=== PATIENT | male | born 1940 | race Caucasian/White ===

== ENCOUNTER 2017-10-18 14:47 | Emergency (ER) | payer OTHER ==
[2017-10-18] MEDS: KETOROLAC 30 MG INJ IM (16:40)
[2017-10-18] MEDS: morphine 4 MG/ML VIAL IM (16:40)
== END 2017-10-18 17:47 | disposition home or self-care (01) ==
LOC: FTE 14:47
DX: M54.30 Sciatica, unspecified side (principal); I10 Essential (primary) hypertension; Z79.82 Long term (current) use of aspirin
CPT/HCPCS: 72131; 96372; 99285-25

== ENCOUNTER 2018-02-08 12:28 | Inpatient (IN) | payer OTHER ==
[2018-02-08] MEDS: KETOROLAC 30 MG INJ IM (13:15)
[2018-02-08] MEDS ORDERED: ONDANSETRON 4 MG INJ IV (14:30)
[2018-02-08] MEDS ORDERED: NACL 0.9% 3 ML SYG IV (14:30)
[2018-02-08] MEDS ORDERED: VANCOMYCIN IV PER PHARMACY XX (14:30)
[2018-02-08] MEDS ORDERED: DOCUSATE SODIUM 100 MG CAP PO (14:30)
[2018-02-08] MEDS: NIFEdipine (XL) 30 MG TAB PO (14:30)
[2018-02-08 14:35] LABS: ADD MAN DIFF? NO
[2018-02-08 14:39] LABS: BASOPHIL # 0.1 10^3/ul (0.0-0.1); BASOPHILS % 0.8 % (0.0-2.0); EOSINOPHILS # 0.5 10^3/ul (0.0-0.5); EOSINOPHILS % 7.2 % (0.0-7.0); HEMATOCRIT 34.8 % (42.0-52.0); HEMOGLOBIN 11.2 g/dl (14.0-18.0); LYMPHOCYTES # 1.3 10^3/ul (0.8-2.9); LYMPHOCYTES % 19.4 % (15.0-51.0); MEAN CORPUSCULAR HEMOGLOBIN 30.6 pg (29.0-33.0); MEAN CORPUSCULAR HGB CONC 32.2 g/dl (32.0-37.0); MEAN CORPUSCULAR VOLUME 95.1 fl (82.0-101.0); MEAN PLATELET VOLUME 10.8 fl (7.4-10.4); MONOCYTE # 0.7 10^3/ul (0.3-0.9); MONOCYTES % 10.2 % (0.0-11.0); NEUTROPHIL # 4.1 10^3/ul (1.6-7.5); NEUTROPHILS % 62.1 % (39.0-77.0); PLATELET COUNT 210 10^3/UL (140-415); RED BLOOD COUNT 3.66 10^6/ul (4.70-6.10); RED CELL DISTRIBUTION WIDTH 15.3 % (11.5-14.5)
[2018-02-08 14:39] LABS: WHITE BLOOD COUNT 6.6 10^3/ul (4.8-10.8)
[2018-02-08] MEDS: PIPER-TAZO 3.375 GM IV (PMX) 100 ML IVPB (14:47)
[2018-02-08 14:58] LABS: ANION GAP 15 (8-16); BLOOD UREA NITROGEN 81 mg/dl (7-20); CARBON DIOXIDE 17 mmol/L (21-31); CHLORIDE 113 mmol/L (97-110); CREATININE 5.74 mg/dl (0.61-1.24); GLUCOSE 113 mg/dl (70-220); INR 1.73; PROTIME 20.6 Sec (11.9-14.9); PT RATIO 1.6; SODIUM 139 mmol/L (135-144)
[2018-02-08] MEDS: HYDROCODONE/APAP (5/325) TAB PO (14:58)
[2018-02-08 14:59] LABS: PARTIAL THROMBOPLASTIN TIME 40.3 Sec (25.0-35.0)
[2018-02-08 15:12] LABS: POTASSIUM 6.2 mmol/L (3.5-5.1)
[2018-02-08] MEDS: DEXTROSE 50% 50 ML SYRINGE IV (15:32)
[2018-02-08] MEDS: SOD CHLORIDE 0.9% 1,000 ML IV (15:34)
[2018-02-08] MEDS: NA BICARBONATE 8.4% 50 ML SYG IV (15:35)
[2018-02-08] MEDS: INSULIN REGULAR, HUMAN 100 UNIT/1 ML 3ML VIAL IVP (15:37)
[2018-02-08] MEDS: VANCOMYCIN 1.5 GM in SOD CHLORIDE 0.9% 250 ML IVPB (15:44)
[2018-02-08] MEDS: LOSARTAN 50 MG TAB PO (15:51)
[2018-02-08] MEDS: NA POLYST SULFON 15 GM/60 ML BTL PO (15:53)
[2018-02-08 17:53] LABS: ADD UMIC YES; UR ASCORBIC ACID NEGATIVE (NEGATIVE); UR BILIRUBIN (Dip) NEGATIVE (NEGATIVE); UR BLOOD (Dip) 2+ mg/dL (NEGATIVE); UR CLARITY CLEAR (CLEAR); UR COLOR STRAW (YELLOW); UR GLUCOSE (Dip) 1+ mg/dL (NEGATIVE); UR KETONES (Dip) NEGATIVE (NEGATIVE); UR LEUKOCYTE ESTERASE (Dip) NEGATIVE Leu/ul (NEGATIVE); UR MUCUS FEW /HPF (NONE SEEN); UR NITRITE (Dip) NEGATIVE (NEGATIVE); UR RBC 27 /HPF (0-5); UR SPECIFIC GRAVITY (Dip) 1.013 (1.003-1.030); UR TOTAL PROTEIN (Dip) 1+ mg/dl (NEGATIVE); UR UROBILINOGEN (Dip) NEGATIVE (NEGATIVE); UR WBC 1 /HPF (0-5)
[2018-02-08 18:04] LABS: CREATININE,URINE RANDOM 76.79 mg/dl (20-370); POTASSIUM,URINE RANDOM 26.8 mmol/L (25-125)
[2018-02-08 18:04] LABS: SODIUM,URINE RANDOM 80 mmol/L (30-90)
[2018-02-08 19:35] LABS: ANION GAP 14 (8-16); BLOOD UREA NITROGEN 79 mg/dl (7-20); CALCIUM 8.4 mg/dl (8.4-10.2); CARBON DIOXIDE 18 mmol/L (21-31); CHLORIDE 114 mmol/L (97-110); CREATININE 5.63 mg/dl (0.61-1.24); GLUCOSE 84 mg/dl (70-220); POTASSIUM 5.1 mmol/L (3.5-5.1); SODIUM 141 mmol/L (135-144)
[2018-02-08 19:36] LABS: CREATININE,URINE RANDOM 75.25 mg/dl (20-370); PROTEIN/CREAT RATIO 0.94 RATIO
[2018-02-08] MEDS: NIFEdipine (XL) 60 MG TAB PO (21:24)
[2018-02-08] MEDS: CITRIC ACID/SODIUM CITRATE 15 ML CUP PO (21:24)
[2018-02-08] MEDS: APIXABAN 5 MG TABLET PO (21:25)
[2018-02-08] MEDS: PIPER-TAZO 2.25 GM (PMX) 50 ML IVPB (21:27)
[2018-02-08] MEDS: morphine 2 MG INJ IV (21:28)
[2018-02-08] MEDS ORDERED: PIPER-TAZO 3.375 GM IV (PMX) 100 ML IVPB (22:00)
[2018-02-09] MEDS: hydrALAzine 20 MG INJ IV ×2 (04:24→09:34)
[2018-02-09] MEDS: PANTOPRAZOLE (EC) 40 MG TAB PO (05:22)
[2018-02-09] MEDS: HYDROCODONE/APAP (5/325) TAB PO ×2 (05:22→22:24)
[2018-02-09] MEDS: PIPER-TAZO 2.25 GM (PMX) 50 ML IVPB ×3 (05:26→21:15)
[2018-02-09] MEDS: CITRIC ACID/SODIUM CITRATE 15 ML CUP PO ×3 (07:45→20:29)
[2018-02-09] MEDS: APIXABAN 5 MG TABLET PO ×2 (07:45→20:30)
[2018-02-09] MEDS: NIFEdipine (XL) 60 MG TAB PO ×2 (07:47→20:30)
[2018-02-09] MEDS: ASPIRIN 81 MG TAB PO (08:44)
[2018-02-09] MEDS: NITROGLYCERIN 0.2 MG/HR PATCH TRANSDERM (09:34)
[2018-02-09 09:35] LABS: ADD MAN DIFF? NO
[2018-02-09 09:37] LABS: BASOPHIL # 0.1 10^3/ul (0.0-0.1); BASOPHILS % 0.7 % (0.0-2.0); EOSINOPHILS # 0.5 10^3/ul (0.0-0.5); EOSINOPHILS % 6.3 % (0.0-7.0); HEMATOCRIT 32.4 % (42.0-52.0); HEMOGLOBIN 10.5 g/dl (14.0-18.0); LYMPHOCYTES % 13.6 % (15.0-51.0); MEAN CORPUSCULAR HEMOGLOBIN 30.9 pg (29.0-33.0); MEAN CORPUSCULAR HGB CONC 32.4 g/dl (32.0-37.0); MEAN CORPUSCULAR VOLUME 95.3 fl (82.0-101.0); MEAN PLATELET VOLUME 11.5 fl (7.4-10.4); MONOCYTE # 0.5 10^3/ul (0.3-0.9); MONOCYTES % 7.2 % (0.0-11.0); NEUTROPHIL # 5.4 10^3/ul (1.6-7.5); NEUTROPHILS % 71.8 % (39.0-77.0); PLATELET COUNT 203 10^3/UL (140-415); RED CELL DISTRIBUTION WIDTH 15.9 % (11.5-14.5)
[2018-02-09 09:37] LABS: WHITE BLOOD COUNT 7.5 10^3/ul (4.8-10.8)
[2018-02-09 10:03] LABS: ALANINE AMINOTRANSFERASE 18 IU/L (13-69); ALBUMIN 2.9 g/dl (3.3-4.9); ALBUMIN/GLOBULIN RATIO 1.11; ALKALINE PHOSPHATASE 56 IU/L (42-121); ANION GAP 17 (8-16); ASPARTATE AMINO TRANSFERASE 11 IU/L (15-46); BILIRUBIN,INDIRECT 0.7 mg/dl (0-1.1); BILIRUBIN,TOTAL 0.7 mg/dl (0.2-1.3); BLOOD UREA NITROGEN 78 mg/dl (7-20); CALCIUM 8.6 mg/dl (8.4-10.2); CARBON DIOXIDE 17 mmol/L (21-31); CHLORIDE 114 mmol/L (97-110); CREATININE 5.56 mg/dl (0.61-1.24); GLUCOSE 145 mg/dl (70-220); POTASSIUM 4.6 mmol/L (3.5-5.1); SODIUM 143 mmol/L (135-144); TOTAL PROTEIN 5.5 g/dl (6.1-8.1)
[2018-02-09 10:05] LABS: ALBUMIN 3.1 g/dl (3.3-4.9); ANION GAP 15 (8-16); BLOOD UREA NITROGEN 78 mg/dl (7-20); CALCIUM 8.5 mg/dl (8.4-10.2); CARBON DIOXIDE 18 mmol/L (21-31); CHLORIDE 114 mmol/L (97-110); CREATINE KINASE 70 IU/L (23-200); CREATININE 5.68 mg/dl (0.61-1.24); GLUCOSE 146 mg/dl (70-220); MAGNESIUM 2.1 mg/dl (1.7-2.5); PHOSPHORUS 4.7 mg/dl (2.5-4.9); POTASSIUM 4.5 mmol/L (3.5-5.1); SODIUM 142 mmol/L (135-144); URIC ACID 8.1 mg/dl (3.1-7.9)
[2018-02-09] MEDS: SODIUM BICARBONATE (IV ADD) 100 MEQ in DEXTROSE 5% 1,000 ML IV (12:25)
[2018-02-09] MEDS: CLOPIDOGREL 75 MG TAB PO (17:18)
[2018-02-10] MEDS: morphine LIQ (10 MG/5 ML) CUP PO (00:26)
[2018-02-10] MEDS: SODIUM BICARBONATE (IV ADD) 100 MEQ in DEXTROSE 5% 1,000 ML IV ×2 (01:20→06:17)
[2018-02-10] MEDS: PIPER-TAZO 2.25 GM (PMX) 50 ML IVPB ×3 (05:34→21:39)
[2018-02-10] MEDS: PANTOPRAZOLE (EC) 40 MG TAB PO (05:38)
[2018-02-10 06:10] LABS: ADD MAN DIFF? NO
[2018-02-10 06:20] LABS: BASOPHIL # 0.1 10^3/ul (0.0-0.1); BASOPHILS % 0.5 % (0.0-2.0); EOSINOPHILS # 0.4 10^3/ul (0.0-0.5); HEMATOCRIT 30.9 % (42.0-52.0); HEMOGLOBIN 10.3 g/dl (14.0-18.0); LYMPHOCYTES # 1.3 10^3/ul (0.8-2.9); LYMPHOCYTES % 12.5 % (15.0-51.0); MEAN CORPUSCULAR HEMOGLOBIN 30.6 pg (29.0-33.0); MEAN CORPUSCULAR HGB CONC 33.3 g/dl (32.0-37.0); MEAN CORPUSCULAR VOLUME 91.7 fl (82.0-101.0); MONOCYTE # 0.9 10^3/ul (0.3-0.9); MONOCYTES % 9.3 % (0.0-11.0); NEUTROPHIL # 7.3 10^3/ul (1.6-7.5); NEUTROPHILS % 73.4 % (39.0-77.0); PLATELET COUNT 217 10^3/UL (140-415); RED BLOOD COUNT 3.37 10^6/ul (4.70-6.10); RED CELL DISTRIBUTION WIDTH 15.6 % (11.5-14.5)
[2018-02-10 07:00] LABS: ALBUMIN 3.1 g/dl (3.3-4.9); ANION GAP 16 (8-16); BLOOD UREA NITROGEN 76 mg/dl (7-20); CALCIUM 8.8 mg/dl (8.4-10.2); CARBON DIOXIDE 21 mmol/L (21-31); CHLORIDE 103 mmol/L (97-110); CREATININE 6.34 mg/dl (0.61-1.24); GLUCOSE 143 mg/dl (70-220); PHOSPHORUS 5.7 mg/dl (2.5-4.9); POTASSIUM 3.8 mmol/L (3.5-5.1); SODIUM 136 mmol/L (135-144)
[2018-02-10 07:12] LABS: VANCOMYCIN,RANDOM 14.1 ug/ml
[2018-02-10] MEDS: CITRIC ACID/SODIUM CITRATE 15 ML CUP PO ×3 (08:28→20:13)
[2018-02-10] MEDS: APIXABAN 5 MG TABLET PO ×2 (08:29→20:13)
[2018-02-10] MEDS: NIFEdipine (XL) 60 MG TAB PO ×2 (08:29→20:14)
[2018-02-10] MEDS: CLOPIDOGREL 75 MG TAB PO (08:29)
[2018-02-10] MEDS: NITROGLYCERIN 0.2 MG/HR PATCH TRANSDERM (08:29)
[2018-02-10] MEDS: VANCOMYCIN 1 GM 250 ML IVPB (15:39)
[2018-02-11] MEDS: BENZONATATE 100 MG CAP PO (05:48)
[2018-02-11] MEDS: PIPER-TAZO 2.25 GM (PMX) 50 ML IVPB ×3 (05:48→22:34)
[2018-02-11] MEDS: PANTOPRAZOLE (EC) 40 MG TAB PO (05:48)
[2018-02-11 06:14] LABS: ADD MAN DIFF? NO
[2018-02-11 06:19] LABS: WHITE BLOOD COUNT 8.3 10^3/ul (4.8-10.8)
[2018-02-11 06:19] LABS: BASOPHILS % 0.5 % (0.0-2.0); EOSINOPHILS # 0.2 10^3/ul (0.0-0.5); EOSINOPHILS % 2.9 % (0.0-7.0); HEMATOCRIT 28.6 % (42.0-52.0); HEMOGLOBIN 9.7 g/dl (14.0-18.0); LYMPHOCYTES # 1.2 10^3/ul (0.8-2.9); LYMPHOCYTES % 13.9 % (15.0-51.0); MEAN CORPUSCULAR HEMOGLOBIN 31.1 pg (29.0-33.0); MEAN CORPUSCULAR HGB CONC 33.9 g/dl (32.0-37.0); MEAN CORPUSCULAR VOLUME 91.7 fl (82.0-101.0); MEAN PLATELET VOLUME 11.6 fl (7.4-10.4); MONOCYTE # 0.7 10^3/ul (0.3-0.9); MONOCYTES % 8.4 % (0.0-11.0); NEUTROPHIL # 6.1 10^3/ul (1.6-7.5); NEUTROPHILS % 73.8 % (39.0-77.0); PLATELET COUNT 199 10^3/UL (140-415); RED BLOOD COUNT 3.12 10^6/ul (4.70-6.10); RED CELL DISTRIBUTION WIDTH 15.5 % (11.5-14.5)
[2018-02-11 06:43] LABS: ANION GAP 19 (8-16); BLOOD UREA NITROGEN 77 mg/dl (7-20); CALCIUM 8.4 mg/dl (8.4-10.2); CARBON DIOXIDE 24 mmol/L (21-31); CHLORIDE 91 mmol/L (97-110); CREATININE 7.04 mg/dl (0.61-1.24); GLUCOSE 100 mg/dl (70-220); MAGNESIUM 1.9 mg/dl (1.7-2.5); PHOSPHORUS 6.6 mg/dl (2.5-4.9); POTASSIUM 4.1 mmol/L (3.5-5.1); SODIUM 130 mmol/L (135-144)
[2018-02-11] MEDS: HYDROCODONE/APAP (5/325) TAB PO (06:46)
[2018-02-11] MEDS: CITRIC ACID/SODIUM CITRATE 15 ML CUP PO ×3 (08:10→22:35)
[2018-02-11] MEDS: NITROGLYCERIN 0.2 MG/HR PATCH TRANSDERM (08:12)
[2018-02-11] MEDS: CLOPIDOGREL 75 MG TAB PO (08:12)
[2018-02-11] MEDS: APIXABAN 5 MG TABLET PO ×2 (08:12→22:34)
[2018-02-11] MEDS: NIFEdipine (XL) 60 MG TAB PO (08:13)
[2018-02-11] MEDS: ALLOPURINOL 100 MG TAB PO (11:19)
[2018-02-11] MEDS: NIFEdipine (XL) 30 MG TAB PO (22:34)
[2018-02-12 05:31] LABS: ADD MAN DIFF? NO
[2018-02-12 05:36] LABS: WHITE BLOOD COUNT 8.9 10^3/ul (4.8-10.8)
[2018-02-12 05:36] LABS: BASOPHILS % 0.3 % (0.0-2.0); EOSINOPHILS # 0.1 10^3/ul (0.0-0.5); EOSINOPHILS % 1.2 % (0.0-7.0); HEMATOCRIT 26.8 % (42.0-52.0); LYMPHOCYTES # 1.2 10^3/ul (0.8-2.9); MEAN CORPUSCULAR HEMOGLOBIN 30.3 pg (29.0-33.0); MEAN CORPUSCULAR HGB CONC 33.6 g/dl (32.0-37.0); MEAN CORPUSCULAR VOLUME 90.2 fl (82.0-101.0); MEAN PLATELET VOLUME 11.7 fl (7.4-10.4); MONOCYTE # 0.9 10^3/ul (0.3-0.9); MONOCYTES % 9.9 % (0.0-11.0); NEUTROPHIL # 6.7 10^3/ul (1.6-7.5); NEUTROPHILS % 75.3 % (39.0-77.0); PLATELET COUNT 194 10^3/UL (140-415); RED BLOOD COUNT 2.97 10^6/ul (4.70-6.10)
[2018-02-12] MEDS: PIPER-TAZO 2.25 GM (PMX) 50 ML IVPB ×3 (05:51→23:03)
[2018-02-12] MEDS: PANTOPRAZOLE (EC) 40 MG TAB PO (05:51)
[2018-02-12 06:02] LABS: ALBUMIN 3.3 g/dl (3.3-4.9); ANION GAP 22 (8-16); BLOOD UREA NITROGEN 82 mg/dl (7-20); CALCIUM 8.3 mg/dl (8.4-10.2); CARBON DIOXIDE 24 mmol/L (21-31); CHLORIDE 88 mmol/L (97-110); CREATININE 8.08 mg/dl (0.61-1.24); GLUCOSE 118 mg/dl (70-220); PHOSPHORUS 8.1 mg/dl (2.5-4.9); POTASSIUM 3.8 mmol/L (3.5-5.1); SODIUM 130 mmol/L (135-144)
[2018-02-12] MEDS ORDERED: VITAMIN A & D 5 GM OINT PACKET TOP (08:12)
[2018-02-12] MEDS: APIXABAN 5 MG TABLET PO ×2 (08:59→21:03)
[2018-02-12] MEDS: NITROGLYCERIN 0.2 MG/HR PATCH TRANSDERM (08:59)
[2018-02-12] MEDS: CITRIC ACID/SODIUM CITRATE 15 ML CUP PO ×2 (08:59→15:01)
[2018-02-12] MEDS: ALLOPURINOL 100 MG TAB PO (08:59)
[2018-02-12] MEDS: CLOPIDOGREL 75 MG TAB PO (08:59)
[2018-02-12] MEDS: NIFEdipine (XL) 30 MG TAB PO ×2 (09:00→21:02)
[2018-02-12] MEDS ORDERED: ALBUMIN HUMAN 25% 100 ML IV (11:30)
[2018-02-12] MEDS ORDERED: SODIUM CHLORIDE 0.9% 1L BAG IV (11:30)
[2018-02-12 11:49] LABS: HAAIG REFLEX REFLEX FILED
[2018-02-12] MEDS: ALBUTEROL 0.083% (NEB) 2.5 MG/3 ML AMP HHN ×2 (13:51→17:01)
[2018-02-12 14:34] LABS: HEPATITIS B SURFACE ANTIGEN NEGATIVE (NEGATIVE)
[2018-02-12 14:51] LABS: HEPATITIS B CORE ANTIBODY NEGATIVE (NEGATIVE); HEPATITIS C VIRAL ANTIBODY NEGATIVE (NEGATIVE); HIV 1&2 ANTIBODY NEGATIVE (NEGATIVE)
[2018-02-12] MEDS: SOD CHLORIDE 0.45% 1,000 ML IV (15:01)
[2018-02-12] MEDS: FUROSEMIDE 40 MG INJ IV (17:47)
[2018-02-13] MEDS: CITRIC ACID/SODIUM CITRATE 15 ML CUP PO ×3 (00:01→13:15)
[2018-02-13] MEDS: ALBUTEROL 0.083% (NEB) 2.5 MG/3 ML AMP HHN ×2 (00:07→05:05)
[2018-02-13] MEDS ORDERED: FUROSEMIDE 40 MG INJ IM (01:00)
[2018-02-13] MEDS: FUROSEMIDE 40 MG INJ IV (02:07)
[2018-02-13] MEDS: ACETAMINOPHEN 325 MG TAB PO (02:37)
[2018-02-13 05:48] LABS: ADD MAN DIFF? NO
[2018-02-13 05:50] LABS: WHITE BLOOD COUNT 9.7 10^3/ul (4.8-10.8)
[2018-02-13 05:50] LABS: BASOPHILS % 0.2 % (0.0-2.0); EOSINOPHILS # 0.1 10^3/ul (0.0-0.5); EOSINOPHILS % 0.5 % (0.0-7.0); HEMATOCRIT 25.6 % (42.0-52.0); HEMOGLOBIN 8.6 g/dl (14.0-18.0); LYMPHOCYTES % 10.5 % (15.0-51.0); MEAN CORPUSCULAR HEMOGLOBIN 29.7 pg (29.0-33.0); MEAN CORPUSCULAR HGB CONC 33.6 g/dl (32.0-37.0); MEAN CORPUSCULAR VOLUME 88.3 fl (82.0-101.0); MEAN PLATELET VOLUME 11.7 fl (7.4-10.4); MONOCYTE # 0.9 10^3/ul (0.3-0.9); MONOCYTES % 8.7 % (0.0-11.0); NEUTROPHIL # 7.7 10^3/ul (1.6-7.5); NEUTROPHILS % 79.6 % (39.0-77.0); PLATELET COUNT 206 10^3/UL (140-415)
[2018-02-13] MEDS: PANTOPRAZOLE (EC) 40 MG TAB PO (06:00)
[2018-02-13 06:19] LABS: ALBUMIN 3.4 g/dl (3.3-4.9); ANION GAP 24 (8-16); BLOOD UREA NITROGEN 88 mg/dl (7-20); CALCIUM 8.4 mg/dl (8.4-10.2); CARBON DIOXIDE 23 mmol/L (21-31); CHLORIDE 85 mmol/L (97-110); CREATININE 9.22 mg/dl (0.61-1.24); GLUCOSE 116 mg/dl (70-220); MAGNESIUM 2.1 mg/dl (1.7-2.5); PHOSPHORUS 9.4 mg/dl (2.5-4.9); POTASSIUM 3.6 mmol/L (3.5-5.1); SODIUM 128 mmol/L (135-144)
[2018-02-13 06:29] LABS: VANCOMYCIN,RANDOM 18.8 ug/ml
[2018-02-13] MEDS: PIPER-TAZO 2.25 GM (PMX) 50 ML IVPB ×3 (06:32→21:45)
[2018-02-13] MEDS ORDERED: LIDOCAINE 1% (MPF) 30 ML INJ (07:02)
[2018-02-13] MEDS ORDERED: HEPARIN 1000 UNITS/ML 10 ML INJ (07:02)
[2018-02-13] MEDS: LIDOCAINE 1% (MPF) 30 ML INJ INJ (07:59)
[2018-02-13] MEDS: HEPARIN 1000 UNITS/ML 10 ML INJ IRR (08:00)
[2018-02-13] MEDS ORDERED: hydrALAzine 20 MG INJ IV (08:30)
[2018-02-13] MEDS ORDERED: FENTAnyl 50 MCG/ML VIAL IV (08:30)
[2018-02-13] MEDS ORDERED: HYDROmorphONE 1 MG/5 ML IV SYRINGE IV ×2 (08:30)
[2018-02-13] MEDS ORDERED: MEPERIDINE 25 MG INJ IV (08:30)
[2018-02-13] MEDS ORDERED: PROCHLORPERAZINE 10 MG INJ IV (08:30)
[2018-02-13] MEDS ORDERED: DIPHENHYDRAMINE 50 MG INJ IV (08:30)
[2018-02-13] MEDS ORDERED: LABETALOL HCL 20MG INJ IV (08:30)
[2018-02-13] MEDS ORDERED: ONDANSETRON 4 MG INJ IV (08:30)
[2018-02-13] MEDS ORDERED: FENTAnyl 50 MCG/ML VIAL (08:31)
[2018-02-13] MEDS ORDERED: LABETALOL HCL 20MG INJ (09:02)
[2018-02-13] MEDS ORDERED: CEFAZOLIN 1 GM INJ (09:05)
[2018-02-13] MEDS: CLOPIDOGREL 75 MG TAB PO (10:48)
[2018-02-13] MEDS: NITROGLYCERIN 0.2 MG/HR PATCH TRANSDERM (10:48)
[2018-02-13] MEDS: ALLOPURINOL 100 MG TAB PO (10:48)
[2018-02-13] MEDS: NIFEdipine (XL) 30 MG TAB PO ×2 (10:49→21:45)
[2018-02-13] MEDS: HYDROCODONE/APAP (5/325) TAB PO ×2 (10:49→19:47)
[2018-02-13] MEDS: MANNITOL 25% 50 ML INJ IV* (18:15)
[2018-02-13] MEDS: HEPARIN 1000 UNITS/ML 10 ML INJ CATHETER (18:16)
[2018-02-13] MEDS: VANCOMYCIN 750 MG in SOD CHLORIDE 0.9% 150 ML IVPB (21:44)
[2018-02-13] MEDS: APIXABAN 5 MG TABLET PO (21:46)
[2018-02-14] MEDS: morphine LIQ (10 MG/5 ML) CUP PO (01:42)
[2018-02-14] MEDS: MAGNESIUM HYDROXIDE 30ML CUP PO (01:44)
[2018-02-14 05:41] LABS: ADD MAN DIFF? NO
[2018-02-14 05:50] LABS: BASOPHILS % 0.4 % (0.0-2.0); EOSINOPHILS # 0.1 10^3/ul (0.0-0.5); EOSINOPHILS % 1.2 % (0.0-7.0); HEMATOCRIT 23.1 % (42.0-52.0); HEMOGLOBIN 7.9 g/dl (14.0-18.0); LYMPHOCYTES # 0.8 10^3/ul (0.8-2.9); LYMPHOCYTES % 9.7 % (15.0-51.0); MEAN CORPUSCULAR HEMOGLOBIN 30.5 pg (29.0-33.0); MEAN CORPUSCULAR HGB CONC 34.2 g/dl (32.0-37.0); MEAN CORPUSCULAR VOLUME 89.2 fl (82.0-101.0); MEAN PLATELET VOLUME 11.5 fl (7.4-10.4); MONOCYTE # 0.8 10^3/ul (0.3-0.9); MONOCYTES % 9.5 % (0.0-11.0); NEUTROPHIL # 6.5 10^3/ul (1.6-7.5); NEUTROPHILS % 78.8 % (39.0-77.0); PLATELET COUNT 205 10^3/UL (140-415); RED BLOOD COUNT 2.59 10^6/ul (4.70-6.10); RED CELL DISTRIBUTION WIDTH 15.3 % (11.5-14.5)
[2018-02-14 05:50] LABS: WHITE BLOOD COUNT 8.2 10^3/ul (4.8-10.8)
[2018-02-14] MEDS: PANTOPRAZOLE (EC) 40 MG TAB PO (06:14)
[2018-02-14] MEDS: PIPER-TAZO 2.25 GM (PMX) 50 ML IVPB (06:14)
[2018-02-14 06:18] LABS: ALBUMIN 3.2 g/dl (3.3-4.9); ANION GAP 19 (8-16); BLOOD UREA NITROGEN 66 mg/dl (7-20); CALCIUM 8.4 mg/dl (8.4-10.2); CARBON DIOXIDE 25 mmol/L (21-31); CHLORIDE 93 mmol/L (97-110); CREATININE 6.91 mg/dl (0.61-1.24); GLUCOSE 110 mg/dl (70-220); MAGNESIUM 2.1 mg/dl (1.7-2.5); PHOSPHORUS 7.6 mg/dl (2.5-4.9); POTASSIUM 3.5 mmol/L (3.5-5.1); SODIUM 133 mmol/L (135-144)
[2018-02-14] MEDS: ALLOPURINOL 100 MG TAB PO (08:16)
[2018-02-14] MEDS: NITROGLYCERIN 0.2 MG/HR PATCH TRANSDERM (08:20)
[2018-02-14] MEDS: NIFEdipine (XL) 30 MG TAB PO ×3 (08:20→20:56)
[2018-02-14] MEDS: APIXABAN 5 MG TABLET PO (08:51)
[2018-02-14] MEDS: CLOPIDOGREL 75 MG TAB PO (08:51)
[2018-02-14] MEDS: HEPARIN 1000 UNITS/ML 10 ML INJ CATHETER (15:03)
[2018-02-14 17:49] LABS: HEMATOCRIT 23.6 % (42.0-52.0)
[2018-02-14 23:18] LABS: IMMEDIATE SPIN CROSSMATCH 1 1
[2018-02-14] MEDS: hydrALAzine 20 MG INJ IV (23:23)
[2018-02-14] MEDS: SOD CHLORIDE 0.9% 250 ML IV* (23:34)
[2018-02-15] MEDS: PANTOPRAZOLE (EC) 40 MG TAB PO (05:33)
[2018-02-15 05:54] LABS: ADD MAN DIFF? NO
[2018-02-15 06:02] LABS: WHITE BLOOD COUNT 8.3 10^3/ul (4.8-10.8)
[2018-02-15 06:02] LABS: BASOPHIL # 0.1 10^3/ul (0.0-0.1); BASOPHILS % 0.7 % (0.0-2.0); EOSINOPHILS # 0.2 10^3/ul (0.0-0.5); EOSINOPHILS % 2.9 % (0.0-7.0); HEMATOCRIT 26.1 % (42.0-52.0); HEMOGLOBIN 8.7 g/dl (14.0-18.0); LYMPHOCYTES # 0.9 10^3/ul (0.8-2.9); LYMPHOCYTES % 10.8 % (15.0-51.0); MEAN CORPUSCULAR HGB CONC 33.3 g/dl (32.0-37.0); MEAN PLATELET VOLUME 11.5 fl (7.4-10.4); NEUTROPHILS % 72.8 % (39.0-77.0); NUCLEATED RED BLOOD CELLS% 0.2 /100WBC (0.0-0.0); PLATELET COUNT 218 10^3/UL (140-415); RED CELL DISTRIBUTION WIDTH 16.5 % (11.5-14.5)
[2018-02-15 06:28] LABS: ALBUMIN 2.8 g/dl (3.3-4.9); ANION GAP 14 (8-16); BLOOD UREA NITROGEN 38 mg/dl (7-20); CALCIUM 8.4 mg/dl (8.4-10.2); CARBON DIOXIDE 27 mmol/L (21-31); CHLORIDE 99 mmol/L (97-110); CREATININE 4.06 mg/dl (0.61-1.24); GLUCOSE 111 mg/dl (70-220); MAGNESIUM 2.1 mg/dl (1.7-2.5); PHOSPHORUS 4.4 mg/dl (2.5-4.9); POTASSIUM 3.6 mmol/L (3.5-5.1); SODIUM 136 mmol/L (135-144)
[2018-02-15] MEDS: CLOPIDOGREL 75 MG TAB PO (08:25)
[2018-02-15] MEDS: NIFEdipine (XL) 30 MG TAB PO ×2 (08:26→21:00)
[2018-02-15] MEDS: ALLOPURINOL 100 MG TAB PO (08:26)
[2018-02-15] MEDS: NITROGLYCERIN 0.2 MG/HR PATCH TRANSDERM (08:29)
[2018-02-16] MEDS: HEPARIN 1000 UNITS/ML 10 ML INJ CATHETER (01:56)
[2018-02-16] MEDS: hydrALAzine 20 MG INJ IV (05:03)
[2018-02-16] MEDS: PANTOPRAZOLE (EC) 40 MG TAB PO (05:06)
[2018-02-16 05:40] LABS: ADD MAN DIFF? NO
[2018-02-16 06:00] LABS: WHITE BLOOD COUNT 7.7 10^3/ul (4.8-10.8)
[2018-02-16 06:00] LABS: BASOPHILS % 0.4 % (0.0-2.0); EOSINOPHILS # 0.3 10^3/ul (0.0-0.5); EOSINOPHILS % 3.9 % (0.0-7.0); HEMATOCRIT 25.5 % (42.0-52.0); HEMOGLOBIN 8.4 g/dl (14.0-18.0); LYMPHOCYTES # 1.2 10^3/ul (0.8-2.9); LYMPHOCYTES % 14.9 % (15.0-51.0); MEAN CORPUSCULAR HEMOGLOBIN 30.1 pg (29.0-33.0); MEAN CORPUSCULAR HGB CONC 32.9 g/dl (32.0-37.0); MEAN CORPUSCULAR VOLUME 91.4 fl (82.0-101.0); MEAN PLATELET VOLUME 10.9 fl (7.4-10.4); MONOCYTE # 0.9 10^3/ul (0.3-0.9); MONOCYTES % 11.5 % (0.0-11.0); NEUTROPHIL # 5.3 10^3/ul (1.6-7.5); NEUTROPHILS % 68.8 % (39.0-77.0); PLATELET COUNT 239 10^3/UL (140-415); RED BLOOD COUNT 2.79 10^6/ul (4.70-6.10); RED CELL DISTRIBUTION WIDTH 16.8 % (11.5-14.5)
[2018-02-16 06:28] LABS: ANION GAP 14 (8-16); BLOOD UREA NITROGEN 19 mg/dl (7-20); CALCIUM 8.7 mg/dl (8.4-10.2); CARBON DIOXIDE 28 mmol/L (21-31); CHLORIDE 99 mmol/L (97-110); CREATININE 2.54 mg/dl (0.61-1.24); GLUCOSE 101 mg/dl (70-220); PHOSPHORUS 2.8 mg/dl (2.5-4.9); POTASSIUM 3.3 mmol/L (3.5-5.1); SODIUM 138 mmol/L (135-144)
[2018-02-16] MEDS: CLOPIDOGREL 75 MG TAB PO (09:21)
[2018-02-16] MEDS: NIFEdipine (XL) 30 MG TAB PO ×2 (09:21→20:20)
[2018-02-16] MEDS: ALLOPURINOL 100 MG TAB PO (09:22)
[2018-02-16] MEDS: POTASSIUM CHLORIDE (SR) 20 MEQ TAB PO (09:22)
[2018-02-16] MEDS: NITROGLYCERIN 0.2 MG/HR PATCH TRANSDERM (09:23)
[2018-02-16] MEDS ORDERED: AMLODIPINE 10 MG TAB PO (10:30)
[2018-02-16] MEDS: HYDROCODONE/APAP (5/325) TAB PO (14:19)
[2018-02-16] MEDS: ACETAMINOPHEN 325 MG TAB PO (20:27)
[2018-02-17] MEDS: HYDROCODONE/APAP (5/325) TAB PO ×2 (00:08→18:42)
[2018-02-17] MEDS: PANTOPRAZOLE (EC) 40 MG TAB PO (05:21)
[2018-02-17 06:05] LABS: ADD MAN DIFF? NO
[2018-02-17 06:11] LABS: BASOPHIL # 0.1 10^3/ul (0.0-0.1); BASOPHILS % 0.7 % (0.0-2.0); EOSINOPHILS # 0.4 10^3/ul (0.0-0.5); EOSINOPHILS % 5.3 % (0.0-7.0); HEMATOCRIT 22.8 % (42.0-52.0); HEMOGLOBIN 7.6 g/dl (14.0-18.0); LYMPHOCYTES # 1.1 10^3/ul (0.8-2.9); MEAN CORPUSCULAR HEMOGLOBIN 30.6 pg (29.0-33.0); MEAN CORPUSCULAR HGB CONC 33.3 g/dl (32.0-37.0); MEAN CORPUSCULAR VOLUME 91.9 fl (82.0-101.0); MEAN PLATELET VOLUME 10.8 fl (7.4-10.4); MONOCYTE # 0.8 10^3/ul (0.3-0.9); MONOCYTES % 11.9 % (0.0-11.0); NEUTROPHIL # 4.7 10^3/ul (1.6-7.5); NEUTROPHILS % 66.5 % (39.0-77.0); PLATELET COUNT 214 10^3/UL (140-415); RED BLOOD COUNT 2.48 10^6/ul (4.70-6.10); RED CELL DISTRIBUTION WIDTH 16.5 % (11.5-14.5)
[2018-02-17 06:44] LABS: ANION GAP 12 (8-16); BLOOD UREA NITROGEN 33 mg/dl (7-20); CALCIUM 8.7 mg/dl (8.4-10.2); CARBON DIOXIDE 27 mmol/L (21-31); CHLORIDE 99 mmol/L (97-110); CREATININE 3.51 mg/dl (0.61-1.24); GLUCOSE 111 mg/dl (70-220); PHOSPHORUS 3.6 mg/dl (2.5-4.9); POTASSIUM 3.8 mmol/L (3.5-5.1); SODIUM 134 mmol/L (135-144)
[2018-02-17 06:59] LABS: MAGNESIUM 2.2 mg/dl (1.7-2.5)
[2018-02-17] MEDS: HEPARIN 1000 UNITS/ML 10 ML INJ CATHETER (13:21)
[2018-02-17] MEDS: ALLOPURINOL 100 MG TAB PO (14:24)
[2018-02-17] MEDS: NIFEdipine (XL) 30 MG TAB PO ×2 (14:25→20:24)
[2018-02-17] MEDS: CLOPIDOGREL 75 MG TAB PO (14:25)
[2018-02-17] MEDS: NITROGLYCERIN 0.2 MG/HR PATCH TRANSDERM (14:26)
[2018-02-18] MEDS: PANTOPRAZOLE (EC) 40 MG TAB PO (06:02)
[2018-02-18 06:11] LABS: ADD MAN DIFF? NO
[2018-02-18 06:17] LABS: BASOPHILS % 0.6 % (0.0-2.0); EOSINOPHILS # 0.4 10^3/ul (0.0-0.5); EOSINOPHILS % 6.2 % (0.0-7.0); HEMATOCRIT 22.2 % (42.0-52.0); HEMOGLOBIN 7.2 g/dl (14.0-18.0); LYMPHOCYTES # 1.1 10^3/ul (0.8-2.9); LYMPHOCYTES % 15.3 % (15.0-51.0); MEAN CORPUSCULAR HEMOGLOBIN 29.9 pg (29.0-33.0); MEAN CORPUSCULAR HGB CONC 32.4 g/dl (32.0-37.0); MEAN CORPUSCULAR VOLUME 92.1 fl (82.0-101.0); MEAN PLATELET VOLUME 10.8 fl (7.4-10.4); MONOCYTE # 0.9 10^3/ul (0.3-0.9); MONOCYTES % 12.2 % (0.0-11.0); NEUTROPHIL # 4.6 10^3/ul (1.6-7.5); NEUTROPHILS % 65.3 % (39.0-77.0); PLATELET COUNT 223 10^3/UL (140-415); RED BLOOD COUNT 2.41 10^6/ul (4.70-6.10); RED CELL DISTRIBUTION WIDTH 16.2 % (11.5-14.5)
[2018-02-18 08:35] LABS: ANION GAP 14 (8-16); BLOOD UREA NITROGEN 24 mg/dl (7-20); CALCIUM 8.7 mg/dl (8.4-10.2); CARBON DIOXIDE 27 mmol/L (21-31); CHLORIDE 99 mmol/L (97-110); CREATININE 3.02 mg/dl (0.61-1.24); GLUCOSE 140 mg/dl (70-220); MAGNESIUM 2.1 mg/dl (1.7-2.5); POTASSIUM 3.8 mmol/L (3.5-5.1); SODIUM 136 mmol/L (135-144)
[2018-02-18] MEDS: CLOPIDOGREL 75 MG TAB PO (08:37)
[2018-02-18] MEDS: ALLOPURINOL 100 MG TAB PO (08:37)
[2018-02-18] MEDS: NITROGLYCERIN 0.2 MG/HR PATCH TRANSDERM (08:38)
[2018-02-18] MEDS: NIFEdipine (XL) 30 MG TAB PO ×2 (08:38→20:34)
[2018-02-18] MEDS: SOD CHLORIDE 0.9% 250 ML IV* (10:48)
[2018-02-18 13:46] LABS: IMMEDIATE SPIN CROSSMATCH 1 1
[2018-02-18] MEDS: ALBUTEROL/IPRATROPIUM (NEB) 3 ML AMP HHN ×2 (14:40→20:41)
[2018-02-18] MEDS: ALBUTEROL 0.083% (NEB) 2.5 MG/3 ML AMP HHN (23:46)
[2018-02-19 06:03] LABS: ADD MAN DIFF? NO
[2018-02-19] MEDS: PANTOPRAZOLE (EC) 40 MG TAB PO (06:12)
[2018-02-19 06:15] LABS: BASOPHILS % 0.4 % (0.0-2.0); EOSINOPHILS # 0.4 10^3/ul (0.0-0.5); EOSINOPHILS % 5.4 % (0.0-7.0); HEMOGLOBIN 8.3 g/dl (14.0-18.0); LYMPHOCYTES # 1.1 10^3/ul (0.8-2.9); LYMPHOCYTES % 13.8 % (15.0-51.0); MEAN CORPUSCULAR HEMOGLOBIN 30.2 pg (29.0-33.0); MEAN CORPUSCULAR HGB CONC 33.2 g/dl (32.0-37.0); MEAN CORPUSCULAR VOLUME 90.9 fl (82.0-101.0); MEAN PLATELET VOLUME 10.8 fl (7.4-10.4); MONOCYTE # 0.8 10^3/ul (0.3-0.9); MONOCYTES % 10.5 % (0.0-11.0); NEUTROPHIL # 5.6 10^3/ul (1.6-7.5); NEUTROPHILS % 69.3 % (39.0-77.0); NUCLEATED RED BLOOD CELLS% 0.2 /100WBC (0.0-0.0); PLATELET COUNT 239 10^3/UL (140-415); RED BLOOD COUNT 2.75 10^6/ul (4.70-6.10); RED CELL DISTRIBUTION WIDTH 15.9 % (11.5-14.5)
[2018-02-19 06:48] LABS: ANION GAP 13 (8-16); BLOOD UREA NITROGEN 34 mg/dl (7-20); CALCIUM 8.6 mg/dl (8.4-10.2); CARBON DIOXIDE 28 mmol/L (21-31); CHLORIDE 96 mmol/L (97-110); CREATININE 3.94 mg/dl (0.61-1.24); GLUCOSE 106 mg/dl (70-220); MAGNESIUM 2.1 mg/dl (1.7-2.5); PHOSPHORUS 3.6 mg/dl (2.5-4.9); SODIUM 133 mmol/L (135-144)
[2018-02-19] MEDS: ALBUTEROL/IPRATROPIUM (NEB) 3 ML AMP HHN ×3 (07:32→19:27)
[2018-02-19] MEDS: NIFEdipine (XL) 30 MG TAB PO ×2 (08:39→20:51)
[2018-02-19] MEDS: ALLOPURINOL 100 MG TAB PO (08:39)
[2018-02-19] MEDS: NITROGLYCERIN 0.2 MG/HR PATCH TRANSDERM (08:40)
[2018-02-19] MEDS: BUDESONIDE (NEB) 0.5MG/2ML AMP HHN ×2 (09:30→19:42)
[2018-02-19] MEDS: LEVOFLOXACIN 500MG/D5W (PMX) 100 ML IVPB (09:50)
[2018-02-19] MEDS: BENZONATATE 100 MG CAP PO (09:50)
[2018-02-19] MEDS: HEPARIN 1000 UNITS/ML 10 ML INJ CATHETER (17:15)
[2018-02-19] MEDS: ALBUTEROL 0.083% (NEB) 2.5 MG/3 ML AMP HHN (19:28)
[2018-02-20 05:42] LABS: ADD MAN DIFF? NO
[2018-02-20 05:47] LABS: WHITE BLOOD COUNT 7.3 10^3/ul (4.8-10.8)
[2018-02-20 05:47] LABS: BASOPHILS % 0.3 % (0.0-2.0); EOSINOPHILS # 0.3 10^3/ul (0.0-0.5); EOSINOPHILS % 4.1 % (0.0-7.0); HEMATOCRIT 25.1 % (42.0-52.0); HEMOGLOBIN 8.1 g/dl (14.0-18.0); LYMPHOCYTES % 14.3 % (15.0-51.0); MEAN CORPUSCULAR HEMOGLOBIN 29.8 pg (29.0-33.0); MEAN CORPUSCULAR HGB CONC 32.3 g/dl (32.0-37.0); MEAN CORPUSCULAR VOLUME 92.3 fl (82.0-101.0); MEAN PLATELET VOLUME 10.7 fl (7.4-10.4); MONOCYTE # 0.9 10^3/ul (0.3-0.9); MONOCYTES % 12.3 % (0.0-11.0); NEUTROPHILS % 68.4 % (39.0-77.0); PLATELET COUNT 246 10^3/UL (140-415); RED BLOOD COUNT 2.72 10^6/ul (4.70-6.10); RED CELL DISTRIBUTION WIDTH 15.9 % (11.5-14.5)
[2018-02-20] MEDS: PANTOPRAZOLE (EC) 40 MG TAB PO (06:05)
[2018-02-20 06:15] LABS: ANION GAP 12 (8-16); BLOOD UREA NITROGEN 27 mg/dl (7-20); CALCIUM 8.3 mg/dl (8.4-10.2); CARBON DIOXIDE 29 mmol/L (21-31); CHLORIDE 97 mmol/L (97-110); CREATININE 3.07 mg/dl (0.61-1.24); GLUCOSE 95 mg/dl (70-220); MAGNESIUM 2.1 mg/dl (1.7-2.5); PHOSPHORUS 3.6 mg/dl (2.5-4.9); POTASSIUM 4.1 mmol/L (3.5-5.1); SODIUM 134 mmol/L (135-144)
[2018-02-20] MEDS ORDERED: HEPARIN 1000 UNITS/NS (A-LINE) 1,000 ML (07:22)
[2018-02-20] MEDS ORDERED: LIDOCAINE 1% (MDV) 20 ML INJ (07:22)
[2018-02-20] MEDS ORDERED: IODIXANOL LOCM 100 ML BTL (07:22)
[2018-02-20] MEDS: NITROGLYCERIN 0.2 MG/HR PATCH TRANSDERM (08:19)
[2018-02-20] MEDS: ALLOPURINOL 100 MG TAB PO ×2 (08:19→09:00)
[2018-02-20] MEDS: NIFEdipine (XL) 30 MG TAB PO ×4 (08:19→11:57)
[2018-02-20] MEDS: BUDESONIDE (NEB) 0.5MG/2ML AMP HHN ×2 (08:29→20:00)
[2018-02-20] MEDS: ALBUTEROL/IPRATROPIUM (NEB) 3 ML AMP HHN ×3 (08:29→20:34)
[2018-02-20 17:48] LABS: TROPONIN-I < 0.012 ng/ml (0.000-0.120)
[2018-02-20] MEDS: ALBUTEROL 0.083% (NEB) 2.5 MG/3 ML AMP HHN (20:00)
[2018-02-21] MEDS: ALBUTEROL 0.083% (NEB) 2.5 MG/3 ML AMP HHN (01:09)
[2018-02-21 05:46] LABS: ADD MAN DIFF? NO
[2018-02-21 05:50] LABS: WHITE BLOOD COUNT 8.4 10^3/ul (4.8-10.8)
[2018-02-21 05:50] LABS: BASOPHILS % 0.5 % (0.0-2.0); EOSINOPHILS # 0.3 10^3/ul (0.0-0.5); EOSINOPHILS % 3.7 % (0.0-7.0); HEMATOCRIT 24.6 % (42.0-52.0); HEMOGLOBIN 8.1 g/dl (14.0-18.0); LYMPHOCYTES # 0.9 10^3/ul (0.8-2.9); LYMPHOCYTES % 10.2 % (15.0-51.0); MEAN CORPUSCULAR HEMOGLOBIN 30.1 pg (29.0-33.0); MEAN CORPUSCULAR HGB CONC 32.9 g/dl (32.0-37.0); MEAN CORPUSCULAR VOLUME 91.4 fl (82.0-101.0); MEAN PLATELET VOLUME 10.7 fl (7.4-10.4); MONOCYTES % 11.3 % (0.0-11.0); NEUTROPHIL # 6.2 10^3/ul (1.6-7.5); NEUTROPHILS % 73.8 % (39.0-77.0); PLATELET COUNT 262 10^3/UL (140-415); RED BLOOD COUNT 2.69 10^6/ul (4.70-6.10); RED CELL DISTRIBUTION WIDTH 15.6 % (11.5-14.5)
[2018-02-21] MEDS: PANTOPRAZOLE (EC) 40 MG TAB PO (06:10)
[2018-02-21 06:14] LABS: ALANINE AMINOTRANSFERASE 35 IU/L (13-69); ALBUMIN 3.1 g/dl (3.3-4.9); ALKALINE PHOSPHATASE 108 IU/L (42-121); ANION GAP 15 (8-16); ASPARTATE AMINO TRANSFERASE 37 IU/L (15-46); BILIRUBIN,INDIRECT 0.7 mg/dl (0-1.1); BILIRUBIN,TOTAL 0.7 mg/dl (0.2-1.3); BLOOD UREA NITROGEN 42 mg/dl (7-20); CALCIUM 8.8 mg/dl (8.4-10.2); CARBON DIOXIDE 28 mmol/L (21-31); CHLORIDE 96 mmol/L (97-110); CREATININE 4.26 mg/dl (0.61-1.24); GLUCOSE 91 mg/dl (70-220); INR 1.17; MAGNESIUM 2.4 mg/dl (1.7-2.5); PHOSPHORUS 5.2 mg/dl (2.5-4.9); POTASSIUM 3.9 mmol/L (3.5-5.1); PROTIME 15.1 Sec (11.9-14.9); PT RATIO 1.2; SODIUM 135 mmol/L (135-144); TOTAL PROTEIN 6.2 g/dl (6.1-8.1)
[2018-02-21] MEDS: ALBUTEROL/IPRATROPIUM (NEB) 3 ML AMP HHN ×3 (07:56→20:38)
[2018-02-21] MEDS: BUDESONIDE (NEB) 0.5MG/2ML AMP HHN ×2 (08:05→20:38)
[2018-02-21] MEDS: NITROGLYCERIN 0.2 MG/HR PATCH TRANSDERM (08:22)
[2018-02-21] MEDS: DOCUSATE SODIUM 100 MG CAP PO (08:23)
[2018-02-21] MEDS: ALLOPURINOL 100 MG TAB PO ×2 (08:25→09:09)
[2018-02-21] MEDS: LEVOFLOXACIN 500MG/D5W (PMX) 100 ML IVPB (09:30)
[2018-02-21] MEDS: CLOPIDOGREL 75 MG TAB PO (14:03)
[2018-02-21] MEDS: HEPARIN 1000 UNITS/ML 10 ML INJ CATHETER (15:23)
[2018-02-21] MEDS: hydrALAzine 20 MG INJ IV (16:07)
[2018-02-21] MEDS: NIFEdipine (XL) 30 MG TAB PO (22:35)
[2018-02-22 05:40] LABS: ADD MAN DIFF? NO; BASOPHILS % 0.3 % (0.0-2.0); EOSINOPHILS # 0.2 10^3/ul (0.0-0.5); EOSINOPHILS % 2.7 % (0.0-7.0); HEMATOCRIT 26.5 % (42.0-52.0); HEMOGLOBIN 8.6 g/dl (14.0-18.0); LYMPHOCYTES # 0.6 10^3/ul (0.8-2.9); LYMPHOCYTES % 9.1 % (15.0-51.0); MEAN CORPUSCULAR HEMOGLOBIN 30.4 pg (29.0-33.0); MEAN CORPUSCULAR HGB CONC 32.5 g/dl (32.0-37.0); MEAN CORPUSCULAR VOLUME 93.6 fl (82.0-101.0); MEAN PLATELET VOLUME 10.2 fl (7.4-10.4); MONOCYTE # 0.7 10^3/ul (0.3-0.9); MONOCYTES % 11.2 % (0.0-11.0); NEUTROPHILS % 76.1 % (39.0-77.0); PLATELET COUNT 271 10^3/UL (140-415); RED BLOOD COUNT 2.83 10^6/ul (4.70-6.10); RED CELL DISTRIBUTION WIDTH 16.1 % (11.5-14.5)
[2018-02-22 05:40] LABS: WHITE BLOOD COUNT 6.6 10^3/ul (4.8-10.8)
[2018-02-22 06:09] LABS: INR 1.07; PT RATIO 1.1
[2018-02-22 06:16] LABS: ANION GAP 12 (8-16); BLOOD UREA NITROGEN 30 mg/dl (7-20); CALCIUM 8.5 mg/dl (8.4-10.2); CARBON DIOXIDE 30 mmol/L (21-31); CHLORIDE 99 mmol/L (97-110); CREATININE 3.23 mg/dl (0.61-1.24); GLUCOSE 175 mg/dl (70-220); MAGNESIUM 2.1 mg/dl (1.7-2.5); POTASSIUM 3.8 mmol/L (3.5-5.1); SODIUM 137 mmol/L (135-144)
[2018-02-22] MEDS: PANTOPRAZOLE (EC) 40 MG TAB PO (06:43)
[2018-02-22] MEDS: CLOPIDOGREL 75 MG TAB PO (09:09)
[2018-02-22] MEDS: ALLOPURINOL 100 MG TAB PO (09:10)
[2018-02-22] MEDS: DOCUSATE SODIUM 100 MG CAP PO (09:10)
[2018-02-22] MEDS: NIFEdipine (XL) 30 MG TAB PO ×2 (09:10→21:54)
[2018-02-22] MEDS: NITROGLYCERIN 0.2 MG/HR PATCH TRANSDERM (09:11)
[2018-02-22] MEDS: ALBUTEROL/IPRATROPIUM (NEB) 3 ML AMP HHN ×3 (09:20→19:43)
[2018-02-22] MEDS: BUDESONIDE (NEB) 0.5MG/2ML AMP HHN ×2 (09:30→19:43)
[2018-02-22] MEDS: HEPARIN 1000 UNITS/ML 10 ML INJ CATHETER (18:58)
[2018-02-23] MEDS: PANTOPRAZOLE (EC) 40 MG TAB PO (05:18)
[2018-02-23 05:43] LABS: ADD MAN DIFF? NO
[2018-02-23 05:50] LABS: BASOPHILS % 0.3 % (0.0-2.0); EOSINOPHILS # 0.3 10^3/ul (0.0-0.5); EOSINOPHILS % 4.1 % (0.0-7.0); HEMATOCRIT 26.6 % (42.0-52.0); HEMOGLOBIN 8.5 g/dl (14.0-18.0); LYMPHOCYTES # 0.8 10^3/ul (0.8-2.9); LYMPHOCYTES % 12.4 % (15.0-51.0); MEAN CORPUSCULAR HEMOGLOBIN 29.5 pg (29.0-33.0); MEAN CORPUSCULAR VOLUME 92.4 fl (82.0-101.0); MEAN PLATELET VOLUME 10.7 fl (7.4-10.4); MONOCYTE # 0.8 10^3/ul (0.3-0.9); MONOCYTES % 12.4 % (0.0-11.0); NEUTROPHIL # 4.5 10^3/ul (1.6-7.5); NEUTROPHILS % 70.3 % (39.0-77.0); PLATELET COUNT 266 10^3/UL (140-415); RED BLOOD COUNT 2.88 10^6/ul (4.70-6.10); RED CELL DISTRIBUTION WIDTH 15.7 % (11.5-14.5)
[2018-02-23 05:50] LABS: WHITE BLOOD COUNT 6.4 10^3/ul (4.8-10.8)
[2018-02-23 06:15] LABS: ANION GAP 11 (8-16); BLOOD UREA NITROGEN 27 mg/dl (7-20); CALCIUM 8.4 mg/dl (8.4-10.2); CARBON DIOXIDE 30 mmol/L (21-31); CHLORIDE 100 mmol/L (97-110); CREATININE 2.66 mg/dl (0.61-1.24); GLUCOSE 99 mg/dl (70-220); POTASSIUM 3.9 mmol/L (3.5-5.1); SODIUM 137 mmol/L (135-144)
[2018-02-23] MEDS: ALLOPURINOL 100 MG TAB PO (08:14)
[2018-02-23] MEDS: CLOPIDOGREL 75 MG TAB PO (08:14)
[2018-02-23] MEDS: NITROGLYCERIN 0.2 MG/HR PATCH TRANSDERM (08:15)
[2018-02-23] MEDS: DOCUSATE SODIUM 100 MG CAP PO (08:15)
[2018-02-23] MEDS: NIFEdipine (XL) 30 MG TAB PO ×2 (08:15→21:00)
[2018-02-23] MEDS: LEVOFLOXACIN 500 MG TAB PO (08:15)
[2018-02-23] MEDS: BUDESONIDE (NEB) 0.5MG/2ML AMP HHN ×2 (09:22→19:37)
[2018-02-23] MEDS: ALBUTEROL/IPRATROPIUM (NEB) 3 ML AMP HHN ×3 (09:22→19:37)
[2018-02-23] MEDS: hydrALAzine 20 MG INJ IV (18:33)
[2018-02-23] MEDS: APIXABAN 5 MG TABLET PO (21:37)
[2018-02-24] MEDS: HEPARIN 1000 UNITS/ML 10 ML INJ CATHETER (00:53)
[2018-02-24] MEDS: HYDROCODONE/APAP (5/325) TAB PO ×2 (01:13→12:03)
[2018-02-24] MEDS: PANTOPRAZOLE (EC) 40 MG TAB PO (06:00)
[2018-02-24 06:15] LABS: ADD MAN DIFF? NO
[2018-02-24 06:17] LABS: WHITE BLOOD COUNT 5.1 10^3/ul (4.8-10.8)
[2018-02-24 06:17] LABS: BASOPHILS % 0.6 % (0.0-2.0); EOSINOPHILS # 0.2 10^3/ul (0.0-0.5); EOSINOPHILS % 4.7 % (0.0-7.0); HEMATOCRIT 27.9 % (42.0-52.0); HEMOGLOBIN 8.8 g/dl (14.0-18.0); LYMPHOCYTES # 0.9 10^3/ul (0.8-2.9); LYMPHOCYTES % 18.1 % (15.0-51.0); MEAN CORPUSCULAR HEMOGLOBIN 28.9 pg (29.0-33.0); MEAN CORPUSCULAR HGB CONC 31.5 g/dl (32.0-37.0); MEAN CORPUSCULAR VOLUME 91.8 fl (82.0-101.0); MEAN PLATELET VOLUME 10.6 fl (7.4-10.4); MONOCYTE # 0.7 10^3/ul (0.3-0.9); NEUTROPHIL # 3.2 10^3/ul (1.6-7.5); NEUTROPHILS % 63.2 % (39.0-77.0); PLATELET COUNT 276 10^3/UL (140-415); RED BLOOD COUNT 3.04 10^6/ul (4.70-6.10); RED CELL DISTRIBUTION WIDTH 15.7 % (11.5-14.5)
[2018-02-24 06:39] LABS: ANION GAP 10 (8-16); BLOOD UREA NITROGEN 18 mg/dl (7-20); CALCIUM 8.2 mg/dl (8.4-10.2); CARBON DIOXIDE 31 mmol/L (21-31); CHLORIDE 99 mmol/L (97-110); CREATININE 2.35 mg/dl (0.61-1.24); GLUCOSE 87 mg/dl (70-220); POTASSIUM 3.9 mmol/L (3.5-5.1); SODIUM 136 mmol/L (135-144)
[2018-02-24] MEDS: BUDESONIDE (NEB) 0.5MG/2ML AMP HHN ×2 (08:15→19:32)
[2018-02-24] MEDS: ALBUTEROL/IPRATROPIUM (NEB) 3 ML AMP HHN ×5 (08:15→23:51)
[2018-02-24] MEDS: DOCUSATE SODIUM 100 MG CAP PO (08:27)
[2018-02-24] MEDS: ALLOPURINOL 100 MG TAB PO (08:27)
[2018-02-24] MEDS: CLOPIDOGREL 75 MG TAB PO ×2 (08:27→14:28)
[2018-02-24] MEDS: NIFEdipine (XL) 30 MG TAB PO ×2 (09:16→20:49)
[2018-02-24] MEDS: NITROGLYCERIN 0.2 MG/HR PATCH TRANSDERM (09:17)
[2018-02-24] MEDS ORDERED: LIDOCAINE 1% (MDV) 20 ML INJ (09:59)
[2018-02-24] MEDS ORDERED: IODIXANOL LOCM 100 ML BTL (09:59)
[2018-02-24] MEDS ORDERED: HEPARIN 1000 UNITS/NS (A-LINE) 1,000 ML (09:59)
[2018-02-24] MEDS: LACTOBACILLUS RHAMNOSUS CAP PO (20:48)
[2018-02-25] MEDS: HYDROCODONE/APAP (5/325) TAB PO ×2 (06:04→21:35)
[2018-02-25] MEDS: BUDESONIDE (NEB) 0.5MG/2ML AMP HHN ×2 (08:18→23:15)
[2018-02-25] MEDS: ALBUTEROL/IPRATROPIUM (NEB) 3 ML AMP HHN ×3 (08:18→23:15)
[2018-02-25] MEDS: CLOPIDOGREL 75 MG TAB PO (08:30)
[2018-02-25] MEDS: FAMOTIDINE 20 MG TAB PO (08:30)
[2018-02-25] MEDS: ALLOPURINOL 100 MG TAB PO (08:30)
[2018-02-25] MEDS: MAGNESIUM HYDROXIDE 30ML CUP PO (08:30)
[2018-02-25] MEDS: LACTOBACILLUS RHAMNOSUS CAP PO ×2 (08:30→21:28)
[2018-02-25] MEDS: DOCUSATE SODIUM 100 MG CAP PO (08:30)
[2018-02-25] MEDS: NIFEdipine (XL) 30 MG TAB PO ×2 (08:36→22:53)
[2018-02-25] MEDS: NITROGLYCERIN 0.2 MG/HR PATCH TRANSDERM (08:38)
[2018-02-26 02:17] LABS: COLLECTION PERIOD 24 hrs
[2018-02-26 02:42] LABS: COLLECTION PERIOD 24 hrs; CREATININE CLEARANCE 9.1 mls/min (84.0-162.0); CREATININE,URINE RANDOM 103.04 mg/dl (20-370); SCRET 2.35 mg/dl (0.61-1.24); VOLUME 300 ml/24hrs
[2018-02-26 03:04] LABS: VOLUME 300 mls
[2018-02-26] MEDS: ALBUTEROL/IPRATROPIUM (NEB) 3 ML AMP HHN ×2 (08:11→15:25)
[2018-02-26] MEDS: BUDESONIDE (NEB) 0.5MG/2ML AMP HHN ×2 (08:15→19:46)
[2018-02-26] MEDS: DOCUSATE SODIUM 100 MG CAP PO (08:57)
[2018-02-26] MEDS: CLOPIDOGREL 75 MG TAB PO (08:57)
[2018-02-26] MEDS: FAMOTIDINE 20 MG TAB PO (08:57)
[2018-02-26] MEDS: HYDROCODONE/APAP (5/325) TAB PO ×2 (08:58→20:43)
[2018-02-26] MEDS: MAGNESIUM HYDROXIDE 30ML CUP PO (09:04)
[2018-02-26] MEDS: ALLOPURINOL 100 MG TAB PO (09:05)
[2018-02-26] MEDS: LACTOBACILLUS RHAMNOSUS CAP PO ×2 (09:05→20:43)
[2018-02-26] MEDS: NIFEdipine (XL) 30 MG TAB PO ×2 (09:07→20:43)
[2018-02-26] MEDS: NITROGLYCERIN 0.2 MG/HR PATCH TRANSDERM (09:09)
[2018-02-26] MEDS ORDERED: TAMSULOSIN (SR) 0.4 MG CAP PO (21:00)
[2018-02-27] MEDS: ALBUTEROL/IPRATROPIUM (NEB) 3 ML AMP HHN ×3 (00:15→16:12)
[2018-02-27] MEDS: HYDROCODONE/APAP (5/325) TAB PO ×2 (05:36→20:16)
[2018-02-27 07:07] LABS: ADD MAN DIFF? NO
[2018-02-27 07:12] LABS: WHITE BLOOD COUNT 5.6 10^3/ul (4.8-10.8)
[2018-02-27 07:12] LABS: BASOPHIL # 0.1 10^3/ul (0.0-0.1); BASOPHILS % 0.9 % (0.0-2.0); EOSINOPHILS # 0.3 10^3/ul (0.0-0.5); EOSINOPHILS % 4.4 % (0.0-7.0); HEMATOCRIT 28.5 % (42.0-52.0); LYMPHOCYTES # 0.8 10^3/ul (0.8-2.9); LYMPHOCYTES % 14.9 % (15.0-51.0); MEAN CORPUSCULAR HEMOGLOBIN 28.9 pg (29.0-33.0); MEAN CORPUSCULAR HGB CONC 31.6 g/dl (32.0-37.0); MEAN CORPUSCULAR VOLUME 91.6 fl (82.0-101.0); MEAN PLATELET VOLUME 11.1 fl (7.4-10.4); MONOCYTE # 0.6 10^3/ul (0.3-0.9); MONOCYTES % 11.2 % (0.0-11.0); NEUTROPHIL # 3.8 10^3/ul (1.6-7.5); NEUTROPHILS % 68.1 % (39.0-77.0); PLATELET COUNT 263 10^3/UL (140-415); RED BLOOD COUNT 3.11 10^6/ul (4.70-6.10)
[2018-02-27] MEDS: BUDESONIDE (NEB) 0.5MG/2ML AMP HHN ×2 (07:13→19:32)
[2018-02-27 07:51] LABS: ALANINE AMINOTRANSFERASE 46 IU/L (13-69); ALBUMIN 2.8 g/dl (3.3-4.9); ALKALINE PHOSPHATASE 141 IU/L (42-121); ANION GAP 13 (8-16); ASPARTATE AMINO TRANSFERASE 42 IU/L (15-46); BILIRUBIN,INDIRECT 0.4 mg/dl (0-1.1); BILIRUBIN,TOTAL 0.4 mg/dl (0.2-1.3); BLOOD UREA NITROGEN 38 mg/dl (7-20); CALCIUM 8.7 mg/dl (8.4-10.2); CARBON DIOXIDE 31 mmol/L (21-31); CHLORIDE 94 mmol/L (97-110); CREATININE 4.98 mg/dl (0.61-1.24); GLUCOSE 100 mg/dl (70-220); POTASSIUM 4.5 mmol/L (3.5-5.1); SODIUM 133 mmol/L (135-144); TOTAL PROTEIN 5.9 g/dl (6.1-8.1)
[2018-02-27] MEDS: FAMOTIDINE 20 MG TAB PO (08:15)
[2018-02-27] MEDS: ASPIRIN 81 MG TAB PO (08:15)
[2018-02-27] MEDS: DOCUSATE SODIUM 100 MG CAP PO (08:17)
[2018-02-27] MEDS: CLOPIDOGREL 75 MG TAB PO (08:17)
[2018-02-27] MEDS: ALLOPURINOL 100 MG TAB PO (08:17)
[2018-02-27] MEDS: LACTOBACILLUS RHAMNOSUS CAP PO ×2 (08:17→20:14)
[2018-02-27] MEDS: NITROGLYCERIN 0.2 MG/HR PATCH TRANSDERM (08:18)
[2018-02-27] MEDS: NIFEdipine (XL) 30 MG TAB PO ×2 (08:19→20:15)
[2018-02-27] MEDS: HEPARIN 1000 UNITS/ML 10 ML INJ CATHETER (14:49)
[2018-02-27] MEDS: ATORVASTATIN 20 MG TAB PO (20:14)
[2018-02-27] MEDS: APIXABAN 5 MG TABLET PO (20:15)
[2018-02-27] MEDS: ALPRAZOLAM 0.25 MG TAB PO (20:16)
[2018-02-27] MEDS: morphine LIQ (10 MG/5 ML) CUP PO (21:34)
[2018-02-28] MEDS: ALBUTEROL/IPRATROPIUM (NEB) 3 ML AMP HHN ×3 (00:25→16:25)
[2018-02-28 05:58] LABS: ADD MAN DIFF? NO
[2018-02-28 06:08] LABS: BASOPHILS % 0.8 % (0.0-2.0); EOSINOPHILS # 0.3 10^3/ul (0.0-0.5); EOSINOPHILS % 5.2 % (0.0-7.0); HEMATOCRIT 29.4 % (42.0-52.0); HEMOGLOBIN 9.2 g/dl (14.0-18.0); LYMPHOCYTES # 1.1 10^3/ul (0.8-2.9); LYMPHOCYTES % 21.5 % (15.0-51.0); MEAN CORPUSCULAR HGB CONC 31.3 g/dl (32.0-37.0); MEAN CORPUSCULAR VOLUME 92.7 fl (82.0-101.0); MEAN PLATELET VOLUME 10.9 fl (7.4-10.4); MONOCYTE # 0.7 10^3/ul (0.3-0.9); MONOCYTES % 12.7 % (0.0-11.0); NEUTROPHIL # 3.1 10^3/ul (1.6-7.5); NEUTROPHILS % 59.4 % (39.0-77.0); PLATELET COUNT 269 10^3/UL (140-415); RED BLOOD COUNT 3.17 10^6/ul (4.70-6.10); RED CELL DISTRIBUTION WIDTH 15.2 % (11.5-14.5)
[2018-02-28 06:08] LABS: WHITE BLOOD COUNT 5.2 10^3/ul (4.8-10.8)
[2018-02-28 07:18] LABS: ANION GAP 12 (8-16); BLOOD UREA NITROGEN 19 mg/dl (7-20); CALCIUM 8.6 mg/dl (8.4-10.2); CARBON DIOXIDE 30 mmol/L (21-31); CHLORIDE 100 mmol/L (97-110); GLUCOSE 89 mg/dl (70-220); MAGNESIUM 2.5 mg/dl (1.7-2.5); PHOSPHORUS 3.3 mg/dl (2.5-4.9); SODIUM 138 mmol/L (135-144)
[2018-02-28] MEDS: BUDESONIDE (NEB) 0.5MG/2ML AMP HHN ×2 (07:52→19:33)
[2018-02-28] MEDS: CLOPIDOGREL 75 MG TAB PO (08:30)
[2018-02-28] MEDS: NITROGLYCERIN 0.2 MG/HR PATCH TRANSDERM (08:30)
[2018-02-28] MEDS: APIXABAN 5 MG TABLET PO ×2 (08:31→20:39)
[2018-02-28] MEDS: LACTOBACILLUS RHAMNOSUS CAP PO ×3 (08:31→20:38)
[2018-02-28] MEDS: NIFEdipine (XL) 30 MG TAB PO ×2 (08:31→20:40)
[2018-02-28] MEDS: FAMOTIDINE 20 MG TAB PO (08:32)
[2018-02-28] MEDS: DOCUSATE SODIUM 100 MG CAP PO (08:32)
[2018-02-28] MEDS: ALLOPURINOL 100 MG TAB PO (08:32)
[2018-02-28] MEDS: HYDROCODONE/APAP (5/325) TAB PO (16:28)
[2018-02-28] MEDS: MAGNESIUM HYDROXIDE 30ML CUP PO (16:28)
[2018-02-28] MEDS: ATORVASTATIN 20 MG TAB PO (20:39)
[2018-03-01] MEDS: ALBUTEROL/IPRATROPIUM (NEB) 3 ML AMP HHN ×4 (00:24→23:27)
[2018-03-01] MEDS: LACTOBACILLUS RHAMNOSUS CAP PO ×2 (08:36→20:40)
[2018-03-01] MEDS: FAMOTIDINE 20 MG TAB PO (08:37)
[2018-03-01] MEDS: CLOPIDOGREL 75 MG TAB PO (08:37)
[2018-03-01] MEDS: APIXABAN 5 MG TABLET PO ×2 (08:37→20:41)
[2018-03-01] MEDS: DOCUSATE SODIUM 100 MG CAP PO (08:37)
[2018-03-01] MEDS: ALLOPURINOL 100 MG TAB PO (08:37)
[2018-03-01] MEDS: NIFEdipine (XL) 30 MG TAB PO ×2 (08:38→20:41)
[2018-03-01] MEDS: BUDESONIDE (NEB) 0.5MG/2ML AMP HHN ×2 (08:39→19:57)
[2018-03-01] MEDS: NITROGLYCERIN 0.2 MG/HR PATCH TRANSDERM (08:50)
[2018-03-01] MEDS: HEPARIN 1000 UNITS/ML 10 ML INJ CATHETER (10:07)
[2018-03-01] MEDS: HYDROCODONE/APAP (5/325) TAB PO (18:24)
[2018-03-01] MEDS: ATORVASTATIN 20 MG TAB PO (20:40)
[2018-03-01] MEDS: morphine LIQ (10 MG/5 ML) CUP PO (22:23)
[2018-03-02 07:14] LABS: ADD MAN DIFF? NO
[2018-03-02 07:18] LABS: BASOPHIL # 0.1 10^3/ul (0.0-0.1); BASOPHILS % 1.1 % (0.0-2.0); EOSINOPHILS # 0.3 10^3/ul (0.0-0.5); EOSINOPHILS % 5.5 % (0.0-7.0); HEMATOCRIT 34.9 % (42.0-52.0); LYMPHOCYTES # 1.4 10^3/ul (0.8-2.9); LYMPHOCYTES % 24.6 % (15.0-51.0); MEAN CORPUSCULAR HEMOGLOBIN 28.9 pg (29.0-33.0); MEAN CORPUSCULAR HGB CONC 31.5 g/dl (32.0-37.0); MEAN CORPUSCULAR VOLUME 91.6 fl (82.0-101.0); MEAN PLATELET VOLUME 10.3 fl (7.4-10.4); MONOCYTE # 0.6 10^3/ul (0.3-0.9); MONOCYTES % 11.2 % (0.0-11.0); NEUTROPHIL # 3.2 10^3/ul (1.6-7.5); NEUTROPHILS % 57.2 % (39.0-77.0); PLATELET COUNT 311 10^3/UL (140-415); RED BLOOD COUNT 3.81 10^6/ul (4.70-6.10); RED CELL DISTRIBUTION WIDTH 14.7 % (11.5-14.5)
[2018-03-02 07:18] LABS: WHITE BLOOD COUNT 5.6 10^3/ul (4.8-10.8)
[2018-03-02] MEDS: ALBUTEROL/IPRATROPIUM (NEB) 3 ML AMP HHN ×2 (07:24→16:08)
[2018-03-02] MEDS: BUDESONIDE (NEB) 0.5MG/2ML AMP HHN (07:24)
[2018-03-02 07:40] LABS: ANION GAP 13 (8-16); BLOOD UREA NITROGEN 21 mg/dl (7-20); CARBON DIOXIDE 30 mmol/L (21-31); CHLORIDE 98 mmol/L (97-110); CREATININE 3.85 mg/dl (0.61-1.24); GLUCOSE 98 mg/dl (70-220); MAGNESIUM 2.5 mg/dl (1.7-2.5); PHOSPHORUS 4.3 mg/dl (2.5-4.9); POTASSIUM 4.5 mmol/L (3.5-5.1); SODIUM 136 mmol/L (135-144)
[2018-03-02] MEDS: NIFEdipine (XL) 30 MG TAB PO (08:35)
[2018-03-02] MEDS: LACTOBACILLUS RHAMNOSUS CAP PO (08:35)
[2018-03-02] MEDS: ALLOPURINOL 100 MG TAB PO (08:35)
[2018-03-02] MEDS: DOCUSATE SODIUM 100 MG CAP PO (08:35)
[2018-03-02] MEDS: APIXABAN 5 MG TABLET PO (08:35)
[2018-03-02] MEDS: CLOPIDOGREL 75 MG TAB PO (08:35)
[2018-03-02] MEDS: NITROGLYCERIN 0.2 MG/HR PATCH TRANSDERM ×3 (08:35→13:38)
[2018-03-02] MEDS: FAMOTIDINE 20 MG TAB PO (08:35)
== END 2018-03-02 17:00 | DRG 299 ==
LOC: 2NE 02-25 17:20 → E/R 12:28 → 6WM 02-10 19:58 → E/R 19:38 → 6WM 13:52
PROC: 02H633Z Insertion of Infusion Device into Right Atrium, Percutaneous Approach (ICD-10-PCS; 2018-02-13 08:00)
PROC: B543ZZA Ultrasonography of Right Jugular Veins, Guidance (ICD-10-PCS; 2018-02-13 08:00)
PROC: B410YZZ Fluoroscopy of Abdominal Aorta using Other Contrast (ICD-10-PCS; principal; 2018-02-13 08:25)
PROC: B41FYZZ Fluoroscopy of Right Lower Extremity Arteries using Other Contrast (ICD-10-PCS; 2018-02-13 08:25)
PROC: 5A1D70Z Performance of Urinary Filtration, Intermittent, Less than 6 Hours Per Day (ICD-10-PCS; 2018-02-13 08:25)
PROC: 30243N1 Transfusion of Nonautologous Red Blood Cells into Central Vein, Percutaneous Approach (ICD-10-PCS; 2018-02-13 08:25)
DX: E11.52 Type 2 diabetes mellitus with diabetic peripheral angiopathy with gangrene (principal); N17.0 Acute kidney failure with tubular necrosis; N18.6 End stage renal disease; J96.01 Acute respiratory failure with hypoxia; G93.40 Encephalopathy, unspecified; I96 Gangrene, not elsewhere classified; I16.1 Hypertensive emergency; N28.0 Ischemia and infarction of kidney; E87.2 Acidosis; I12.0 Hypertensive chronic kidney disease with stage 5 chronic kidney disease or end stage renal disease; E11.22 Type 2 diabetes mellitus with diabetic chronic kidney disease; I25.10 Atherosclerotic heart disease of native coronary artery without angina pectoris; I71.4 Abdominal aortic aneurysm, without rupture; I16.0 Hypertensive urgency; I70.221 Atherosclerosis of native arteries of extremities with rest pain, right leg; D63.1 Anemia in chronic kidney disease; I25.2 Old myocardial infarction; R33.9 Retention of urine, unspecified; R62.7 Adult failure to thrive; E78.00 Pure hypercholesterolemia, unspecified; R31.0 Gross hematuria; Z95.5 Presence of coronary angioplasty implant and graft; Z79.82 Long term (current) use of aspirin; Z79.01 Long term (current) use of anticoagulants; Z86.718 Personal history of other venous thrombosis and embolism; W19.XXXA Unspecified fall, initial encounter; Z86.73 Personal history of transient ischemic attack (TIA), and cerebral infarction without residual deficits; Y92.239 Unspecified place in hospital as the place of occurrence of the external cause
CPT/HCPCS: 36246; 36415; 36430; 70450; 71045; 73562; 73630; 75630; 75710; 76770; 76775; 80048; 80053; 80069; 80202; 81001; 81003; 82550; 82570; 82575; 82962; 83735; 84100; 84133; 84155; 84156; 84300; 84443; 84484; 84560; 85014; 85018; 85025; 85610; 85730; 86644; 86703; 86704; 86709; 86803; 86850; 86900; 86901; 86920; 87081; 87340; 89190; 90935; 93005; 93306; 93922; 93970; 94640; 94664; 96372; 97110; 97116; 97161; 97166; 97530; 97535; 99285-25

== ENCOUNTER 2018-03-31 05:48 | Inpatient (IN) | payer OTHER ==
[~2018-03-31 05:48] MED LIST: CEFAZOLIN 2 GM/50 ML (PMX) 50 ML IVPB
[2018-03-31 06:33] LABS: ADD MAN DIFF? NO
[2018-03-31 06:38] LABS: BASOPHILS % 0.6 % (0.0-2.0); EOSINOPHILS # 0.3 10^3/ul (0.0-0.5); EOSINOPHILS % 4.5 % (0.0-7.0); HEMATOCRIT 36.4 % (42.0-52.0); HEMOGLOBIN 11.5 g/dl (14.0-18.0); LYMPHOCYTES # 1.6 10^3/ul (0.8-2.9); LYMPHOCYTES % 25.6 % (15.0-51.0); MEAN CORPUSCULAR HEMOGLOBIN 29.4 pg (29.0-33.0); MEAN CORPUSCULAR HGB CONC 31.6 g/dl (32.0-37.0); MEAN CORPUSCULAR VOLUME 93.1 fl (82.0-101.0); MEAN PLATELET VOLUME 10.2 fl (7.4-10.4); MONOCYTE # 0.7 10^3/ul (0.3-0.9); MONOCYTES % 11.6 % (0.0-11.0); NEUTROPHIL # 3.7 10^3/ul (1.6-7.5); NEUTROPHILS % 57.2 % (39.0-77.0); PLATELET COUNT 237 10^3/UL (140-415); RED BLOOD COUNT 3.91 10^6/ul (4.70-6.10); RED CELL DISTRIBUTION WIDTH 17.4 % (11.5-14.5)
[2018-03-31 06:38] LABS: WHITE BLOOD COUNT 6.4 10^3/ul (4.8-10.8)
[2018-03-31 06:56] LABS: INR 1.05; PROTIME 13.8 Sec (11.9-14.9); PT RATIO 1.1
[2018-03-31 06:57] LABS: PARTIAL THROMBOPLASTIN TIME 34.8 Sec (23.0-35.0)
[2018-03-31] MEDS: CEFAZOLIN 2 GM/50 ML (PMX) 50 ML IVPB (07:00)
[2018-03-31 07:12] LABS: ANION GAP 8 (5-13); BLOOD UREA NITROGEN 18 mg/dl (7-20); CALCIUM 8.8 mg/dl (8.4-10.2); CARBON DIOXIDE 30 mmol/L (21-31); CHLORIDE 101 mmol/L (97-110); CREATININE 3.15 mg/dl (0.61-1.24); GLUCOSE 86 mg/dl (70-220); POTASSIUM 4.3 mmol/L (3.5-5.1); SODIUM 139 mmol/L (135-144)
[2018-03-31] MEDS ORDERED: SODIUM CL BACTERIOSTATIC 30 ML INJ (07:39)
[2018-03-31] MEDS ORDERED: PAPAVERINE 60 MG INJ (07:40)
[2018-03-31] MEDS ORDERED: ROCURONIUM 50 MG INJ ×2 (07:53→10:10)
[2018-03-31] MEDS ORDERED: SUCCINYLCHOLINE CHLORIDE 100 MG/5 ML SYG IV ×2 (07:53→10:10)
[2018-03-31] MEDS ORDERED: PROPOFOL 20 ML ×2 (07:53→10:10)
[2018-03-31] MEDS ORDERED: LIDOCAINE 2% (SDV) 5 ML INJ (07:53)
[2018-03-31] MEDS ORDERED: GLYCOPYRROLATE 0.4 MG INJ ×2 (07:53→10:29)
[2018-03-31] MEDS ORDERED: NEOSTIGMINE 3 MG/3 ML SYRINGE (07:53)
[2018-03-31] MEDS: HEPARIN 1000 UNITS/ML 10 ML INJ (08:56)
[2018-03-31] MEDS: POLYMYXIN/BACITRACIN 1L IRRIG (08:57)
[2018-03-31] MEDS: GELATIN SIZE 100 SPONGE (09:03)
[2018-03-31] MEDS: THROMBIN 5000 UNIT VIAL (09:03)
[2018-03-31] MEDS ORDERED: HEPARIN 1000 UNITS/ML 10 ML INJ (09:29)
[2018-03-31] MEDS ORDERED: FENTAnyl 50 MCG/ML VIAL ×2 (09:52→10:43)
[2018-03-31] MEDS ORDERED: CEFAZOLIN 1 GM INJ (10:10)
[2018-03-31] MEDS ORDERED: LIDOCAINE 100 MG SYRINGE (10:10)
[2018-03-31] MEDS ORDERED: SUGAMMADEX SODIUM 200 MG/2 ML VIAL IV (10:10)
[2018-03-31] MEDS ORDERED: OXYCODONE/ACETAMINOPHEN (5/325) TAB PO (10:30)
[2018-03-31] MEDS ORDERED: MEPERIDINE 25 MG INJ IV (10:30)
[2018-03-31] MEDS ORDERED: FENTAnyl 50 MCG/ML VIAL IV ×2 (10:30)
[2018-03-31] MEDS ORDERED: ONDANSETRON 4 MG INJ (10:30)
[2018-03-31] MEDS ORDERED: EPHEDrine SULFATE 50 MG/5 ML SYG IV (10:30)
[2018-03-31] MEDS ORDERED: HYDROmorphONE 1 MG/5 ML IV SYRINGE IV ×3 (10:30)
[2018-03-31] MEDS ORDERED: DIPHENHYDRAMINE 50 MG INJ IV (10:30)
[2018-03-31] MEDS ORDERED: METOCLOPRAMIDE 10 MG INJ IV (10:30)
[2018-03-31] MEDS ORDERED: LABETALOL HCL 20MG INJ IV (10:30)
[2018-03-31] MEDS ORDERED: ONDANSETRON 4 MG INJ IV (10:30)
[2018-03-31] MEDS ORDERED: MIDAZOLAM 1 MG/ML 2 ML INJ IV (10:30)
[2018-03-31] MEDS: FENTAnyl 50 MCG/ML VIAL IV (11:24)
[2018-03-31] MEDS: hydrALAzine 20 MG INJ IV (11:29)
[2018-03-31] MEDS: ASPIRIN 81 MG TAB PO (11:38)
[2018-03-31] MEDS ORDERED: morphine SULFATE/PF (10 MG/10 ML) INJ (14:40)
[2018-03-31] MEDS: OXYCODONE/ACETAMINOPHEN (5/325) TAB PO (15:07)
[2018-03-31] MEDS ORDERED: SODIUM CHLORIDE 0.9% 1L BAG IV (19:00)
[2018-03-31] MEDS ORDERED: HYDROCODONE/APAP (10/325) TAB PO (20:00)
[2018-03-31] MEDS: ACETAMINOPHEN 500 MG TAB PO (20:17)
[2018-03-31] MEDS: ATORVASTATIN 20 MG TAB PO (20:31)
[2018-03-31 23:07] LABS: HEPATITIS B SURFACE ANTIGEN NEGATIVE (NEGATIVE)
[2018-03-31 23:25] LABS: HEPATITIS B SURFACE ANTIBODY NEGATIVE (NEGATIVE)
[2018-04-01] MEDS: ASPIRIN 81 MG TAB PO (08:04)
[2018-04-01] MEDS: ALLOPURINOL 100 MG TAB PO (08:05)
[2018-04-01] MEDS: CLOPIDOGREL 75 MG TAB PO (08:05)
[2018-04-01 08:34] LABS: ADD MAN DIFF? NO
[2018-04-01 08:36] LABS: WHITE BLOOD COUNT 7.6 10^3/ul (4.8-10.8)
[2018-04-01 08:36] LABS: BASOPHILS % 0.4 % (0.0-2.0); EOSINOPHILS # 0.2 10^3/ul (0.0-0.5); HEMATOCRIT 30.3 % (42.0-52.0); HEMOGLOBIN 9.5 g/dl (14.0-18.0); LYMPHOCYTES # 1.1 10^3/ul (0.8-2.9); LYMPHOCYTES % 14.7 % (15.0-51.0); MEAN CORPUSCULAR HEMOGLOBIN 29.2 pg (29.0-33.0); MEAN CORPUSCULAR HGB CONC 31.4 g/dl (32.0-37.0); MEAN CORPUSCULAR VOLUME 93.2 fl (82.0-101.0); MEAN PLATELET VOLUME 9.9 fl (7.4-10.4); MONOCYTE # 0.9 10^3/ul (0.3-0.9); MONOCYTES % 11.3 % (0.0-11.0); NEUTROPHIL # 5.4 10^3/ul (1.6-7.5); NEUTROPHILS % 71.2 % (39.0-77.0); PLATELET COUNT 226 10^3/UL (140-415); RED BLOOD COUNT 3.25 10^6/ul (4.70-6.10); RED CELL DISTRIBUTION WIDTH 17.5 % (11.5-14.5)
[2018-04-01 09:01] LABS: ANION GAP 11 (5-13); BLOOD UREA NITROGEN 32 mg/dl (7-20); CARBON DIOXIDE 27 mmol/L (21-31); CHLORIDE 97 mmol/L (97-110); CREATININE 4.15 mg/dl (0.61-1.24); GLUCOSE 127 mg/dl (70-220); POTASSIUM 5.1 mmol/L (3.5-5.1); SODIUM 135 mmol/L (135-144)
[2018-04-01] MEDS: hydrALAzine 20 MG INJ IV ×2 (09:55→18:38)
[2018-04-01] MEDS ORDERED: OXYCODONE/ACETAMINOPHEN (5/325) TAB PO ×2 (11:30)
[2018-04-01] MEDS ORDERED: ONDANSETRON 4 MG INJ IV (11:30)
[2018-04-01] MEDS: HEPARIN 1000 UNITS/ML 10 ML INJ CATHETER (18:14)
[2018-04-01] MEDS: ATORVASTATIN 20 MG TAB PO (20:39)
[2018-04-01] MEDS: NIFEdipine (XL) 30 MG TAB PO (20:40)
[2018-04-01] MEDS: HYDROCODONE/APAP (10/325) TAB PO (20:40)
[2018-04-01] MEDS ORDERED: NON-FORMULARY/PATIENT OWN MED (Carvedilol* 25 MG) PO (21:00)
[2018-04-01] MEDS ORDERED: ATORVASTATIN CALCIUM 20 MG PO (21:00)
[2018-04-01] MEDS ORDERED: NIFEDIPINE 30 MG PO (21:00)
[2018-04-02] MEDS: HYDROCODONE/APAP (10/325) TAB PO (05:51)
[2018-04-02 06:28] LABS: ADD MAN DIFF? NO
[2018-04-02 06:32] LABS: WHITE BLOOD COUNT 9.2 10^3/ul (4.8-10.8)
[2018-04-02 06:32] LABS: BASOPHILS % 0.3 % (0.0-2.0); EOSINOPHILS # 0.2 10^3/ul (0.0-0.5); EOSINOPHILS % 1.7 % (0.0-7.0); HEMATOCRIT 29.2 % (42.0-52.0); HEMOGLOBIN 9.4 g/dl (14.0-18.0); LYMPHOCYTES # 1.6 10^3/ul (0.8-2.9); LYMPHOCYTES % 17.9 % (15.0-51.0); MEAN CORPUSCULAR HEMOGLOBIN 29.5 pg (29.0-33.0); MEAN CORPUSCULAR HGB CONC 32.2 g/dl (32.0-37.0); MEAN CORPUSCULAR VOLUME 91.5 fl (82.0-101.0); MEAN PLATELET VOLUME 10.9 fl (7.4-10.4); MONOCYTE # 1.3 10^3/ul (0.3-0.9); MONOCYTES % 14.4 % (0.0-11.0); NEUTROPHILS % 65.4 % (39.0-77.0); PLATELET COUNT 237 10^3/UL (140-415); RED BLOOD COUNT 3.19 10^6/ul (4.70-6.10); RED CELL DISTRIBUTION WIDTH 17.1 % (11.5-14.5)
[2018-04-02 07:00] LABS: ANION GAP 11 (5-13); BLOOD UREA NITROGEN 27 mg/dl (7-20); CALCIUM 9.2 mg/dl (8.4-10.2); CARBON DIOXIDE 28 mmol/L (21-31); CHLORIDE 96 mmol/L (97-110); CREATININE 3.96 mg/dl (0.61-1.24); GLUCOSE 99 mg/dl (70-220); MAGNESIUM 1.9 mg/dl (1.7-2.5); PHOSPHORUS 5.1 mg/dl (2.5-4.9); POTASSIUM 4.3 mmol/L (3.5-5.1); SODIUM 135 mmol/L (135-144)
[2018-04-02] MEDS: NIFEdipine (XL) 30 MG TAB PO ×2 (08:27→20:50)
[2018-04-02] MEDS: ASPIRIN 81 MG TAB PO (08:27)
[2018-04-02] MEDS: CLOPIDOGREL 75 MG TAB PO (08:28)
[2018-04-02] MEDS: ALLOPURINOL 100 MG TAB PO (08:28)
[2018-04-02] MEDS ORDERED: ALLOPURINOL 100 MG TAB PO (09:00)
[2018-04-02] MEDS ORDERED: NON-FORMULARY/PATIENT OWN MED (Clopidogrel Bisulfate (Clopidogrel) 75 MG) PO (09:00)
[2018-04-02 11:04] LABS: ADD MAN DIFF? NO
[2018-04-02 11:05] LABS: BASOPHILS % 0.5 % (0.0-2.0); EOSINOPHILS # 0.2 10^3/ul (0.0-0.5); EOSINOPHILS % 2.3 % (0.0-7.0); HEMATOCRIT 28.1 % (42.0-52.0); LYMPHOCYTES # 1.3 10^3/ul (0.8-2.9); LYMPHOCYTES % 16.4 % (15.0-51.0); MEAN CORPUSCULAR HEMOGLOBIN 29.4 pg (29.0-33.0); MEAN CORPUSCULAR VOLUME 91.8 fl (82.0-101.0); MONOCYTE # 1.1 10^3/ul (0.3-0.9); MONOCYTES % 13.8 % (0.0-11.0); NEUTROPHIL # 5.5 10^3/ul (1.6-7.5); NEUTROPHILS % 66.6 % (39.0-77.0); PLATELET COUNT 228 10^3/UL (140-415); RED BLOOD COUNT 3.06 10^6/ul (4.70-6.10); RED CELL DISTRIBUTION WIDTH 16.9 % (11.5-14.5)
[2018-04-02 11:05] LABS: WHITE BLOOD COUNT 8.2 10^3/ul (4.8-10.8)
[2018-04-02] MEDS: ATORVASTATIN 20 MG TAB PO (20:50)
[2018-04-03 05:45] LABS: ADD MAN DIFF? NO
[2018-04-03 05:58] LABS: BASOPHILS % 0.5 % (0.0-2.0); EOSINOPHILS # 0.3 10^3/ul (0.0-0.5); HEMATOCRIT 27.3 % (42.0-52.0); HEMOGLOBIN 8.9 g/dl (14.0-18.0); LYMPHOCYTES # 1.3 10^3/ul (0.8-2.9); LYMPHOCYTES % 17.6 % (15.0-51.0); MEAN CORPUSCULAR HEMOGLOBIN 29.4 pg (29.0-33.0); MEAN CORPUSCULAR HGB CONC 32.6 g/dl (32.0-37.0); MEAN CORPUSCULAR VOLUME 90.1 fl (82.0-101.0); MEAN PLATELET VOLUME 10.8 fl (7.4-10.4); MONOCYTE # 0.9 10^3/ul (0.3-0.9); NEUTROPHIL # 4.9 10^3/ul (1.6-7.5); NEUTROPHILS % 65.4 % (39.0-77.0); PLATELET COUNT 243 10^3/UL (140-415); RED BLOOD COUNT 3.03 10^6/ul (4.70-6.10); RED CELL DISTRIBUTION WIDTH 16.3 % (11.5-14.5)
[2018-04-03 05:58] LABS: WHITE BLOOD COUNT 7.4 10^3/ul (4.8-10.8)
[2018-04-03 06:14] LABS: ANION GAP 13 (5-13); BLOOD UREA NITROGEN 43 mg/dl (7-20); CALCIUM 8.7 mg/dl (8.4-10.2); CARBON DIOXIDE 24 mmol/L (21-31); CHLORIDE 95 mmol/L (97-110); CREATININE 5.09 mg/dl (0.61-1.24); GLUCOSE 109 mg/dl (70-220); POTASSIUM 4.7 mmol/L (3.5-5.1); SODIUM 132 mmol/L (135-144)
[2018-04-03 06:22] LABS: MAGNESIUM 2.1 mg/dl (1.7-2.5)
[2018-04-03 06:22] LABS: PHOSPHORUS 5.5 mg/dl (2.5-4.9)
[2018-04-03] MEDS: ALLOPURINOL 100 MG TAB PO (08:26)
[2018-04-03] MEDS: ASPIRIN 81 MG TAB PO (08:26)
[2018-04-03] MEDS: NIFEdipine (XL) 30 MG TAB PO ×2 (08:26→22:09)
[2018-04-03] MEDS: CLOPIDOGREL 75 MG TAB PO (08:26)
[2018-04-03] MEDS ORDERED: HEPARIN 5,000 UNIT/0.5 ML VIAL SC (11:30)
[2018-04-03] MEDS ORDERED: HEPARIN 5,000 UNIT/0.5 ML VIAL (15:32)
[2018-04-03] MEDS: HEPARIN 5,000 UNIT/1 ML VIAL SC (15:48)
[2018-04-03] MEDS: APIXABAN 5 MG TABLET PO (22:08)
[2018-04-03] MEDS: ATORVASTATIN 20 MG TAB PO (22:08)
[2018-04-04] MEDS: ASPIRIN 81 MG TAB PO (10:40)
[2018-04-04] MEDS: CLOPIDOGREL 75 MG TAB PO (10:40)
[2018-04-04] MEDS: NIFEdipine (XL) 30 MG TAB PO ×2 (10:40→20:43)
[2018-04-04] MEDS: ALLOPURINOL 100 MG TAB PO (10:41)
[2018-04-04] MEDS: APIXABAN 5 MG TABLET PO ×2 (10:41→20:44)
[2018-04-04] MEDS: DOCUSATE SODIUM 100 MG CAP PO ×2 (12:49→16:11)
[2018-04-04] MEDS: MAGNESIUM HYDROXIDE 30ML CUP PO (16:11)
[2018-04-04] MEDS: ATORVASTATIN 20 MG TAB PO (20:43)
[2018-04-05 05:59] LABS: ADD MAN DIFF? NO
[2018-04-05 06:02] LABS: BASOPHIL # 0.1 10^3/ul (0.0-0.1); BASOPHILS % 0.6 % (0.0-2.0); EOSINOPHILS # 0.2 10^3/ul (0.0-0.5); EOSINOPHILS % 2.3 % (0.0-7.0); HEMATOCRIT 25.1 % (42.0-52.0); HEMOGLOBIN 8.2 g/dl (14.0-18.0); LYMPHOCYTES # 1.3 10^3/ul (0.8-2.9); LYMPHOCYTES % 15.8 % (15.0-51.0); MEAN CORPUSCULAR HEMOGLOBIN 29.5 pg (29.0-33.0); MEAN CORPUSCULAR HGB CONC 32.7 g/dl (32.0-37.0); MEAN CORPUSCULAR VOLUME 90.3 fl (82.0-101.0); MEAN PLATELET VOLUME 10.6 fl (7.4-10.4); MONOCYTES % 11.6 % (0.0-11.0); NEUTROPHIL # 5.8 10^3/ul (1.6-7.5); NEUTROPHILS % 69.2 % (39.0-77.0); PLATELET COUNT 286 10^3/UL (140-415); RED BLOOD COUNT 2.78 10^6/ul (4.70-6.10); RED CELL DISTRIBUTION WIDTH 16.2 % (11.5-14.5)
[2018-04-05 06:02] LABS: WHITE BLOOD COUNT 8.3 10^3/ul (4.8-10.8)
[2018-04-05 06:29] LABS: ANION GAP 9 (5-13); BLOOD UREA NITROGEN 35 mg/dl (7-20); CALCIUM 8.4 mg/dl (8.4-10.2); CARBON DIOXIDE 29 mmol/L (21-31); CHLORIDE 96 mmol/L (97-110); CREATININE 4.39 mg/dl (0.61-1.24); GLUCOSE 112 mg/dl (70-220); POTASSIUM 4.6 mmol/L (3.5-5.1); SODIUM 134 mmol/L (135-144)
[2018-04-05] MEDS: DOCUSATE SODIUM 100 MG CAP PO ×2 (08:37→21:13)
[2018-04-05] MEDS: NIFEdipine (XL) 30 MG TAB PO ×2 (08:37→21:13)
[2018-04-05] MEDS: ALLOPURINOL 100 MG TAB PO (08:37)
[2018-04-05] MEDS: CLOPIDOGREL 75 MG TAB PO (09:00)
[2018-04-05] MEDS: ASPIRIN 81 MG TAB PO (10:40)
[2018-04-05] MEDS: HYDROCODONE/APAP (10/325) TAB PO (12:17)
[2018-04-05] MEDS: ATORVASTATIN 20 MG TAB PO (21:13)
[2018-04-06] MEDS: NIFEdipine (XL) 30 MG TAB PO ×2 (08:23→21:35)
[2018-04-06] MEDS: ALLOPURINOL 100 MG TAB PO (08:56)
[2018-04-06] MEDS: ASPIRIN 81 MG TAB PO (08:56)
[2018-04-06] MEDS: DOCUSATE SODIUM 100 MG CAP PO ×2 (08:56→21:34)
[2018-04-06] MEDS: CLOPIDOGREL 75 MG TAB PO (08:56)
[2018-04-06] MEDS ORDERED: ALBUMIN HUMAN 25% 100 ML IV (09:00)
[2018-04-06] MEDS ORDERED: CLOPIDOGREL 75 MG TAB PO (09:00)
[2018-04-06] MEDS: HEPARIN 5,000 UNIT/0.5 ML VIAL SC (10:30)
[2018-04-06] MEDS: HEPARIN 1000 UNITS/ML 10 ML INJ CATHETER (11:43)
[2018-04-06] MEDS ORDERED: HEPARIN 5,000 UNIT/0.5 ML VIAL ×2 (13:31→22:10)
[2018-04-06] MEDS: HEPARIN 5,000 UNIT/1 ML VIAL SC ×2 (13:41→22:17)
[2018-04-06] MEDS: ATORVASTATIN 20 MG TAB PO (21:34)
[2018-04-07 05:41] LABS: ADD MAN DIFF? NO
[2018-04-07 05:45] LABS: BASOPHILS % 0.5 % (0.0-2.0); EOSINOPHILS # 0.3 10^3/ul (0.0-0.5); EOSINOPHILS % 4.2 % (0.0-7.0); HEMATOCRIT 24.9 % (42.0-52.0); HEMOGLOBIN 8.1 g/dl (14.0-18.0); LYMPHOCYTES # 1.3 10^3/ul (0.8-2.9); LYMPHOCYTES % 16.2 % (15.0-51.0); MEAN CORPUSCULAR HEMOGLOBIN 29.6 pg (29.0-33.0); MEAN CORPUSCULAR HGB CONC 32.5 g/dl (32.0-37.0); MEAN CORPUSCULAR VOLUME 90.9 fl (82.0-101.0); MEAN PLATELET VOLUME 10.5 fl (7.4-10.4); MONOCYTE # 0.8 10^3/ul (0.3-0.9); MONOCYTES % 10.3 % (0.0-11.0); NEUTROPHIL # 5.6 10^3/ul (1.6-7.5); NEUTROPHILS % 68.3 % (39.0-77.0); PLATELET COUNT 320 10^3/UL (140-415); RED BLOOD COUNT 2.74 10^6/ul (4.70-6.10); RED CELL DISTRIBUTION WIDTH 16.3 % (11.5-14.5)
[2018-04-07 05:45] LABS: WHITE BLOOD COUNT 8.2 10^3/ul (4.8-10.8)
[2018-04-07 06:17] LABS: ANION GAP 7 (5-13); BLOOD UREA NITROGEN 31 mg/dl (7-20); CALCIUM 8.4 mg/dl (8.4-10.2); CARBON DIOXIDE 29 mmol/L (21-31); CHLORIDE 99 mmol/L (97-110); CREATININE 3.52 mg/dl (0.61-1.24); GLUCOSE 95 mg/dl (70-220); POTASSIUM 4.3 mmol/L (3.5-5.1); SODIUM 135 mmol/L (135-144)
[2018-04-07] MEDS: ASPIRIN 81 MG TAB PO (09:00)
[2018-04-07] MEDS: ALLOPURINOL 100 MG TAB PO (09:00)
[2018-04-07] MEDS: DOCUSATE SODIUM 100 MG CAP PO ×2 (09:00→21:26)
[2018-04-07] MEDS: CLOPIDOGREL 75 MG TAB PO (09:00)
[2018-04-07] MEDS: NIFEdipine (XL) 30 MG TAB PO ×2 (09:09→21:27)
[2018-04-07] MEDS ORDERED: BUPIVACAINE 0.25%/EPI (SDV) 30 ML INJ (17:42)
[2018-04-07] MEDS ORDERED: PROPOFOL 20 ML (17:49)
[2018-04-07] MEDS ORDERED: FENTAnyl 50 MCG/ML VIAL (17:49)
[2018-04-07] MEDS ORDERED: MIDAZOLAM 1 MG/ML 2 ML INJ (17:49)
[2018-04-07] MEDS ORDERED: ROPIVACAINE 0.2% 20 ML VIAL (17:49)
[2018-04-07] MEDS ORDERED: CEFAZOLIN 1 GM INJ (18:13)
[2018-04-07] MEDS ORDERED: HYDROmorphONE 1 MG/5 ML IV SYRINGE IV ×3 (18:30)
[2018-04-07] MEDS ORDERED: ONDANSETRON 4 MG INJ IV (18:30)
[2018-04-07] MEDS: BUPIVACAINE 0.25% (MPF) 30 ML INJ (18:31)
[2018-04-07] MEDS: LIDOCAINE 1% (STERILE-PAK) 30 ML INJ (18:32)
[2018-04-07] MEDS: ATORVASTATIN 20 MG TAB PO (21:26)
[2018-04-08] MEDS: HYDROCODONE/APAP (10/325) TAB PO ×4 (01:19→21:36)
[2018-04-08] MEDS: ASPIRIN 81 MG TAB PO (09:21)
[2018-04-08] MEDS: DOCUSATE SODIUM 100 MG CAP PO ×2 (09:21→21:36)
[2018-04-08] MEDS: ALLOPURINOL 100 MG TAB PO (09:21)
[2018-04-08] MEDS: NIFEdipine (XL) 30 MG TAB PO ×2 (09:21→21:36)
[2018-04-08] MEDS: CLOPIDOGREL 75 MG TAB PO (09:21)
[2018-04-08] MEDS: HEPARIN 1000 UNITS/ML 10 ML INJ CATHETER (18:02)
[2018-04-08] MEDS: ATORVASTATIN 20 MG TAB PO (21:35)
[2018-04-09] MEDS: DOCUSATE SODIUM 100 MG CAP PO ×2 (08:13→20:30)
[2018-04-09] MEDS: ASPIRIN 81 MG TAB PO (08:13)
[2018-04-09] MEDS: NIFEdipine (XL) 30 MG TAB PO ×2 (08:14→20:29)
[2018-04-09] MEDS: ALLOPURINOL 100 MG TAB PO (08:14)
[2018-04-09] MEDS: CLOPIDOGREL 75 MG TAB PO (08:15)
[2018-04-09 10:26] LABS: ADD MAN DIFF? NO
[2018-04-09 10:28] LABS: WHITE BLOOD COUNT 8.5 10^3/ul (4.8-10.8)
[2018-04-09 10:28] LABS: BASOPHIL # 0.1 10^3/ul (0.0-0.1); BASOPHILS % 0.8 % (0.0-2.0); EOSINOPHILS # 0.5 10^3/ul (0.0-0.5); EOSINOPHILS % 5.9 % (0.0-7.0); HEMATOCRIT 28.4 % (42.0-52.0); HEMOGLOBIN 9.2 g/dl (14.0-18.0); LYMPHOCYTES # 1.2 10^3/ul (0.8-2.9); LYMPHOCYTES % 14.4 % (15.0-51.0); MEAN CORPUSCULAR HEMOGLOBIN 29.4 pg (29.0-33.0); MEAN CORPUSCULAR HGB CONC 32.4 g/dl (32.0-37.0); MEAN CORPUSCULAR VOLUME 90.7 fl (82.0-101.0); MEAN PLATELET VOLUME 10.1 fl (7.4-10.4); MONOCYTE # 0.8 10^3/ul (0.3-0.9); MONOCYTES % 9.3 % (0.0-11.0); NEUTROPHIL # 5.8 10^3/ul (1.6-7.5); NEUTROPHILS % 68.9 % (39.0-77.0); PLATELET COUNT 370 10^3/UL (140-415); RED BLOOD COUNT 3.13 10^6/ul (4.70-6.10); RED CELL DISTRIBUTION WIDTH 15.9 % (11.5-14.5)
[2018-04-09 10:44] LABS: ALANINE AMINOTRANSFERASE 27 IU/L (13-69); ALBUMIN 3.4 g/dl (3.3-4.9); ALKALINE PHOSPHATASE 153 IU/L (42-121); ANION GAP 9 (5-13); ASPARTATE AMINO TRANSFERASE 49 IU/L (15-46); BILIRUBIN,INDIRECT 0.4 mg/dl (0-1.1); BILIRUBIN,TOTAL 0.4 mg/dl (0.2-1.3); BLOOD UREA NITROGEN 34 mg/dl (7-20); CALCIUM 8.8 mg/dl (8.4-10.2); CARBON DIOXIDE 29 mmol/L (21-31); CHLORIDE 97 mmol/L (97-110); CREATININE 3.88 mg/dl (0.61-1.24); GLUCOSE 171 mg/dl (70-220); MAGNESIUM 2.3 mg/dl (1.7-2.5); PHOSPHORUS 3.6 mg/dl (2.5-4.9); POTASSIUM 4.5 mmol/L (3.5-5.1); SODIUM 135 mmol/L (135-144)
[2018-04-09] MEDS: HYDROCODONE/APAP (10/325) TAB PO ×2 (11:49→20:31)
[2018-04-09] MEDS: ATORVASTATIN 20 MG TAB PO (20:29)
[2018-04-10 05:33] LABS: ADD MAN DIFF? NO
[2018-04-10 05:38] LABS: WHITE BLOOD COUNT 8.5 10^3/ul (4.8-10.8)
[2018-04-10 05:38] LABS: BASOPHIL # 0.1 10^3/ul (0.0-0.1); BASOPHILS % 0.9 % (0.0-2.0); EOSINOPHILS # 0.6 10^3/ul (0.0-0.5); EOSINOPHILS % 6.7 % (0.0-7.0); HEMATOCRIT 26.2 % (42.0-52.0); HEMOGLOBIN 8.4 g/dl (14.0-18.0); LYMPHOCYTES # 1.9 10^3/ul (0.8-2.9); LYMPHOCYTES % 22.6 % (15.0-51.0); MEAN CORPUSCULAR HGB CONC 32.1 g/dl (32.0-37.0); MEAN CORPUSCULAR VOLUME 90.3 fl (82.0-101.0); MEAN PLATELET VOLUME 10.5 fl (7.4-10.4); MONOCYTE # 0.8 10^3/ul (0.3-0.9); MONOCYTES % 9.7 % (0.0-11.0); NEUTROPHIL # 5.1 10^3/ul (1.6-7.5); NEUTROPHILS % 59.3 % (39.0-77.0); PLATELET COUNT 335 10^3/UL (140-415); RED CELL DISTRIBUTION WIDTH 15.8 % (11.5-14.5)
[2018-04-10 06:03] LABS: ANION GAP 11 (5-13); BLOOD UREA NITROGEN 48 mg/dl (7-20); CALCIUM 8.7 mg/dl (8.4-10.2); CARBON DIOXIDE 27 mmol/L (21-31); CHLORIDE 97 mmol/L (97-110); CREATININE 4.61 mg/dl (0.61-1.24); GLUCOSE 100 mg/dl (70-220); MAGNESIUM 2.4 mg/dl (1.7-2.5); PHOSPHORUS 4.1 mg/dl (2.5-4.9); POTASSIUM 4.5 mmol/L (3.5-5.1); SODIUM 135 mmol/L (135-144)
[2018-04-10] MEDS: HYDROCODONE/APAP (10/325) TAB PO ×2 (06:45→15:38)
[2018-04-10] MEDS: ASPIRIN 81 MG TAB PO (09:23)
[2018-04-10] MEDS: DOCUSATE SODIUM 100 MG CAP PO ×2 (09:23→21:32)
[2018-04-10] MEDS: CLOPIDOGREL 75 MG TAB PO (09:23)
[2018-04-10] MEDS: NIFEdipine (XL) 30 MG TAB PO ×2 (09:23→21:33)
[2018-04-10] MEDS: ALLOPURINOL 100 MG TAB PO (09:23)
[2018-04-10] MEDS: ATORVASTATIN 20 MG TAB PO (21:33)
[2018-04-11 05:46] LABS: ADD MAN DIFF? NO
[2018-04-11 05:50] LABS: WHITE BLOOD COUNT 9.2 10^3/ul (4.8-10.8)
[2018-04-11 05:50] LABS: BASOPHIL # 0.1 10^3/ul (0.0-0.1); BASOPHILS % 0.9 % (0.0-2.0); EOSINOPHILS # 0.7 10^3/ul (0.0-0.5); EOSINOPHILS % 7.1 % (0.0-7.0); HEMATOCRIT 27.1 % (42.0-52.0); HEMOGLOBIN 8.8 g/dl (14.0-18.0); LYMPHOCYTES # 1.7 10^3/ul (0.8-2.9); LYMPHOCYTES % 18.3 % (15.0-51.0); MEAN CORPUSCULAR HEMOGLOBIN 29.4 pg (29.0-33.0); MEAN CORPUSCULAR HGB CONC 32.5 g/dl (32.0-37.0); MEAN CORPUSCULAR VOLUME 90.6 fl (82.0-101.0); MEAN PLATELET VOLUME 10.4 fl (7.4-10.4); MONOCYTE # 0.7 10^3/ul (0.3-0.9); PLATELET COUNT 350 10^3/UL (140-415); RED BLOOD COUNT 2.99 10^6/ul (4.70-6.10); RED CELL DISTRIBUTION WIDTH 15.7 % (11.5-14.5)
[2018-04-11 06:15] LABS: ANION GAP 12 (5-13); BLOOD UREA NITROGEN 57 mg/dl (7-20); CALCIUM 8.5 mg/dl (8.4-10.2); CARBON DIOXIDE 25 mmol/L (21-31); CHLORIDE 96 mmol/L (97-110); CREATININE 5.61 mg/dl (0.61-1.24); GLUCOSE 103 mg/dl (70-220); MAGNESIUM 2.5 mg/dl (1.7-2.5); PHOSPHORUS 4.7 mg/dl (2.5-4.9); POTASSIUM 4.9 mmol/L (3.5-5.1); SODIUM 133 mmol/L (135-144)
[2018-04-11] MEDS: DOCUSATE SODIUM 100 MG CAP PO ×2 (09:00→20:30)
[2018-04-11] MEDS: ASPIRIN 81 MG TAB PO (09:00)
[2018-04-11] MEDS: NIFEdipine (XL) 30 MG TAB PO ×2 (09:00→20:31)
[2018-04-11] MEDS: ALLOPURINOL 100 MG TAB PO (09:00)
[2018-04-11] MEDS: CLOPIDOGREL 75 MG TAB PO (09:00)
[2018-04-11] MEDS: HEPARIN 1000 UNITS/ML 10 ML INJ CATHETER (12:59)
[2018-04-11] MEDS: ATORVASTATIN 20 MG TAB PO (20:31)
== END 2018-04-11 21:15 | disposition home health service (06) | DRG 252 ==
LOC: REC 05:48 → ICU 11:05 → 6WM 04-01 18:59
PROC: 041K09N Bypass Right Femoral Artery to Posterior Tibial Artery with Autologous Venous Tissue, Open Approach (ICD-10-PCS; principal; 2018-03-31 07:57)
PROC: 06BP0ZZ Excision of Right Saphenous Vein, Open Approach (ICD-10-PCS; 2018-03-31 07:57)
PROC: 0QBQ0ZZ Excision of Right Toe Phalanx, Open Approach (ICD-10-PCS; 2018-03-31 07:57)
PROC: 0Y6T0Z3 Detachment at Right 3rd Toe, Low, Open Approach (ICD-10-PCS; 2018-03-31 07:57)
PROC: 5A1D70Z Performance of Urinary Filtration, Intermittent, Less than 6 Hours Per Day (ICD-10-PCS; 2018-03-31 07:57)
DX: I70.261 Atherosclerosis of native arteries of extremities with gangrene, right leg (principal); N18.6 End stage renal disease; I12.0 Hypertensive chronic kidney disease with stage 5 chronic kidney disease or end stage renal disease; Z99.2 Dependence on renal dialysis; I25.10 Atherosclerotic heart disease of native coronary artery without angina pectoris; Z95.5 Presence of coronary angioplasty implant and graft; E78.5 Hyperlipidemia, unspecified; Z86.718 Personal history of other venous thrombosis and embolism; E79.0 Hyperuricemia without signs of inflammatory arthritis and tophaceous disease; F03.90 Unspecified dementia, unspecified severity, without behavioral disturbance, psychotic disturbance, mood disturbance, and anxiety
CPT/HCPCS: 80048; 80053; 83735; 84100; 85025; 85610; 85730; 86706; 86850; 86900; 86901; 87081; 87340; 88305; 88311; 90935; 93970; 97110; 97116; 97161; 97162; 97530

== ENCOUNTER 2018-04-14 17:32 | Emergency (ER) | payer OTHER | END 2018-04-15 01:05 | disposition home or self-care (01) | LOC: E/R 04-15 01:05 | DX: M96.830 Postprocedural hemorrhage of a musculoskeletal structure following a musculoskeletal system procedure (principal); I10 Essential (primary) hypertension; Z79.01 Long term (current) use of anticoagulants | CPT/HCPCS: 99283-25 ==

== ENCOUNTER 2018-06-14 11:52 | Emergency (ER) | payer OTHER ==
[2018-06-14 14:00] LABS: ADD MAN DIFF? NO
[2018-06-14 14:07] LABS: WHITE BLOOD COUNT 5.7 10^3/ul (4.8-10.8)
[2018-06-14 14:07] LABS: BASOPHIL # 0.1 10^3/ul (0.0-0.1); BASOPHILS % 1.2 % (0.0-2.0); EOSINOPHILS # 0.8 10^3/ul (0.0-0.5); EOSINOPHILS % 14.3 % (0.0-7.0); HEMATOCRIT 36.6 % (42.0-52.0); HEMOGLOBIN 11.6 g/dl (14.0-18.0); LYMPHOCYTES # 1.5 10^3/ul (0.8-2.9); LYMPHOCYTES % 25.6 % (15.0-51.0); MEAN CORPUSCULAR HGB CONC 31.7 g/dl (32.0-37.0); MEAN CORPUSCULAR VOLUME 94.6 fl (82.0-101.0); MEAN PLATELET VOLUME 10.9 fl (7.4-10.4); MONOCYTE # 0.7 10^3/ul (0.3-0.9); MONOCYTES % 12.3 % (0.0-11.0); NEUTROPHIL # 2.6 10^3/ul (1.6-7.5); NEUTROPHILS % 46.2 % (39.0-77.0); PLATELET COUNT 203 10^3/UL (140-415); RED BLOOD COUNT 3.87 10^6/ul (4.70-6.10); RED CELL DISTRIBUTION WIDTH 16.9 % (11.5-14.5)
[2018-06-14 14:27] LABS: ALANINE AMINOTRANSFERASE 13 IU/L (13-69); ALBUMIN 3.5 g/dl (3.3-4.9); ALBUMIN/GLOBULIN RATIO 1.16; ALKALINE PHOSPHATASE 87 IU/L (42-121); ANION GAP 8 (5-13); ASPARTATE AMINO TRANSFERASE 15 IU/L (15-46); BLOOD UREA NITROGEN 30 mg/dl (7-20); CALCIUM 9.3 mg/dl (8.4-10.2); CARBON DIOXIDE 29 mmol/L (21-31); CHLORIDE 100 mmol/L (97-110); CREATININE 5.46 mg/dl (0.61-1.24); GLUCOSE 89 mg/dl (70-220); INR 1.17; PARTIAL THROMBOPLASTIN TIME 37.7 Sec (23.0-35.0); PT RATIO 1.2; SODIUM 137 mmol/L (135-144); TOTAL PROTEIN 6.5 g/dl (6.1-8.1)
[2018-06-14 14:28] LABS: POTASSIUM 5.2 mmol/L (3.5-5.1)
[2018-06-14 14:38] LABS: TROPONIN-I < 0.012 ng/ml (0.000-0.120)
== END 2018-06-14 16:59 | disposition home or self-care (01) ==
LOC: E/R 11:52
DX: F03.90 Unspecified dementia, unspecified severity, without behavioral disturbance, psychotic disturbance, mood disturbance, and anxiety (principal); I25.10 Atherosclerotic heart disease of native coronary artery without angina pectoris; I12.9 Hypertensive chronic kidney disease with stage 1 through stage 4 chronic kidney disease, or unspecified chronic kidney disease; N18.9 Chronic kidney disease, unspecified; D64.9 Anemia, unspecified; R41.82 Altered mental status, unspecified
CPT/HCPCS: 36415; 70450; 71045; 80053; 82962; 83605; 84484; 85025; 85610; 85730; 87040; 93005; 99285-25

== ENCOUNTER 2018-08-23 17:39 | Inpatient (IN) | payer OTHER ==
[~2018-08-23 17:39] MED LIST changes: -CEFAZOLIN 2 GM/50 ML (PMX) 50 ML IVPB; +ETOMIDATE 20 MG INJ; +ROCURONIUM 50 MG INJ
[2018-08-23 18:04] LABS: ADD MAN DIFF? NO
[2018-08-23 18:10] LABS: WHITE BLOOD COUNT 8.7 10^3/ul (4.8-10.8)
[2018-08-23 18:10] LABS: BASOPHILS % 0.3 % (0.0-2.0); EOSINOPHILS # 0.2 10^3/ul (0.0-0.5); EOSINOPHILS % 2.3 % (0.0-7.0); HEMATOCRIT 40.3 % (42.0-52.0); HEMOGLOBIN 12.9 g/dl (14.0-18.0); LYMPHOCYTES # 3.4 10^3/ul (0.8-2.9); LYMPHOCYTES % 38.6 % (15.0-51.0); MEAN CORPUSCULAR HEMOGLOBIN 30.6 pg (29.0-33.0); MEAN CORPUSCULAR VOLUME 95.5 fl (82.0-101.0); MEAN PLATELET VOLUME 11.1 fl (7.4-10.4); MONOCYTE # 0.2 10^3/ul (0.3-0.9); MONOCYTES % 2.5 % (0.0-11.0); NEUTROPHIL # 4.9 10^3/ul (1.6-7.5); PLATELET COUNT 198 10^3/UL (140-415); RED BLOOD COUNT 4.22 10^6/ul (4.70-6.10); RED CELL DISTRIBUTION WIDTH 16.9 % (11.5-14.5)
[2018-08-23 18:31] LABS: AADO2 Arterial 517.6 mmHg (7.0-24.0); Allen Test ACCEPTAB; Arterial Base Excess -9.5 mmol/L (-3.0-3); Arterial Blood Gas Oxygen Sat 98.5 mmHG (95.0-100.0); Arterial COHb 0.2 % (0.0-3.0); Arterial Fraction of Oxyhgb 97.9 % (93.0-99.0); Arterial HCO3 17.6 mmol/L (22.0-26.0); Arterial MetHb 0.4 % (0.0-1.5); Arterial pCO2 42.5 mmhg (35-45); MODE VENT - AC; Site Right Radial
[2018-08-23] MEDS: VANCOMYCIN 1 GM (PMX) 250 ML IVPB (18:55)
[2018-08-23] MEDS: PIPER-TAZO 2.25 GM (PMX) 50 ML IVPB (18:55)
[2018-08-23 19:19] LABS: INR 1.07; PT RATIO 1.1
[2018-08-23 19:20] LABS: PARTIAL THROMBOPLASTIN TIME 39.8 Sec (23.0-35.0)
[2018-08-23] MEDS: MIDAZOLAM (DRIP) 50 mg/50 mL 50 ML IV (20:20)
[2018-08-23 20:42] LABS: ALANINE AMINOTRANSFERASE 9 IU/L (13-69); ALBUMIN/GLOBULIN RATIO 1.17; ALKALINE PHOSPHATASE 96 IU/L (42-121); ANION GAP 18 (5-13); ASPARTATE AMINO TRANSFERASE 22 IU/L (15-46); BILIRUBIN,INDIRECT 0.3 mg/dl (0-1.1); BILIRUBIN,TOTAL 0.3 mg/dl (0.2-1.3); BLOOD UREA NITROGEN 32 mg/dl (7-20); CALCIUM 8.5 mg/dl (8.4-10.2); CARBON DIOXIDE 21 mmol/L (21-31); CHLORIDE 94 mmol/L (97-110); GLUCOSE 148 mg/dl (70-220); SODIUM 133 mmol/L (135-144); TOTAL PROTEIN 7.4 g/dl (6.1-8.1)
[2018-08-23 21:00] LABS: POTASSIUM 7.4 mmol/L (3.5-5.1); TROPONIN-I 0.415 ng/ml (0.000-0.120)
[2018-08-23 21:06] LABS: ANION GAP 11 (5-13); BLOOD UREA NITROGEN 25 mg/dl (7-20); CARBON DIOXIDE 14 mmol/L (21-31); CHLORIDE 110 mmol/L (97-110); CREATININE 2.84 mg/dl (0.61-1.24); GLUCOSE 90 mg/dl (70-220); POTASSIUM 4.4 mmol/L (3.5-5.1); SODIUM 135 mmol/L (135-144)
[2018-08-23 21:07] LABS: ALANINE AMINOTRANSFERASE 12 IU/L (13-69); ALKALINE PHOSPHATASE 57 IU/L (42-121); ASPARTATE AMINO TRANSFERASE 13 IU/L (15-46); BILIRUBIN,TOTAL 0.2 mg/dl (0.2-1.3); CALCIUM 5.6 mg/dl (8.4-10.2)
[2018-08-23] MEDS: NORepinephrine 8MG/250 ML (PMX 250 ML IV (21:07)
[2018-08-23 21:08] LABS: ALBUMIN 2.3 g/dl (3.3-4.9); ALBUMIN/GLOBULIN RATIO 0.95; BILIRUBIN,INDIRECT 0.2 mg/dl (0-1.1); TOTAL PROTEIN 4.7 g/dl (6.1-8.1)
[2018-08-23 21:28] LABS: AADO2 Arterial 592.8 mmHg (7.0-24.0); Allen Test ACCEPTAB; Arterial Base Excess -5.7 mmol/L (-3.0-3); Arterial Blood Gas Oxygen Sat 95.8 mmHG (95.0-100.0); Arterial COHb 0.1 % (0.0-3.0); Arterial Fraction of Oxyhgb 95.5 % (93.0-99.0); Arterial MetHb 0.2 % (0.0-1.5); Arterial pCO2 35.1 mmhg (35-45); MODE VENT - AC; Site Right Radial
[2018-08-23] MEDS ORDERED: VANCOMYCIN IV PER PHARMACY XX (22:00)
[2018-08-23 22:39] LABS: ADD MAN DIFF? NO
[2018-08-23 22:45] LABS: BASOPHILS % 0.2 % (0.0-2.0); EOSINOPHILS % 0.2 % (0.0-7.0); HEMATOCRIT 37.9 % (42.0-52.0); HEMOGLOBIN 12.5 g/dl (14.0-18.0); LYMPHOCYTES # 1.1 10^3/ul (0.8-2.9); LYMPHOCYTES % 12.1 % (15.0-51.0); MEAN CORPUSCULAR HEMOGLOBIN 31.1 pg (29.0-33.0); MEAN CORPUSCULAR VOLUME 94.3 fl (82.0-101.0); MEAN PLATELET VOLUME 9.9 fl (7.4-10.4); MONOCYTE # 0.5 10^3/ul (0.3-0.9); MONOCYTES % 4.9 % (0.0-11.0); NEUTROPHIL # 7.6 10^3/ul (1.6-7.5); NEUTROPHILS % 82.1 % (39.0-77.0); PLATELET COUNT 183 10^3/UL (140-415); RED BLOOD COUNT 4.02 10^6/ul (4.70-6.10); RED CELL DISTRIBUTION WIDTH 16.2 % (11.5-14.5)
[2018-08-23 22:45] LABS: WHITE BLOOD COUNT 9.2 10^3/ul (4.8-10.8)
[2018-08-23 23:08] LABS: ANION GAP 17 (5-13); BLOOD UREA NITROGEN 36 mg/dl (7-20); CALCIUM 8.4 mg/dl (8.4-10.2); CARBON DIOXIDE 21 mmol/L (21-31); CHLORIDE 94 mmol/L (97-110); CREATINE KINASE 53 IU/L (23-200); CREATININE 4.32 mg/dl (0.61-1.24); GLUCOSE 93 mg/dl (70-220); POTASSIUM 5.6 mmol/L (3.5-5.1); SODIUM 132 mmol/L (135-144)
[2018-08-23 23:10] LABS: LACTIC ACID 2.1 mmol/L (0.5-2.0)
[2018-08-23 23:24] LABS: TROPONIN-I 0.723 ng/ml (0.000-0.120)
[2018-08-23] MEDS: SOD CHLORIDE 0.9% 1,000 ML IV (23:55)
[2018-08-24] MEDS: VANCOMYCIN 500 MG (PMX) 100 ML IVPB (00:09)
[2018-08-24] MEDS: PANTOPRAZOLE 40 MG INJ IV (04:38)
[2018-08-24] MEDS: LORAZEPAM 2 MG INJ IV (05:42)
[2018-08-24] MEDS ORDERED: PANTOPRAZOLE 40 MG INJ IV ×2 (06:00→11:00)
[2018-08-24] MEDS: PANTOPRAZOLE IV 80 MG in SOD CHLORIDE 0.9% 100 ML IV (06:08)
[2018-08-24 06:09] LABS: ADD MAN DIFF? NO
[2018-08-24 06:11] LABS: WHITE BLOOD COUNT 11.8 10^3/ul (4.8-10.8)
[2018-08-24 06:11] LABS: BASOPHILS % 0.2 % (0.0-2.0); EOSINOPHILS % 0.2 % (0.0-7.0); HEMATOCRIT 35.4 % (42.0-52.0); HEMOGLOBIN 11.6 g/dl (14.0-18.0); LYMPHOCYTES # 1.5 10^3/ul (0.8-2.9); LYMPHOCYTES % 12.7 % (15.0-51.0); MEAN CORPUSCULAR HEMOGLOBIN 30.8 pg (29.0-33.0); MEAN CORPUSCULAR HGB CONC 32.8 g/dl (32.0-37.0); MEAN CORPUSCULAR VOLUME 93.9 fl (82.0-101.0); MEAN PLATELET VOLUME 10.5 fl (7.4-10.4); MONOCYTE # 0.4 10^3/ul (0.3-0.9); NEUTROPHIL # 9.8 10^3/ul (1.6-7.5); NEUTROPHILS % 83.4 % (39.0-77.0); PLATELET COUNT 188 10^3/UL (140-415); RED BLOOD COUNT 3.77 10^6/ul (4.70-6.10); RED CELL DISTRIBUTION WIDTH 16.5 % (11.5-14.5)
[2018-08-24 06:41] LABS: ALANINE AMINOTRANSFERASE 12 IU/L (13-69); ALBUMIN 3.2 g/dl (3.3-4.9); ALKALINE PHOSPHATASE 55 IU/L (42-121); ANION GAP 17 (5-13); ASPARTATE AMINO TRANSFERASE 26 IU/L (15-46); BILIRUBIN,INDIRECT 0.3 mg/dl (0-1.1); BILIRUBIN,TOTAL 0.3 mg/dl (0.2-1.3); BLOOD UREA NITROGEN 39 mg/dl (7-20); CALCIUM 8.2 mg/dl (8.4-10.2); CARBON DIOXIDE 19 mmol/L (21-31); CHLORIDE 96 mmol/L (97-110); CHOL/HDL RATIO 3.8 RATIO; CHOLESTEROL 163 mg/dl (100-200); CREATININE 4.64 mg/dl (0.61-1.24); GLUCOSE 89 mg/dl (70-220); HDL CHOLESTEROL 42 mg/dl (31-75); LDL CHOLESTEROL,CALCULATED 85 mg/dl; MAGNESIUM 1.6 mg/dl (1.7-2.5); PHOSPHORUS 5.8 mg/dl (2.5-4.9); POTASSIUM 5.7 mmol/L (3.5-5.1); SODIUM 132 mmol/L (135-144); TOTAL PROTEIN 6.4 g/dl (6.1-8.1); TRIGLYCERIDES 181 mg/dl (0-149)
[2018-08-24 06:42] LABS: CREATINE KINASE 55 IU/L (23-200)
[2018-08-24 06:44] LABS: CK INDEX 3.9; CK-MB 2.16 ng/ml (0.0-2.4)
[2018-08-24 07:07] LABS: HEMOGLOBIN A1C 5.5 % (0-5.9)
[2018-08-24] MEDS: ACETAMINOPHEN 650MG/20.3ML CUP PO (07:36)
[2018-08-24] MEDS ORDERED: FAMOTIDINE 20 MG INJ IV (09:00)
[2018-08-24] MEDS: NORepinephrine 8MG/250 ML (PMX 250 ML IV ×3 (09:11→22:32)
[2018-08-24] MEDS: PIPER-TAZO 2.25 GM (PMX) 50 ML IVPB ×2 (10:02→21:25)
[2018-08-24] MEDS: FAMOTIDINE 20 MG INJ IV (12:04)
[2018-08-24 12:17] LABS: LACTIC ACID 1.9 mmol/L (0.5-2.0)
[2018-08-24] MEDS: FENTAnyl (DRIP) 1000 mcg/100mL 100 ML IV (12:29)
[2018-08-24 12:36] LABS: WHITE BLOOD COUNT 16.3 10^3/ul (4.8-10.8)
[2018-08-24 12:36] LABS: HEMATOCRIT 34.7 % (42.0-52.0); HEMOGLOBIN 11.3 g/dl (14.0-18.0); MEAN CORPUSCULAR HEMOGLOBIN 30.8 pg (29.0-33.0); MEAN CORPUSCULAR HGB CONC 32.6 g/dl (32.0-37.0); MEAN CORPUSCULAR VOLUME 94.6 fl (82.0-101.0); MEAN PLATELET VOLUME 10.6 fl (7.4-10.4); PLATELET COUNT 186 10^3/UL (140-415); POSITIVE DIFF @See below; RED BLOOD COUNT 3.67 10^6/ul (4.70-6.10); RED CELL DISTRIBUTION WIDTH 16.7 % (11.5-14.5)
[2018-08-24 12:39] LABS: ADD MAN DIFF? YES
[2018-08-24 13:03] LABS: ANISOCYTOSIS 1+ (0-0); BAND NEUTROPHILS #M 4.4 10^3/ul (0.0-0.6); BAND NEUTROPHILS % (M) 27 % (0-4); BURR CELLS 2+ (0-0); GIANT THROMBO% (M) 1 % (0-0); LYMPHOCYTES #M 2.9 10^3/ul (0.8-2.9); LYMPHOCYTES % (M) 18 % (15-51); MONOCYTE #M 0.4 10^3/ul (0.3-0.9); MONOCYTES % (M) 3 % (0-11); MYELOCYTES #M 0.1 10^3/ul (0.0-0.0); MYELOCYTES % (M) 1 % (0-0); PLATELET ESTIMATE NORMAL; POIKILOCYTOSIS 1+ (0-0); POLYCHROMASIA 1+ (0-0); SEGMENTED NEUTROPHILS (M) % 51 % (39-77); SMUDGE%M 8 % (0-0)
[2018-08-24 14:56] LABS: HEPATITIS B SURFACE ANTIGEN NEGATIVE (NEGATIVE)
[2018-08-24] MEDS: CLOPIDOGREL 75 MG TAB PO (15:05)
[2018-08-24 15:23] LABS: HEPATITIS B SURFACE ANTIBODY NEGATIVE (NEGATIVE)
[2018-08-24] MEDS: MIDAZOLAM (DRIP) 50 mg/50 mL 50 ML IV (17:44)
[2018-08-24] MEDS: HEPARIN 1000 UNITS/ML 10 ML INJ CATHETER (17:50)
[2018-08-24 18:21] LABS: ADD MAN DIFF? NO
[2018-08-24 18:22] LABS: WHITE BLOOD COUNT 16.1 10^3/ul (4.8-10.8)
[2018-08-24 18:22] LABS: BASOPHILS % 0.2 % (0.0-2.0); EOSINOPHILS % 0.1 % (0.0-7.0); HEMATOCRIT 35.2 % (42.0-52.0); HEMOGLOBIN 11.9 g/dl (14.0-18.0); LYMPHOCYTES # 1.7 10^3/ul (0.8-2.9); LYMPHOCYTES % 10.6 % (15.0-51.0); MEAN CORPUSCULAR HEMOGLOBIN 30.8 pg (29.0-33.0); MEAN CORPUSCULAR HGB CONC 33.8 g/dl (32.0-37.0); MEAN CORPUSCULAR VOLUME 91.2 fl (82.0-101.0); MEAN PLATELET VOLUME 9.9 fl (7.4-10.4); MONOCYTE # 0.4 10^3/ul (0.3-0.9); MONOCYTES % 2.7 % (0.0-11.0); NEUTROPHIL # 13.7 10^3/ul (1.6-7.5); NEUTROPHILS % 85.5 % (39.0-77.0); PLATELET COUNT 199 10^3/UL (140-415); RED BLOOD COUNT 3.86 10^6/ul (4.70-6.10); RED CELL DISTRIBUTION WIDTH 16.4 % (11.5-14.5)
[2018-08-25] MEDS: MIDAZOLAM (DRIP) 50 mg/50 mL 50 ML IV (04:05)
[2018-08-25] MEDS: ACETAMINOPHEN 650MG/20.3ML CUP PO (04:06)
[2018-08-25 05:13] LABS: ADD MAN DIFF? NO
[2018-08-25 05:27] LABS: BASOPHILS % 0.1 % (0.0-2.0); EOSINOPHILS % 0.2 % (0.0-7.0); HEMATOCRIT 30.6 % (42.0-52.0); HEMOGLOBIN 10.3 g/dl (14.0-18.0); LYMPHOCYTES # 1.3 10^3/ul (0.8-2.9); LYMPHOCYTES % 11.2 % (15.0-51.0); MEAN CORPUSCULAR HEMOGLOBIN 30.8 pg (29.0-33.0); MEAN CORPUSCULAR HGB CONC 33.7 g/dl (32.0-37.0); MEAN CORPUSCULAR VOLUME 91.6 fl (82.0-101.0); MEAN PLATELET VOLUME 10.7 fl (7.4-10.4); MONOCYTE # 0.4 10^3/ul (0.3-0.9); MONOCYTES % 3.5 % (0.0-11.0); NEUTROPHIL # 9.9 10^3/ul (1.6-7.5); NEUTROPHILS % 84.3 % (39.0-77.0); PLATELET COUNT 190 10^3/UL (140-415); RED BLOOD COUNT 3.34 10^6/ul (4.70-6.10); RED CELL DISTRIBUTION WIDTH 16.6 % (11.5-14.5)
[2018-08-25 05:27] LABS: WHITE BLOOD COUNT 11.8 10^3/ul (4.8-10.8)
[2018-08-25 05:45] LABS: ALANINE AMINOTRANSFERASE 13 IU/L (13-69); ALBUMIN 2.8 g/dl (3.3-4.9); ALKALINE PHOSPHATASE 86 IU/L (42-121); ANION GAP 11 (5-13); ASPARTATE AMINO TRANSFERASE 19 IU/L (15-46); BILIRUBIN,INDIRECT 0.4 mg/dl (0-1.1); BILIRUBIN,TOTAL 0.4 mg/dl (0.2-1.3); BLOOD UREA NITROGEN 29 mg/dl (7-20); CALCIUM 8.5 mg/dl (8.4-10.2); CARBON DIOXIDE 32 mmol/L (21-31); CHLORIDE 94 mmol/L (97-110); CREATININE 3.32 mg/dl (0.61-1.24); GLUCOSE 151 mg/dl (70-220); PHOSPHORUS 2.2 mg/dl (2.5-4.9); POTASSIUM 3.6 mmol/L (3.5-5.1); SODIUM 137 mmol/L (135-144); TOTAL PROTEIN 5.6 g/dl (6.1-8.1)
[2018-08-25 05:51] LABS: CHOLESTEROL 128 mg/dl (100-200)
[2018-08-25 05:51] LABS: CHOL/HDL RATIO 3.7 RATIO; HDL CHOLESTEROL 34 mg/dl (31-75); LDL CHOLESTEROL,CALCULATED 66 mg/dl; TRIGLYCERIDES 142 mg/dl (0-149)
[2018-08-25 07:36] LABS: AADO2 Arterial 155.4 mmHg (7.0-24.0); Allen Test ACCEPTAB; Arterial Base Excess 7.4 mmol/L (-3.0-3); Arterial Blood Gas Oxygen Sat 97.1 mmHG (95.0-100.0); Arterial COHb 0.3 % (0.0-3.0); Arterial Fraction of Oxyhgb 96.7 % (93.0-99.0); Arterial HCO3 29.9 mmol/L (22.0-26.0); Arterial MetHb 0.1 % (0.0-1.5); Arterial pCO2 34.6 mmhg (35-45); MODE VENT - AC; Site Right Radial
[2018-08-25] MEDS: PIPER-TAZO 2.25 GM (PMX) 50 ML IVPB ×2 (09:02→20:40)
[2018-08-25] MEDS: CLOPIDOGREL 75 MG TAB PO (09:09)
[2018-08-25] MEDS: FAMOTIDINE 20 MG INJ IV (09:09)
[2018-08-25 10:10] LABS: CREATINE KINASE 44 IU/L (23-200)
[2018-08-25 10:24] LABS: CK-MB 0.44 ng/ml (0.0-2.4)
[2018-08-25 10:28] LABS: TROPONIN-I 0.885 ng/ml (0.000-0.120)
[2018-08-25] MEDS: POTASSIUM PHOSPHATE 15 MM in SOD CHLORIDE 0.9% 250 ML IVPB (10:51)
[2018-08-25] MEDS: APIXABAN 5 MG TABLET PO ×2 (14:48→20:41)
[2018-08-25] MEDS: LANSOPRAZOLE 30 MG CAP GTB (18:00)
[2018-08-25] MEDS ORDERED: PANTOPRAZOLE (EC) 40 MG TAB PO (18:00)
[2018-08-25] MEDS: FENTAnyl (DRIP) 1000 mcg/100mL 100 ML IV (18:47)
[2018-08-25] MEDS: NORepinephrine 8MG/250 ML (PMX 250 ML IV (22:24)
[2018-08-26] MEDS: MIDAZOLAM (DRIP) 50 mg/50 mL 50 ML IV ×3 (02:49→21:05)
[2018-08-26 04:45] LABS: ADD MAN DIFF? NO
[2018-08-26 04:47] LABS: BASOPHILS % 0.2 % (0.0-2.0); EOSINOPHILS # 0.1 10^3/ul (0.0-0.5); EOSINOPHILS % 1.1 % (0.0-7.0); HEMATOCRIT 29.4 % (42.0-52.0); HEMOGLOBIN 9.9 g/dl (14.0-18.0); LYMPHOCYTES # 1.6 10^3/ul (0.8-2.9); LYMPHOCYTES % 14.9 % (15.0-51.0); MEAN CORPUSCULAR HEMOGLOBIN 30.8 pg (29.0-33.0); MEAN CORPUSCULAR HGB CONC 33.7 g/dl (32.0-37.0); MEAN CORPUSCULAR VOLUME 91.6 fl (82.0-101.0); MEAN PLATELET VOLUME 10.5 fl (7.4-10.4); MONOCYTE # 0.3 10^3/ul (0.3-0.9); MONOCYTES % 3.2 % (0.0-11.0); NEUTROPHIL # 8.6 10^3/ul (1.6-7.5); NEUTROPHILS % 80.2 % (39.0-77.0); PLATELET COUNT 203 10^3/UL (140-415); RED BLOOD COUNT 3.21 10^6/ul (4.70-6.10); RED CELL DISTRIBUTION WIDTH 17.1 % (11.5-14.5)
[2018-08-26 04:47] LABS: WHITE BLOOD COUNT 10.7 10^3/ul (4.8-10.8)
[2018-08-26 05:10] LABS: VANCOMYCIN,RANDOM 8.7 ug/ml
[2018-08-26 05:18] LABS: ALANINE AMINOTRANSFERASE 16 IU/L (13-69); ALBUMIN 2.8 g/dl (3.3-4.9); ALKALINE PHOSPHATASE 111 IU/L (42-121); ANION GAP 12 (5-13); ASPARTATE AMINO TRANSFERASE 21 IU/L (15-46); BILIRUBIN,INDIRECT 0.4 mg/dl (0-1.1); BILIRUBIN,TOTAL 0.4 mg/dl (0.2-1.3); BLOOD UREA NITROGEN 48 mg/dl (7-20); CALCIUM 8.4 mg/dl (8.4-10.2); CARBON DIOXIDE 30 mmol/L (21-31); CHLORIDE 96 mmol/L (97-110); CREATININE 4.56 mg/dl (0.61-1.24); GLUCOSE 105 mg/dl (70-220); PHOSPHORUS 3.5 mg/dl (2.5-4.9); POTASSIUM 3.6 mmol/L (3.5-5.1); SODIUM 138 mmol/L (135-144); TOTAL PROTEIN 5.6 g/dl (6.1-8.1)
[2018-08-26] MEDS: CLOPIDOGREL 75 MG TAB PO (08:11)
[2018-08-26] MEDS: MULTIVITAMINS 30 ML CUP NGT (08:11)
[2018-08-26] MEDS: ASCORBIC ACID 250 MG TAB NGT (08:11)
[2018-08-26] MEDS: PIPER-TAZO 2.25 GM (PMX) 50 ML IVPB ×2 (08:11→20:49)
[2018-08-26] MEDS: APIXABAN 5 MG TABLET PO ×2 (08:12→20:49)
[2018-08-26] MEDS: FAMOTIDINE 20 MG INJ IV (08:15)
[2018-08-26 08:30] LABS: AADO2 Arterial 176.9 mmHg (7.0-24.0); Allen Test ACCEPTAB; Arterial Base Excess 4.4 mmol/L (-3.0-3); Arterial Blood Gas Oxygen Sat 96.4 mmHG (95.0-100.0); Arterial COHb 0.3 % (0.0-3.0); Arterial Fraction of Oxyhgb 95.9 % (93.0-99.0); Arterial HCO3 25.4 mmol/L (22.0-26.0); Arterial MetHb 0.2 % (0.0-1.5); Arterial pCO2 26.6 mmhg (35-45); MODE VENT - AC; Site Right Radial
[2018-08-26] MEDS: HEPARIN 1000 UNITS/ML 10 ML INJ CATHETER (13:35)
[2018-08-26] MEDS: VANCOMYCIN 1 GM 250 ML IVPB (14:31)
[2018-08-26] MEDS: FENTAnyl (DRIP) 1000 mcg/100mL 100 ML IV (16:34)
[2018-08-26] MEDS: LANSOPRAZOLE 30 MG CAP GTB (17:11)
[2018-08-26] MEDS: EPOETIN 10000 UNITS/1 ML INJ (ESRD) SC (17:12)
[2018-08-27 04:55] LABS: ADD MAN DIFF? NO
[2018-08-27 04:57] LABS: BASOPHILS % 0.3 % (0.0-2.0); EOSINOPHILS # 0.2 10^3/ul (0.0-0.5); EOSINOPHILS % 3.2 % (0.0-7.0); HEMATOCRIT 32.4 % (42.0-52.0); HEMOGLOBIN 10.4 g/dl (14.0-18.0); LYMPHOCYTES # 1.4 10^3/ul (0.8-2.9); LYMPHOCYTES % 19.6 % (15.0-51.0); MEAN CORPUSCULAR HGB CONC 32.1 g/dl (32.0-37.0); MEAN CORPUSCULAR VOLUME 93.4 fl (82.0-101.0); MEAN PLATELET VOLUME 10.6 fl (7.4-10.4); MONOCYTE # 0.4 10^3/ul (0.3-0.9); MONOCYTES % 5.8 % (0.0-11.0); NEUTROPHIL # 4.9 10^3/ul (1.6-7.5); NEUTROPHILS % 70.5 % (39.0-77.0); PLATELET COUNT 249 10^3/UL (140-415); RED BLOOD COUNT 3.47 10^6/ul (4.70-6.10); RED CELL DISTRIBUTION WIDTH 17.3 % (11.5-14.5)
[2018-08-27 04:57] LABS: WHITE BLOOD COUNT 6.9 10^3/ul (4.8-10.8)
[2018-08-27 05:04] LABS: AADO2 Arterial 78.8 mmHg (7.0-24.0); Allen Test ACCEPTAB; Arterial Blood Gas Oxygen Sat 97.1 mmHG (95.0-100.0); Arterial COHb 0 % (0.0-3.0); Arterial Fraction of Oxyhgb 96.9 % (93.0-99.0); Arterial HCO3 28.1 mmol/L (22.0-26.0); Arterial MetHb 0.2 % (0.0-1.5); Arterial pCO2 36.1 mmhg (35-45); MODE VENT - AC; Site Right Radial
[2018-08-27 05:19] LABS: LACTIC ACID 1.4 mmol/L (0.5-2.0)
[2018-08-27 05:25] LABS: ALANINE AMINOTRANSFERASE 41 IU/L (13-69); ALBUMIN 2.9 g/dl (3.3-4.9); ALKALINE PHOSPHATASE 216 IU/L (42-121); ANION GAP 7 (5-13); ASPARTATE AMINO TRANSFERASE 48 IU/L (15-46); BILIRUBIN,INDIRECT 0.3 mg/dl (0-1.1); BILIRUBIN,TOTAL 0.3 mg/dl (0.2-1.3); BLOOD UREA NITROGEN 34 mg/dl (7-20); CALCIUM 8.6 mg/dl (8.4-10.2); CARBON DIOXIDE 30 mmol/L (21-31); CHLORIDE 102 mmol/L (97-110); CREATININE 3.58 mg/dl (0.61-1.24); GLUCOSE 126 mg/dl (70-220); PHOSPHORUS 3.1 mg/dl (2.5-4.9); POTASSIUM 3.7 mmol/L (3.5-5.1); SODIUM 139 mmol/L (135-144); TOTAL PROTEIN 5.8 g/dl (6.1-8.1)
[2018-08-27 05:30] LABS: CK-MB < 0.22 ng/ml (0.0-2.4)
[2018-08-27 05:34] LABS: TROPONIN-I 0.407 ng/ml (0.000-0.120)
[2018-08-27 08:24] LABS: CK INDEX 0.9; CREATINE KINASE 25 IU/L (23-200)
[2018-08-27] MEDS: CLOPIDOGREL 75 MG TAB PO (09:22)
[2018-08-27] MEDS: MULTIVITAMINS 30 ML CUP NGT (09:22)
[2018-08-27] MEDS: FAMOTIDINE 20 MG INJ IV (09:22)
[2018-08-27] MEDS: APIXABAN 5 MG TABLET PO ×2 (09:22→20:30)
[2018-08-27] MEDS: PIPER-TAZO 2.25 GM (PMX) 50 ML IVPB ×2 (09:22→20:30)
[2018-08-27] MEDS: ASCORBIC ACID 250 MG TAB NGT (09:22)
[2018-08-27] MEDS: DEXMEDETOMIDINE HCL 200 MCG in SOD CHLORIDE 0.9% 48 ML IV ×2 (14:04→22:01)
[2018-08-27] MEDS: LANSOPRAZOLE 30 MG CAP GTB (18:16)
[2018-08-28 05:12] LABS: AADO2 Arterial 60.5 mmHg (7.0-24.0); Allen Test ACCEPTAB; Arterial Base Excess 0.7 mmol/L (-3.0-3); Arterial COHb 0.3 % (0.0-3.0); Arterial Fraction of Oxyhgb 97.6 % (93.0-99.0); Arterial HCO3 23.9 mmol/L (22.0-26.0); Arterial MetHb 0.1 % (0.0-1.5); Arterial pCO2 32.8 mmhg (35-45); MODE VENT - AC; Site Right Radial
[2018-08-28 05:18] LABS: ADD MAN DIFF? NO
[2018-08-28 05:38] LABS: BASOPHILS % 0.6 % (0.0-2.0); EOSINOPHILS # 0.3 10^3/ul (0.0-0.5); HEMATOCRIT 31.3 % (42.0-52.0); HEMOGLOBIN 10.2 g/dl (14.0-18.0); LYMPHOCYTES # 1.3 10^3/ul (0.8-2.9); LYMPHOCYTES % 25.5 % (15.0-51.0); MEAN CORPUSCULAR HEMOGLOBIN 30.8 pg (29.0-33.0); MEAN CORPUSCULAR HGB CONC 32.6 g/dl (32.0-37.0); MEAN CORPUSCULAR VOLUME 94.6 fl (82.0-101.0); MEAN PLATELET VOLUME 10.8 fl (7.4-10.4); MONOCYTE # 0.5 10^3/ul (0.3-0.9); MONOCYTES % 10.2 % (0.0-11.0); PLATELET COUNT 255 10^3/UL (140-415); RED BLOOD COUNT 3.31 10^6/ul (4.70-6.10); RED CELL DISTRIBUTION WIDTH 17.2 % (11.5-14.5)
[2018-08-28 05:38] LABS: WHITE BLOOD COUNT 5.2 10^3/ul (4.8-10.8)
[2018-08-28 05:53] LABS: ANION GAP 7 (5-13); BLOOD UREA NITROGEN 51 mg/dl (7-20); CALCIUM 8.8 mg/dl (8.4-10.2); CARBON DIOXIDE 28 mmol/L (21-31); CHLORIDE 102 mmol/L (97-110); CREATININE 4.86 mg/dl (0.61-1.24); GLUCOSE 132 mg/dl (70-220); MAGNESIUM 2.6 mg/dl (1.7-2.5); POTASSIUM 3.8 mmol/L (3.5-5.1); SODIUM 137 mmol/L (135-144)
[2018-08-28] MEDS ORDERED: ALBUMIN HUMAN 25% 100 ML (10:50)
[2018-08-28] MEDS: ALBUMIN HUMAN 25% 100 ML IV (11:15)
[2018-08-28] MEDS ORDERED: PENDING SANTYL ORDER FOR WOUND CARE XX (12:00)
[2018-08-28] MEDS: HEPARIN 1000 UNITS/ML 10 ML INJ CATHETER (13:14)
[2018-08-28] MEDS: MULTIVITAMINS 30 ML CUP NGT (13:56)
[2018-08-28] MEDS: APIXABAN 5 MG TABLET PO ×2 (13:56→21:03)
[2018-08-28] MEDS: PIPER-TAZO 2.25 GM (PMX) 50 ML IVPB ×2 (13:56→21:03)
[2018-08-28] MEDS: CLOPIDOGREL 75 MG TAB PO (13:56)
[2018-08-28] MEDS: ASCORBIC ACID 250 MG TAB NGT (13:56)
[2018-08-28] MEDS: FAMOTIDINE 20 MG INJ IV (13:59)
[2018-08-28] MEDS: DEXMEDETOMIDINE HCL 200 MCG in SOD CHLORIDE 0.9% 48 ML IV ×2 (14:06→22:00)
[2018-08-28] MEDS: LANSOPRAZOLE 30 MG CAP GTB (17:36)
[2018-08-29] MEDS: DEXMEDETOMIDINE HCL 200 MCG in SOD CHLORIDE 0.9% 48 ML IV (05:13)
[2018-08-29 05:22] LABS: ADD MAN DIFF? NO
[2018-08-29 05:24] LABS: BASOPHIL # 0.1 10^3/ul (0.0-0.1); BASOPHILS % 0.6 % (0.0-2.0); EOSINOPHILS # 0.2 10^3/ul (0.0-0.5); HEMATOCRIT 32.1 % (42.0-52.0); HEMOGLOBIN 10.4 g/dl (14.0-18.0); LYMPHOCYTES # 1.6 10^3/ul (0.8-2.9); LYMPHOCYTES % 20.1 % (15.0-51.0); MEAN CORPUSCULAR HEMOGLOBIN 30.4 pg (29.0-33.0); MEAN CORPUSCULAR HGB CONC 32.4 g/dl (32.0-37.0); MEAN CORPUSCULAR VOLUME 93.9 fl (82.0-101.0); MEAN PLATELET VOLUME 10.3 fl (7.4-10.4); MONOCYTE # 0.9 10^3/ul (0.3-0.9); MONOCYTES % 10.7 % (0.0-11.0); NEUTROPHIL # 5.1 10^3/ul (1.6-7.5); PLATELET COUNT 285 10^3/UL (140-415); RED BLOOD COUNT 3.42 10^6/ul (4.70-6.10); RED CELL DISTRIBUTION WIDTH 16.7 % (11.5-14.5)
[2018-08-29 05:49] LABS: ANION GAP 13 (5-13); BLOOD UREA NITROGEN 36 mg/dl (7-20); CARBON DIOXIDE 30 mmol/L (21-31); CHLORIDE 97 mmol/L (97-110); CREATININE 3.62 mg/dl (0.61-1.24); GLUCOSE 127 mg/dl (70-220); MAGNESIUM 2.4 mg/dl (1.7-2.5); PHOSPHORUS 3.1 mg/dl (2.5-4.9); POTASSIUM 3.7 mmol/L (3.5-5.1); SODIUM 140 mmol/L (135-144)
[2018-08-29 07:30] LABS: AADO2 Arterial 80.5 mmHg (7.0-24.0); Allen Test ACCEPTAB; Arterial Base Excess 4.3 mmol/L (-3.0-3); Arterial Blood Gas Oxygen Sat 97.3 mmHG (95.0-100.0); Arterial COHb 0.2 % (0.0-3.0); Arterial MetHb 0.1 % (0.0-1.5); Arterial pCO2 34.1 mmhg (35-45); MODE VENT - AC; Site Right Radial
[2018-08-29] MEDS: APIXABAN 5 MG TABLET PO ×3 (08:11→21:00)
[2018-08-29] MEDS: CLOPIDOGREL 75 MG TAB PO (08:11)
[2018-08-29] MEDS: FAMOTIDINE 20 MG INJ IV (08:11)
[2018-08-29] MEDS: ASCORBIC ACID 250 MG TAB NGT (08:11)
[2018-08-29] MEDS: MULTIVITAMINS 30 ML CUP NGT (08:12)
[2018-08-29] MEDS: PIPER-TAZO 2.25 GM (PMX) 50 ML IVPB ×2 (08:12→20:53)
[2018-08-29 10:44] LABS: AADO2 Arterial 71.3 mmHg (7.0-24.0); Allen Test ACCEPTAB; Arterial Base Excess 2.9 mmol/L (-3.0-3); Arterial Blood Gas Oxygen Sat 97.5 mmHG (95.0-100.0); Arterial COHb 0 % (0.0-3.0); Arterial Fraction of Oxyhgb 97.4 % (93.0-99.0); Arterial HCO3 26.5 mmol/L (22.0-26.0); Arterial MetHb 0.1 % (0.0-1.5); Blood Gas PS 10; MODE VENT - AC; Site Right Radial
[2018-08-29] MEDS: EPOETIN 10000 UNITS/1 ML INJ (ESRD) SC (17:53)
[2018-08-29] MEDS: LANSOPRAZOLE 30 MG CAP GTB (17:53)
[2018-08-29] MEDS: morphine 2 MG INJ IV (21:05)
[2018-08-30 05:32] LABS: ADD MAN DIFF? NO
[2018-08-30 05:38] LABS: WHITE BLOOD COUNT 9.1 10^3/ul (4.8-10.8)
[2018-08-30 05:38] LABS: BASOPHILS % 0.4 % (0.0-2.0); EOSINOPHILS # 0.1 10^3/ul (0.0-0.5); HEMATOCRIT 33.3 % (42.0-52.0); HEMOGLOBIN 10.9 g/dl (14.0-18.0); LYMPHOCYTES # 1.3 10^3/ul (0.8-2.9); LYMPHOCYTES % 14.4 % (15.0-51.0); MEAN CORPUSCULAR HEMOGLOBIN 31.6 pg (29.0-33.0); MEAN CORPUSCULAR HGB CONC 32.7 g/dl (32.0-37.0); MEAN CORPUSCULAR VOLUME 96.5 fl (82.0-101.0); MEAN PLATELET VOLUME 10.7 fl (7.4-10.4); MONOCYTES % 10.7 % (0.0-11.0); NEUTROPHIL # 6.5 10^3/ul (1.6-7.5); NEUTROPHILS % 71.8 % (39.0-77.0); NUCLEATED RED BLOOD CELLS # 0.1 10^3/ul (0.0-0.0); NUCLEATED RED BLOOD CELLS% 0.6 /100WBC (0.0-0.0); PLATELET COUNT 347 10^3/UL (140-415); RED BLOOD COUNT 3.45 10^6/ul (4.70-6.10); RED CELL DISTRIBUTION WIDTH 16.9 % (11.5-14.5)
[2018-08-30 06:12] LABS: ANION GAP 19 (5-13); BLOOD UREA NITROGEN 56 mg/dl (7-20); CALCIUM 9.5 mg/dl (8.4-10.2); CARBON DIOXIDE 26 mmol/L (21-31); CHLORIDE 96 mmol/L (97-110); CREATININE 5.09 mg/dl (0.61-1.24); GLUCOSE 109 mg/dl (70-220); MAGNESIUM 2.6 mg/dl (1.7-2.5); PHOSPHORUS 5.2 mg/dl (2.5-4.9); POTASSIUM 4.6 mmol/L (3.5-5.1); SODIUM 141 mmol/L (135-144)
[2018-08-30 07:16] LABS: AADO2 Arterial 53.4 mmHg (7.0-24.0); Allen Test ACCEPTAB; Arterial COHb 0.7 % (0.0-3.0); Arterial Fraction of Oxyhgb 93.1 % (93.0-99.0); Arterial HCO3 17.3 mmol/L (22.0-26.0); Arterial MetHb 0.3 % (0.0-1.5); Arterial pCO2 22.6 mmhg (35-45); MODE ROOM AIR; Site Right Radial
[2018-08-30] MEDS: FAMOTIDINE 20 MG INJ IV (08:48)
[2018-08-30] MEDS: PIPER-TAZO 2.25 GM (PMX) 50 ML IVPB ×2 (08:48→21:32)
[2018-08-30] MEDS: CLOPIDOGREL 75 MG TAB PO (09:00)
[2018-08-30] MEDS: MULTIVITAMINS 30 ML CUP NGT (09:00)
[2018-08-30] MEDS: APIXABAN 5 MG TABLET PO ×2 (09:00→21:00)
[2018-08-30] MEDS: ASCORBIC ACID 250 MG TAB NGT (09:00)
[2018-08-30] MEDS: HEPARIN 1000 UNITS/ML 10 ML INJ CATHETER (13:19)
[2018-08-30] MEDS: LIDOCAINE 1% (MPF) 5 ML VIAL (16:46)
[2018-08-30] MEDS: LANSOPRAZOLE 30 MG CAP GTB (17:13)
[2018-08-30 17:43] LABS: FLD PMN% 39.3 %; FLD RBC 60000 /uL; FLD WBC 848 /cmm
[2018-08-30 17:49] LABS: FLD TYPE THORACENTHESIS
[2018-08-30 17:49] LABS: FLD CLARITY CLOUDY; FLD COLOR RED; FLD MN% 60.7 %
[2018-08-30 17:52] LABS: FLUID GLUCOSE 90 mg/dl; FLUID LD 629 U/L; FLUID TOTAL PROTEIN 2.4 g/dl; FLUID TYPE THORACENTESIS FLUID
[2018-08-31 06:58] LABS: ADD MAN DIFF? NO
[2018-08-31 07:02] LABS: BASOPHIL # 0.1 10^3/ul (0.0-0.1); BASOPHILS % 0.6 % (0.0-2.0); EOSINOPHILS # 0.1 10^3/ul (0.0-0.5); EOSINOPHILS % 0.7 % (0.0-7.0); HEMATOCRIT 36.8 % (42.0-52.0); HEMOGLOBIN 12.1 g/dl (14.0-18.0); LYMPHOCYTES # 1.4 10^3/ul (0.8-2.9); LYMPHOCYTES % 14.6 % (15.0-51.0); MEAN CORPUSCULAR HEMOGLOBIN 31.4 pg (29.0-33.0); MEAN CORPUSCULAR HGB CONC 32.9 g/dl (32.0-37.0); MEAN CORPUSCULAR VOLUME 95.6 fl (82.0-101.0); MEAN PLATELET VOLUME 10.8 fl (7.4-10.4); MONOCYTE # 0.5 10^3/ul (0.3-0.9); MONOCYTES % 5.4 % (0.0-11.0); NEUTROPHIL # 7.5 10^3/ul (1.6-7.5); NEUTROPHILS % 76.4 % (39.0-77.0); NUCLEATED RED BLOOD CELLS # 0.3 10^3/ul (0.0-0.0); NUCLEATED RED BLOOD CELLS% 3.4 /100WBC (0.0-0.0); PLATELET COUNT 382 10^3/UL (140-415); RED BLOOD COUNT 3.85 10^6/ul (4.70-6.10); RED CELL DISTRIBUTION WIDTH 17.6 % (11.5-14.5)
[2018-08-31 07:02] LABS: WHITE BLOOD COUNT 9.8 10^3/ul (4.8-10.8)
[2018-08-31 07:33] LABS: ANION GAP 19 (5-13); BLOOD UREA NITROGEN 55 mg/dl (7-20); CALCIUM 9.7 mg/dl (8.4-10.2); CARBON DIOXIDE 26 mmol/L (21-31); CHLORIDE 98 mmol/L (97-110); CREATININE 4.76 mg/dl (0.61-1.24); GLUCOSE 113 mg/dl (70-220); MAGNESIUM 2.6 mg/dl (1.7-2.5); PHOSPHORUS 6.9 mg/dl (2.5-4.9); POTASSIUM 4.9 mmol/L (3.5-5.1); SODIUM 143 mmol/L (135-144)
[2018-08-31 08:21] LABS: AADO2 Arterial 70.8 mmHg (7.0-24.0); Allen Test ACCEPTAB; Arterial Base Excess -0.6 mmol/L (-3.0-3); Arterial Blood Gas Oxygen Sat 96.9 mmHG (95.0-100.0); Arterial COHb 0.1 % (0.0-3.0); Arterial Fraction of Oxyhgb 96.8 % (93.0-99.0); Arterial HCO3 22.6 mmol/L (22.0-26.0); Arterial MetHb 0 % (0.0-1.5); Arterial pCO2 32.9 mmhg (35-45); MODE NASAL CANNULA; Site Right Radial
[2018-08-31] MEDS: ASCORBIC ACID 250 MG TAB NGT (09:00)
[2018-08-31] MEDS: MULTIVITAMINS 30 ML CUP NGT (09:00)
[2018-08-31] MEDS: APIXABAN 5 MG TABLET PO ×2 (09:00→21:00)
[2018-08-31] MEDS: FAMOTIDINE 20 MG INJ IV (09:00)
[2018-08-31] MEDS: CLOPIDOGREL 75 MG TAB PO (09:00)
[2018-08-31] MEDS: PIPER-TAZO 2.25 GM (PMX) 50 ML IVPB (09:03)
[2018-09-01] MEDS: FAMOTIDINE 20 MG INJ IV (08:27)
[2018-09-01] MEDS: CLOPIDOGREL 75 MG TAB PO (09:00)
[2018-09-01] MEDS: BENAZEPRIL 5 MG TAB PO (09:00)
[2018-09-01] MEDS: ASCORBIC ACID 250 MG TAB NGT (09:00)
[2018-09-01] MEDS: MULTIVITAMINS 30 ML CUP NGT (09:00)
[2018-09-01] MEDS: APIXABAN 5 MG TABLET PO ×2 (09:00→20:55)
[2018-09-01] MEDS: HEPARIN 1000 UNITS/ML 10 ML INJ CATHETER (22:11)
[2018-09-02 06:11] LABS: ADD MAN DIFF? NO
[2018-09-02 06:18] LABS: BASOPHIL # 0.1 10^3/ul (0.0-0.1); BASOPHILS % 0.7 % (0.0-2.0); EOSINOPHILS # 0.2 10^3/ul (0.0-0.5); EOSINOPHILS % 1.3 % (0.0-7.0); HEMATOCRIT 40.9 % (42.0-52.0); HEMOGLOBIN 13.3 g/dl (14.0-18.0); LYMPHOCYTES # 1.6 10^3/ul (0.8-2.9); MEAN CORPUSCULAR HEMOGLOBIN 30.9 pg (29.0-33.0); MEAN CORPUSCULAR HGB CONC 32.5 g/dl (32.0-37.0); MEAN CORPUSCULAR VOLUME 95.1 fl (82.0-101.0); MEAN PLATELET VOLUME 10.7 fl (7.4-10.4); MONOCYTE # 0.7 10^3/ul (0.3-0.9); MONOCYTES % 5.8 % (0.0-11.0); NEUTROPHIL # 9.3 10^3/ul (1.6-7.5); NEUTROPHILS % 77.5 % (39.0-77.0); NUCLEATED RED BLOOD CELLS # 0.5 10^3/ul (0.0-0.0); NUCLEATED RED BLOOD CELLS% 4.3 /100WBC (0.0-0.0); PLATELET COUNT 408 10^3/UL (140-415); RED CELL DISTRIBUTION WIDTH 17.8 % (11.5-14.5)
[2018-09-02 06:52] LABS: ANION GAP 16 (5-13); BLOOD UREA NITROGEN 60 mg/dl (7-20); CALCIUM 9.6 mg/dl (8.4-10.2); CARBON DIOXIDE 26 mmol/L (21-31); CHLORIDE 100 mmol/L (97-110); CREATININE 5.43 mg/dl (0.61-1.24); GLUCOSE 90 mg/dl (70-220); MAGNESIUM 2.6 mg/dl (1.7-2.5); PHOSPHORUS 7.2 mg/dl (2.5-4.9); POTASSIUM 4.4 mmol/L (3.5-5.1); SODIUM 142 mmol/L (135-144)
[2018-09-02] MEDS: MULTIVITAMINS 30 ML CUP NGT (09:00)
[2018-09-02] MEDS: ASCORBIC ACID 250 MG TAB NGT (09:00)
[2018-09-02] MEDS: CLOPIDOGREL 75 MG TAB PO (09:00)
[2018-09-02] MEDS: APIXABAN 5 MG TABLET PO ×2 (09:00→20:33)
[2018-09-02] MEDS: BENAZEPRIL 5 MG TAB PO (09:00)
[2018-09-02] MEDS: FAMOTIDINE 20 MG INJ IV (09:29)
[2018-09-02] MEDS: SEVELAMER CARBONATE 2.4 GM PKT GTB ×3 (11:50→18:06)
[2018-09-02] MEDS: LEVOFLOXACIN 750MG/D5W (PMX) 150 ML IVPB (14:30)
[2018-09-03 06:54] LABS: ADD MAN DIFF? NO
[2018-09-03 06:58] LABS: WHITE BLOOD COUNT 12.1 10^3/ul (4.8-10.8)
[2018-09-03 06:58] LABS: BASOPHIL # 0.1 10^3/ul (0.0-0.1); BASOPHILS % 0.5 % (0.0-2.0); EOSINOPHILS # 0.2 10^3/ul (0.0-0.5); HEMATOCRIT 39.6 % (42.0-52.0); LYMPHOCYTES # 1.3 10^3/ul (0.8-2.9); LYMPHOCYTES % 10.3 % (15.0-51.0); MEAN CORPUSCULAR HEMOGLOBIN 31.2 pg (29.0-33.0); MEAN CORPUSCULAR HGB CONC 32.8 g/dl (32.0-37.0); MEAN PLATELET VOLUME 10.8 fl (7.4-10.4); MONOCYTE # 0.9 10^3/ul (0.3-0.9); MONOCYTES % 7.7 % (0.0-11.0); NEUTROPHIL # 9.5 10^3/ul (1.6-7.5); NEUTROPHILS % 78.2 % (39.0-77.0); NUCLEATED RED BLOOD CELLS # 0.4 10^3/ul (0.0-0.0); PLATELET COUNT 399 10^3/UL (140-415); RED BLOOD COUNT 4.17 10^6/ul (4.70-6.10); RED CELL DISTRIBUTION WIDTH 17.7 % (11.5-14.5)
[2018-09-03 07:20] LABS: ANION GAP 17 (5-13); BLOOD UREA NITROGEN 102 mg/dl (7-20); CALCIUM 9.5 mg/dl (8.4-10.2); CARBON DIOXIDE 24 mmol/L (21-31); CHLORIDE 101 mmol/L (97-110); GLUCOSE 134 mg/dl (70-220); POTASSIUM 4.2 mmol/L (3.5-5.1); SODIUM 142 mmol/L (135-144)
[2018-09-03] MEDS: SEVELAMER CARBONATE 2.4 GM PKT GTB ×4 (07:35→17:06)
[2018-09-03] MEDS: FAMOTIDINE 20 MG INJ IV (08:53)
[2018-09-03] MEDS: MULTIVITAMINS 30 ML CUP NGT (08:56)
[2018-09-03] MEDS: MULTIVIT/CA CARB/B CMPLX/FA TAB NGT (08:56)
[2018-09-03] MEDS: APIXABAN 5 MG TABLET PO ×2 (08:56→21:08)
[2018-09-03] MEDS: CLOPIDOGREL 75 MG TAB PO (08:57)
[2018-09-03] MEDS: BENAZEPRIL 5 MG TAB PO (09:00)
[2018-09-03] MEDS: ALBUMIN HUMAN 25% 100 ML IV ×2 (11:19→13:02)
[2018-09-03] MEDS: HEPARIN 1000 UNITS/ML 10 ML INJ CATHETER (13:59)
[2018-09-03] MEDS: GUAIFENESIN 20 MG/ML 5ML CUP NGT (17:06)
[2018-09-04 06:44] LABS: ADD MAN DIFF? NO
[2018-09-04 06:49] LABS: WHITE BLOOD COUNT 11.8 10^3/ul (4.8-10.8)
[2018-09-04 06:49] LABS: BASOPHIL # 0.1 10^3/ul (0.0-0.1); BASOPHILS % 0.6 % (0.0-2.0); EOSINOPHILS # 0.3 10^3/ul (0.0-0.5); EOSINOPHILS % 2.2 % (0.0-7.0); HEMATOCRIT 39.9 % (42.0-52.0); HEMOGLOBIN 13.2 g/dl (14.0-18.0); LYMPHOCYTES # 1.6 10^3/ul (0.8-2.9); LYMPHOCYTES % 13.9 % (15.0-51.0); MEAN CORPUSCULAR HEMOGLOBIN 30.8 pg (29.0-33.0); MEAN CORPUSCULAR HGB CONC 33.1 g/dl (32.0-37.0); MEAN CORPUSCULAR VOLUME 93.2 fl (82.0-101.0); MEAN PLATELET VOLUME 10.7 fl (7.4-10.4); MONOCYTE # 1.1 10^3/ul (0.3-0.9); MONOCYTES % 9.2 % (0.0-11.0); NEUTROPHIL # 8.6 10^3/ul (1.6-7.5); NEUTROPHILS % 73.2 % (39.0-77.0); NUCLEATED RED BLOOD CELLS # 0.1 10^3/ul (0.0-0.0); NUCLEATED RED BLOOD CELLS% 1.2 /100WBC (0.0-0.0); PLATELET COUNT 356 10^3/UL (140-415); RED BLOOD COUNT 4.28 10^6/ul (4.70-6.10); RED CELL DISTRIBUTION WIDTH 18.5 % (11.5-14.5)
[2018-09-04 07:08] LABS: ANION GAP 18 (5-13); BLOOD UREA NITROGEN 69 mg/dl (7-20); CALCIUM 9.7 mg/dl (8.4-10.2); CARBON DIOXIDE 26 mmol/L (21-31); CHLORIDE 96 mmol/L (97-110); CREATININE 5.19 mg/dl (0.61-1.24); GLUCOSE 131 mg/dl (70-220); MAGNESIUM 2.6 mg/dl (1.7-2.5); PHOSPHORUS 5.2 mg/dl (2.5-4.9); POTASSIUM 3.9 mmol/L (3.5-5.1); SODIUM 140 mmol/L (135-144)
[2018-09-04] MEDS: CLOPIDOGREL 75 MG TAB PO (11:40)
[2018-09-04] MEDS: MULTIVIT/CA CARB/B CMPLX/FA TAB NGT (11:40)
[2018-09-04] MEDS: FAMOTIDINE 20 MG INJ IV (11:41)
[2018-09-04] MEDS: APIXABAN 5 MG TABLET PO ×2 (11:42→21:13)
[2018-09-04] MEDS: SEVELAMER CARBONATE 2.4 GM PKT GTB ×3 (11:42→19:09)
[2018-09-04] MEDS: BENAZEPRIL 5 MG TAB PO (11:46)
[2018-09-04] MEDS ORDERED: LEVOFLOXACIN 500MG/D5W (PMX) 100 ML IVPB (14:30)
[2018-09-04] MEDS: ACETYLCYSTEINE 20% 4 ML VIAL NEB (22:46)
[2018-09-04] MEDS: ALBUTEROL 0.083% (NEB) 2.5 MG/3 ML AMP NEB (22:46)
[2018-09-05 06:52] LABS: ADD MAN DIFF? NO
[2018-09-05 06:57] LABS: BASOPHIL # 0.1 10^3/ul (0.0-0.1); BASOPHILS % 0.4 % (0.0-2.0); EOSINOPHILS # 0.4 10^3/ul (0.0-0.5); EOSINOPHILS % 2.1 % (0.0-7.0); HEMATOCRIT 41.5 % (42.0-52.0); HEMOGLOBIN 13.7 g/dl (14.0-18.0); LYMPHOCYTES # 1.3 10^3/ul (0.8-2.9); LYMPHOCYTES % 7.6 % (15.0-51.0); MEAN CORPUSCULAR HEMOGLOBIN 31.3 pg (29.0-33.0); MEAN CORPUSCULAR VOLUME 94.7 fl (82.0-101.0); MEAN PLATELET VOLUME 10.9 fl (7.4-10.4); MONOCYTE # 1.2 10^3/ul (0.3-0.9); MONOCYTES % 6.9 % (0.0-11.0); NEUTROPHILS % 82.2 % (39.0-77.0); NUCLEATED RED BLOOD CELLS% 0.2 /100WBC (0.0-0.0); PLATELET COUNT 330 10^3/UL (140-415); RED BLOOD COUNT 4.38 10^6/ul (4.70-6.10); RED CELL DISTRIBUTION WIDTH 18.8 % (11.5-14.5)
[2018-09-05 07:31] LABS: ANION GAP 22 (5-13); BLOOD UREA NITROGEN 118 mg/dl (7-20); CALCIUM 9.6 mg/dl (8.4-10.2); CARBON DIOXIDE 24 mmol/L (21-31); CHLORIDE 94 mmol/L (97-110); CREATININE 7.39 mg/dl (0.61-1.24); GLUCOSE 95 mg/dl (70-220); MAGNESIUM 3.1 mg/dl (1.7-2.5); PHOSPHORUS 8.1 mg/dl (2.5-4.9); POTASSIUM 4.5 mmol/L (3.5-5.1); SODIUM 140 mmol/L (135-144)
[2018-09-05] MEDS ORDERED: ALBUTEROL/IPRATROPIUM (NEB) 3 ML AMP HHN (08:00)
[2018-09-05] MEDS: BENAZEPRIL 5 MG TAB PO (09:00)
[2018-09-05] MEDS: ALBUTEROL/IPRATROPIUM (NEB) 3 ML AMP HHN ×3 (09:08→19:22)
[2018-09-05] MEDS: ACETYLCYSTEINE 20% 4 ML VIAL NEB ×4 (09:09→19:22)
[2018-09-05] MEDS: MULTIVIT/CA CARB/B CMPLX/FA TAB NGT (10:37)
[2018-09-05] MEDS: CLOPIDOGREL 75 MG TAB PO (10:37)
[2018-09-05] MEDS: SEVELAMER CARBONATE 2.4 GM PKT GTB ×3 (10:37→18:28)
[2018-09-05] MEDS: FAMOTIDINE 20 MG INJ IV (10:37)
[2018-09-05] MEDS: CEFEPIME 1GM/50 ML (PMX) 50 ML IVPB (10:38)
[2018-09-05] MEDS: APIXABAN 5 MG TABLET PO ×2 (10:40→20:53)
[2018-09-05] MEDS: EPOETIN ALFA-EPBX (ESRD) 10,000 UNIT/ML VIAL SC (19:07)
[2018-09-06] MEDS: ALBUTEROL/IPRATROPIUM (NEB) 3 ML AMP HHN ×4 (01:10→20:37)
[2018-09-06] MEDS: ACETYLCYSTEINE 20% 4 ML VIAL NEB ×4 (01:10→20:38)
[2018-09-06 06:53] LABS: ADD MAN DIFF? NO
[2018-09-06 06:55] LABS: WHITE BLOOD COUNT 13.7 10^3/ul (4.8-10.8)
[2018-09-06 06:55] LABS: BASOPHILS % 0.3 % (0.0-2.0); EOSINOPHILS # 0.3 10^3/ul (0.0-0.5); EOSINOPHILS % 2.3 % (0.0-7.0); HEMATOCRIT 37.7 % (42.0-52.0); HEMOGLOBIN 12.5 g/dl (14.0-18.0); LYMPHOCYTES # 1.4 10^3/ul (0.8-2.9); LYMPHOCYTES % 9.9 % (15.0-51.0); MEAN CORPUSCULAR HEMOGLOBIN 31.3 pg (29.0-33.0); MEAN CORPUSCULAR HGB CONC 33.2 g/dl (32.0-37.0); MEAN CORPUSCULAR VOLUME 94.5 fl (82.0-101.0); MEAN PLATELET VOLUME 11.1 fl (7.4-10.4); MONOCYTE # 1.3 10^3/ul (0.3-0.9); MONOCYTES % 9.5 % (0.0-11.0); NEUTROPHIL # 10.6 10^3/ul (1.6-7.5); NEUTROPHILS % 77.2 % (39.0-77.0); PLATELET COUNT 265 10^3/UL (140-415); RED BLOOD COUNT 3.99 10^6/ul (4.70-6.10)
[2018-09-06 07:27] LABS: ANION GAP 18 (5-13); BLOOD UREA NITROGEN 110 mg/dl (7-20); CARBON DIOXIDE 22 mmol/L (21-31); CHLORIDE 96 mmol/L (97-110); CREATININE 6.74 mg/dl (0.61-1.24); GLUCOSE 139 mg/dl (70-220); MAGNESIUM 2.9 mg/dl (1.7-2.5); PHOSPHORUS 10.2 mg/dl (2.5-4.9); POTASSIUM 4.2 mmol/L (3.5-5.1); SODIUM 136 mmol/L (135-144)
[2018-09-06] MEDS: BENAZEPRIL 5 MG TAB PO (09:00)
[2018-09-06] MEDS: CLOPIDOGREL 75 MG TAB PO (09:14)
[2018-09-06] MEDS: SEVELAMER CARBONATE 2.4 GM PKT GTB ×2 (09:14→11:55)
[2018-09-06] MEDS: FAMOTIDINE 20 MG INJ IV (09:14)
[2018-09-06] MEDS: APIXABAN 5 MG TABLET PO (09:14)
[2018-09-07] MEDS: ACETYLCYSTEINE 20% 4 ML VIAL NEB ×4 (02:40→20:28)
[2018-09-07] MEDS: ALBUTEROL/IPRATROPIUM (NEB) 3 ML AMP HHN ×4 (02:40→20:28)
[2018-09-07] MEDS: FAMOTIDINE 20 MG INJ IV (08:12)
[2018-09-07] MEDS ORDERED: ARTIFICIAL TEARS 15 ML OPH BOTH EYES (14:30)
[2018-09-08] MEDS: ALBUTEROL/IPRATROPIUM (NEB) 3 ML AMP HHN ×4 (02:57→19:49)
[2018-09-08] MEDS: ACETYLCYSTEINE 20% 4 ML VIAL NEB ×4 (02:58→19:49)
[2018-09-08] MEDS: ATROPINE SULFATE 1% 5ML SL (04:07)
[2018-09-08] MEDS: FAMOTIDINE 20 MG INJ IV (08:06)
[2018-09-08 11:07] LABS: ADD MAN DIFF? NO
[2018-09-08 11:12] LABS: WHITE BLOOD COUNT 10.1 10^3/ul (4.8-10.8)
[2018-09-08 11:12] LABS: BASOPHILS % 0.3 % (0.0-2.0); EOSINOPHILS # 0.3 10^3/ul (0.0-0.5); HEMOGLOBIN 12.2 g/dl (14.0-18.0); LYMPHOCYTES # 1.1 10^3/ul (0.8-2.9); LYMPHOCYTES % 11.3 % (15.0-51.0); MEAN CORPUSCULAR HEMOGLOBIN 31.9 pg (29.0-33.0); MEAN CORPUSCULAR HGB CONC 33.9 g/dl (32.0-37.0); MONOCYTE # 1.3 10^3/ul (0.3-0.9); MONOCYTES % 12.6 % (0.0-11.0); NEUTROPHIL # 7.3 10^3/ul (1.6-7.5); NEUTROPHILS % 71.9 % (39.0-77.0); PLATELET COUNT 258 10^3/UL (140-415); RED BLOOD COUNT 3.83 10^6/ul (4.70-6.10); RED CELL DISTRIBUTION WIDTH 18.9 % (11.5-14.5)
[2018-09-08 11:28] LABS: ALANINE AMINOTRANSFERASE 426 IU/L (13-69); ALBUMIN 3.7 g/dl (3.3-4.9); ALBUMIN/GLOBULIN RATIO 1.12; ALKALINE PHOSPHATASE 125 IU/L (42-121); ANION GAP 28 (5-13); ASPARTATE AMINO TRANSFERASE 52 IU/L (15-46); BILIRUBIN,INDIRECT 0.4 mg/dl (0-1.1); BILIRUBIN,TOTAL 1.1 mg/dl (0.2-1.3); CALCIUM 9.2 mg/dl (8.4-10.2); CARBON DIOXIDE 15 mmol/L (21-31); CHLORIDE 94 mmol/L (97-110); CREATININE 10.06 mg/dl (0.61-1.24); GLUCOSE 91 mg/dl (70-220); MAGNESIUM 3.3 mg/dl (1.7-2.5); POTASSIUM 5.1 mmol/L (3.5-5.1); SODIUM 137 mmol/L (135-144)
[2018-09-08 12:32] LABS: BLOOD UREA NITROGEN 185 mg/dl (7-20)
[2018-09-08 12:34] LABS: PHOSPHORUS 16.5 mg/dl (2.5-4.9)
[2018-09-09] MEDS: ALBUTEROL/IPRATROPIUM (NEB) 3 ML AMP HHN ×4 (01:05→19:06)
[2018-09-09] MEDS: ACETYLCYSTEINE 20% 4 ML VIAL NEB ×4 (01:05→19:06)
[2018-09-09] MEDS: morphine 2 MG INJ IV ×3 (03:07→22:52)
[2018-09-09 05:41] LABS: ADD MAN DIFF? NO
[2018-09-09 05:47] LABS: BASOPHILS % 0.3 % (0.0-2.0); EOSINOPHILS # 0.1 10^3/ul (0.0-0.5); EOSINOPHILS % 1.3 % (0.0-7.0); HEMATOCRIT 36.8 % (42.0-52.0); HEMOGLOBIN 12.5 g/dl (14.0-18.0); LYMPHOCYTES # 0.8 10^3/ul (0.8-2.9); LYMPHOCYTES % 8.9 % (15.0-51.0); MEAN CORPUSCULAR HEMOGLOBIN 31.9 pg (29.0-33.0); MEAN CORPUSCULAR VOLUME 93.9 fl (82.0-101.0); MEAN PLATELET VOLUME 11.7 fl (7.4-10.4); MONOCYTE # 1.3 10^3/ul (0.3-0.9); NEUTROPHILS % 74.7 % (39.0-77.0); PLATELET COUNT 280 10^3/UL (140-415); RED BLOOD COUNT 3.92 10^6/ul (4.70-6.10); RED CELL DISTRIBUTION WIDTH 19.6 % (11.5-14.5)
[2018-09-09 05:47] LABS: WHITE BLOOD COUNT 9.3 10^3/ul (4.8-10.8)
[2018-09-09 06:17] LABS: ANION GAP 29 (5-13); CALCIUM 9.2 mg/dl (8.4-10.2); CARBON DIOXIDE 16 mmol/L (21-31); CHLORIDE 94 mmol/L (97-110); GLUCOSE 90 mg/dl (70-220); MAGNESIUM 3.5 mg/dl (1.7-2.5); POTASSIUM 5.9 mmol/L (3.5-5.1); SODIUM 139 mmol/L (135-144)
[2018-09-09 06:41] LABS: BLOOD UREA NITROGEN 202 mg/dl (7-20); PHOSPHORUS 17.7 mg/dl (2.5-4.9)
[2018-09-09] MEDS ORDERED: NA BICARBONATE 8.4% 50 ML SYG (07:00)
[2018-09-09] MEDS ORDERED: CA CHLORIDE 10% 10 ML SYRINGE (07:00)
[2018-09-09] MEDS ORDERED: AMIODARONE 150 MG INJ (07:00)
[2018-09-09] MEDS ORDERED: EPINEPHrine 0.1 MG/ML SYG (07:00)
[2018-09-09] MEDS: FAMOTIDINE 20 MG INJ IV (09:35)
[2018-09-09] MEDS: MANNITOL 25% 50 ML IV ×3 (10:32→11:52)
[2018-09-09] MEDS ORDERED: SOD CHLORIDE 0.9% 1,000 ML IV (11:41)
[2018-09-09] MEDS: MANNITOL 25% 50 ML INJ IV* (12:00)
[2018-09-09] MEDS ORDERED: HEPARIN 1000 UNITS/ML 10 ML INJ HE (12:00)
[2018-09-09] MEDS ORDERED: ALBUMIN HUMAN 25% 50 ML IV (12:00)
[2018-09-09] MEDS ORDERED: MANNITOL 25% 50 ML IV (12:00)
[2018-09-09] MEDS ORDERED: SODIUM CHLORIDE 0.9% 1L BAG IV (12:00)
[2018-09-09] MEDS ORDERED: ALBUMIN HUMAN 5% 250 ML IV (12:00)
[2018-09-09] MEDS: HEPARIN 1000 UNITS/ML 10 ML INJ CATHETER (13:31)
[2018-09-09] MEDS: ACETAMINOPHEN 650 MG SUPP PR (22:05)
[2018-09-09] MEDS: IPRATROPIUM (NEB) 0.5 MG/2.5 ML AMP NEB (23:39)
[2018-09-10] MEDS: ACETYLCYSTEINE 20% 4 ML VIAL NEB ×4 (02:17→20:00)
[2018-09-10] MEDS: ALBUTEROL/IPRATROPIUM (NEB) 3 ML AMP HHN ×4 (02:17→20:00)
[2018-09-10] MEDS: CLOPIDOGREL 75 MG TAB PO (09:00)
[2018-09-10] MEDS: FAMOTIDINE 20 MG INJ IV (09:44)
[2018-09-10 09:58] LABS: ADD MAN DIFF? NO
[2018-09-10 09:59] LABS: BASOPHILS % 0.4 % (0.0-2.0); EOSINOPHILS # 0.2 10^3/ul (0.0-0.5); EOSINOPHILS % 2.3 % (0.0-7.0); HEMATOCRIT 35.7 % (42.0-52.0); HEMOGLOBIN 11.9 g/dl (14.0-18.0); LYMPHOCYTES # 1.1 10^3/ul (0.8-2.9); LYMPHOCYTES % 13.7 % (15.0-51.0); MEAN CORPUSCULAR HEMOGLOBIN 32.3 pg (29.0-33.0); MEAN CORPUSCULAR HGB CONC 33.3 g/dl (32.0-37.0); MONOCYTE # 1.4 10^3/ul (0.3-0.9); MONOCYTES % 17.6 % (0.0-11.0); NEUTROPHIL # 5.1 10^3/ul (1.6-7.5); PLATELET COUNT 243 10^3/UL (140-415); RED BLOOD COUNT 3.68 10^6/ul (4.70-6.10); RED CELL DISTRIBUTION WIDTH 20.9 % (11.5-14.5)
[2018-09-10 09:59] LABS: WHITE BLOOD COUNT 7.8 10^3/ul (4.8-10.8)
[2018-09-10 10:20] LABS: ANION GAP 18 (5-13); BLOOD UREA NITROGEN 102 mg/dl (7-20); CALCIUM 9.1 mg/dl (8.4-10.2); CARBON DIOXIDE 24 mmol/L (21-31); CHLORIDE 100 mmol/L (97-110); CREATININE 7.53 mg/dl (0.61-1.24); GLUCOSE 93 mg/dl (70-220); MAGNESIUM 2.9 mg/dl (1.7-2.5); PHOSPHORUS 11.2 mg/dl (2.5-4.9); POTASSIUM 4.5 mmol/L (3.5-5.1); SODIUM 142 mmol/L (135-144)
[2018-09-10] MEDS: HEPARIN 1000 UNITS/ML 10 ML INJ CATHETER (15:48)
[2018-09-11] MEDS: ACETYLCYSTEINE 20% 4 ML VIAL NEB ×4 (02:41→21:06)
[2018-09-11] MEDS: ALBUTEROL/IPRATROPIUM (NEB) 3 ML AMP HHN ×4 (02:41→21:06)
[2018-09-11 05:30] LABS: ADD MAN DIFF? NO
[2018-09-11 05:49] LABS: ABNORMAL IP MESSAGE 1; BASOPHILS % 0.5 % (0.0-2.0); EOSINOPHILS # 0.2 10^3/ul (0.0-0.5); EOSINOPHILS % 2.8 % (0.0-7.0); HEMATOCRIT 38.9 % (42.0-52.0); HEMOGLOBIN 12.7 g/dl (14.0-18.0); LYMPHOCYTES # 1.3 10^3/ul (0.8-2.9); MEAN CORPUSCULAR HEMOGLOBIN 32.2 pg (29.0-33.0); MEAN CORPUSCULAR HGB CONC 32.6 g/dl (32.0-37.0); MEAN CORPUSCULAR VOLUME 98.5 fl (82.0-101.0); MEAN PLATELET VOLUME 11.3 fl (7.4-10.4); MONOCYTE # 1.7 10^3/ul (0.3-0.9); MONOCYTES % 19.4 % (0.0-11.0); NEUTROPHIL # 5.4 10^3/ul (1.6-7.5); NEUTROPHILS % 61.5 % (39.0-77.0); PLATELET COUNT 247 10^3/UL (140-415); POSITIVE DIFF @See below; RED BLOOD COUNT 3.95 10^6/ul (4.70-6.10); RED CELL DISTRIBUTION WIDTH 21.4 % (11.5-14.5)
[2018-09-11 05:49] LABS: WHITE BLOOD COUNT 8.7 10^3/ul (4.8-10.8)
[2018-09-11 06:06] LABS: ANION GAP 16 (5-13); BLOOD UREA NITROGEN 55 mg/dl (7-20); CALCIUM 9.2 mg/dl (8.4-10.2); CARBON DIOXIDE 28 mmol/L (21-31); CHLORIDE 96 mmol/L (97-110); CREATININE 4.85 mg/dl (0.61-1.24); GLUCOSE 73 mg/dl (70-220); MAGNESIUM 2.6 mg/dl (1.7-2.5); PHOSPHORUS 7.8 mg/dl (2.5-4.9); POTASSIUM 4.6 mmol/L (3.5-5.1); SODIUM 140 mmol/L (135-144)
[2018-09-11] MEDS: CLOPIDOGREL 75 MG TAB PO (09:00)
[2018-09-11] MEDS: FAMOTIDINE 20 MG INJ IV (09:01)
[2018-09-11] MEDS ORDERED: EPOETIN 10000 UNITS/1 ML INJ (ESRD) SC (17:00)
[2018-09-12] MEDS: ALBUTEROL/IPRATROPIUM (NEB) 3 ML AMP HHN ×4 (01:34→20:00)
[2018-09-12] MEDS: ACETYLCYSTEINE 20% 4 ML VIAL NEB ×4 (01:34→20:00)
[2018-09-12] MEDS: CLOPIDOGREL 75 MG TAB PO (09:00)
[2018-09-12] MEDS: FAMOTIDINE 20 MG INJ IV (10:00)
[2018-09-12] MEDS: SEVELAMER CARBONATE 800 MG TABLET PO ×2 (11:40→17:55)
[2018-09-12] MEDS: PROPOFOL 20 ML (14:30)
[2018-09-12] MEDS: morphine 2 MG INJ IV (16:40)
[2018-09-12] MEDS: SEVELAMER CARBONATE 0.8 GM PKT GTB (18:04)
[2018-09-12] MEDS: ALBUMIN HUMAN 25% 100 ML IV (20:12)
[2018-09-13] MEDS: ALBUTEROL/IPRATROPIUM (NEB) 3 ML AMP HHN ×4 (01:21→20:15)
[2018-09-13] MEDS: ACETYLCYSTEINE 20% 4 ML VIAL NEB ×4 (01:21→20:15)
[2018-09-13] MEDS: CLOPIDOGREL 75 MG TAB PO (09:02)
[2018-09-13] MEDS: SEVELAMER CARBONATE 0.8 GM PKT GTB ×3 (09:02→17:46)
[2018-09-13] MEDS: FAMOTIDINE 20 MG INJ IV (09:04)
[2018-09-13 11:53] LABS: HEPATITIS B SURFACE ANTIGEN NEGATIVE (NEGATIVE)
[2018-09-13] MEDS ORDERED: DOCUSATE SODIUM 100 MG CAP PO (12:00)
[2018-09-14] MEDS: ACETYLCYSTEINE 20% 4 ML VIAL NEB ×4 (01:07→19:31)
[2018-09-14] MEDS: ALBUTEROL/IPRATROPIUM (NEB) 3 ML AMP HHN ×4 (01:07→19:31)
[2018-09-14] MEDS: CLOPIDOGREL 75 MG TAB PO (08:50)
[2018-09-14] MEDS: FAMOTIDINE 20 MG INJ IV (08:50)
[2018-09-14] MEDS: SEVELAMER CARBONATE 0.8 GM PKT GTB ×3 (08:50→16:57)
[2018-09-14] MEDS: LISINOPRIL 5 MG TAB PO (08:51)
[2018-09-14] MEDS: APIXABAN 5 MG TABLET PO ×2 (16:57→20:15)
[2018-09-15] MEDS: ACETYLCYSTEINE 20% 4 ML VIAL NEB ×4 (01:56→20:22)
[2018-09-15] MEDS: ALBUTEROL/IPRATROPIUM (NEB) 3 ML AMP HHN ×4 (01:56→20:22)
[2018-09-15] MEDS: CLOPIDOGREL 75 MG TAB PO (09:17)
[2018-09-15] MEDS: LISINOPRIL 5 MG TAB PO (09:17)
[2018-09-15] MEDS: APIXABAN 5 MG TABLET PO ×2 (09:18→20:40)
[2018-09-15] MEDS: SEVELAMER CARBONATE 0.8 GM PKT GTB ×3 (09:18→18:04)
[2018-09-15] MEDS: FAMOTIDINE 20 MG INJ IV (09:18)
[2018-09-16] MEDS: ALBUTEROL/IPRATROPIUM (NEB) 3 ML AMP HHN ×4 (01:33→19:59)
[2018-09-16] MEDS: ACETYLCYSTEINE 20% 4 ML VIAL NEB ×4 (01:33→19:59)
[2018-09-16 05:18] LABS: ADD MAN DIFF? NO
[2018-09-16 05:19] LABS: BASOPHIL # 0.1 10^3/ul (0.0-0.1); BASOPHILS % 0.7 % (0.0-2.0); EOSINOPHILS # 0.3 10^3/ul (0.0-0.5); EOSINOPHILS % 3.1 % (0.0-7.0); HEMATOCRIT 39.2 % (42.0-52.0); HEMOGLOBIN 12.7 g/dl (14.0-18.0); LYMPHOCYTES # 1.4 10^3/ul (0.8-2.9); LYMPHOCYTES % 13.4 % (15.0-51.0); MEAN CORPUSCULAR HEMOGLOBIN 32.2 pg (29.0-33.0); MEAN CORPUSCULAR HGB CONC 32.4 g/dl (32.0-37.0); MEAN CORPUSCULAR VOLUME 99.5 fl (82.0-101.0); MONOCYTE # 1.4 10^3/ul (0.3-0.9); MONOCYTES % 12.8 % (0.0-11.0); NEUTROPHIL # 7.3 10^3/ul (1.6-7.5); PLATELET COUNT 207 10^3/UL (140-415); RED BLOOD COUNT 3.94 10^6/ul (4.70-6.10); RED CELL DISTRIBUTION WIDTH 18.6 % (11.5-14.5)
[2018-09-16 05:19] LABS: WHITE BLOOD COUNT 10.5 10^3/ul (4.8-10.8)
[2018-09-16 05:57] LABS: ANION GAP 15 (5-13); BLOOD UREA NITROGEN 91 mg/dl (7-20); CALCIUM 8.8 mg/dl (8.4-10.2); CARBON DIOXIDE 28 mmol/L (21-31); CHLORIDE 94 mmol/L (97-110); CREATININE 5.83 mg/dl (0.61-1.24); GLUCOSE 87 mg/dl (70-220); MAGNESIUM 3.1 mg/dl (1.7-2.5); PHOSPHORUS 7.1 mg/dl (2.5-4.9); SODIUM 137 mmol/L (135-144)
[2018-09-16] MEDS: LISINOPRIL 5 MG TAB PO (09:00)
[2018-09-16] MEDS: APIXABAN 5 MG TABLET PO ×2 (09:23→20:42)
[2018-09-16] MEDS: CLOPIDOGREL 75 MG TAB PO (09:23)
[2018-09-16] MEDS: FAMOTIDINE 20 MG INJ IV (09:23)
[2018-09-16] MEDS: SEVELAMER CARBONATE 0.8 GM PKT GTB ×2 (12:14→16:58)
[2018-09-16] MEDS: ALBUMIN HUMAN 25% 100 ML IV (15:23)
[2018-09-17] MEDS: ALBUTEROL/IPRATROPIUM (NEB) 3 ML AMP HHN ×4 (02:37→20:39)
[2018-09-17] MEDS: ACETYLCYSTEINE 20% 4 ML VIAL NEB ×4 (02:37→20:39)
[2018-09-17 05:17] LABS: ADD MAN DIFF? NO
[2018-09-17 05:26] LABS: BASOPHIL # 0.1 10^3/ul (0.0-0.1); BASOPHILS % 0.5 % (0.0-2.0); EOSINOPHILS # 0.3 10^3/ul (0.0-0.5); EOSINOPHILS % 3.2 % (0.0-7.0); HEMATOCRIT 35.8 % (42.0-52.0); HEMOGLOBIN 11.6 g/dl (14.0-18.0); LYMPHOCYTES # 1.1 10^3/ul (0.8-2.9); LYMPHOCYTES % 11.3 % (15.0-51.0); MEAN CORPUSCULAR HEMOGLOBIN 32.3 pg (29.0-33.0); MEAN CORPUSCULAR HGB CONC 32.4 g/dl (32.0-37.0); MEAN CORPUSCULAR VOLUME 99.7 fl (82.0-101.0); MONOCYTE # 1.4 10^3/ul (0.3-0.9); MONOCYTES % 14.3 % (0.0-11.0); NEUTROPHILS % 69.6 % (39.0-77.0); PLATELET COUNT 199 10^3/UL (140-415); RED BLOOD COUNT 3.59 10^6/ul (4.70-6.10); RED CELL DISTRIBUTION WIDTH 18.5 % (11.5-14.5)
[2018-09-17 05:59] LABS: ANION GAP 11 (5-13); BLOOD UREA NITROGEN 54 mg/dl (7-20); CALCIUM 8.9 mg/dl (8.4-10.2); CARBON DIOXIDE 32 mmol/L (21-31); CHLORIDE 94 mmol/L (97-110); CREATININE 4.07 mg/dl (0.61-1.24); GLUCOSE 107 mg/dl (70-220); MAGNESIUM 2.8 mg/dl (1.7-2.5); PHOSPHORUS 5.1 mg/dl (2.5-4.9); POTASSIUM 4.5 mmol/L (3.5-5.1); SODIUM 137 mmol/L (135-144)
[2018-09-17] MEDS: FAMOTIDINE 20 MG INJ IV (08:31)
[2018-09-17] MEDS: APIXABAN 5 MG TABLET PO ×2 (08:32→21:36)
[2018-09-17] MEDS: CLOPIDOGREL 75 MG TAB PO (08:32)
[2018-09-17] MEDS: SEVELAMER CARBONATE 0.8 GM PKT GTB ×3 (08:32→17:25)
[2018-09-17] MEDS: LISINOPRIL 5 MG TAB PO (08:33)
[2018-09-18] MEDS: ACETYLCYSTEINE 20% 4 ML VIAL NEB ×4 (02:31→19:30)
[2018-09-18] MEDS: ALBUTEROL/IPRATROPIUM (NEB) 3 ML AMP HHN ×4 (02:31→19:30)
[2018-09-18] MEDS: FAMOTIDINE 20 MG INJ IV (08:52)
[2018-09-18] MEDS: LISINOPRIL 5 MG TAB PO (08:53)
[2018-09-18] MEDS: CLOPIDOGREL 75 MG TAB PO (08:53)
[2018-09-18] MEDS: APIXABAN 5 MG TABLET PO ×2 (08:53→22:28)
[2018-09-18] MEDS: SEVELAMER CARBONATE 0.8 GM PKT GTB ×3 (08:53→17:48)
[2018-09-19] MEDS: ACETYLCYSTEINE 20% 4 ML VIAL NEB ×4 (01:42→19:36)
[2018-09-19] MEDS: ALBUTEROL/IPRATROPIUM (NEB) 3 ML AMP HHN ×4 (01:42→19:36)
[2018-09-19 05:12] LABS: ADD MAN DIFF? NO
[2018-09-19 05:20] LABS: WHITE BLOOD COUNT 9.9 10^3/ul (4.8-10.8)
[2018-09-19 05:20] LABS: BASOPHIL # 0.1 10^3/ul (0.0-0.1); BASOPHILS % 0.5 % (0.0-2.0); EOSINOPHILS # 0.2 10^3/ul (0.0-0.5); EOSINOPHILS % 2.4 % (0.0-7.0); HEMATOCRIT 36.6 % (42.0-52.0); HEMOGLOBIN 11.9 g/dl (14.0-18.0); LYMPHOCYTES # 1.2 10^3/ul (0.8-2.9); LYMPHOCYTES % 12.1 % (15.0-51.0); MEAN CORPUSCULAR HEMOGLOBIN 32.3 pg (29.0-33.0); MEAN CORPUSCULAR HGB CONC 32.5 g/dl (32.0-37.0); MEAN CORPUSCULAR VOLUME 99.5 fl (82.0-101.0); MEAN PLATELET VOLUME 10.9 fl (7.4-10.4); MONOCYTE # 1.5 10^3/ul (0.3-0.9); MONOCYTES % 15.1 % (0.0-11.0); NEUTROPHIL # 6.9 10^3/ul (1.6-7.5); NEUTROPHILS % 69.5 % (39.0-77.0); PLATELET COUNT 190 10^3/UL (140-415); RED BLOOD COUNT 3.68 10^6/ul (4.70-6.10); RED CELL DISTRIBUTION WIDTH 17.6 % (11.5-14.5)
[2018-09-19 05:49] LABS: ANION GAP 10 (5-13); BLOOD UREA NITROGEN 48 mg/dl (7-20); CALCIUM 8.8 mg/dl (8.4-10.2); CARBON DIOXIDE 29 mmol/L (21-31); CHLORIDE 99 mmol/L (97-110); CREATININE 3.38 mg/dl (0.61-1.24); GLUCOSE 97 mg/dl (70-220); MAGNESIUM 2.8 mg/dl (1.7-2.5); POTASSIUM 4.7 mmol/L (3.5-5.1); SODIUM 138 mmol/L (135-144)
[2018-09-19] MEDS: FAMOTIDINE 20 MG INJ IV (08:29)
[2018-09-19] MEDS: SEVELAMER CARBONATE 0.8 GM PKT GTB ×3 (08:29→17:37)
[2018-09-19] MEDS: CLOPIDOGREL 75 MG TAB PO (08:30)
[2018-09-19] MEDS: LISINOPRIL 5 MG TAB PO (08:30)
[2018-09-19] MEDS: APIXABAN 5 MG TABLET PO (08:30)
[2018-09-20] MEDS ORDERED: FAMOTIDINE 20 MG TAB GTB (09:00)
== END 2018-09-19 21:15 | DRG 870 ==
LOC: TEL 08-31 00:39 → E/R 17:39 → MS1 09-11 10:08 → ICU 21:16 → MS1 09-06 18:11
PROVIDERS: Family Medicine
PROC: 0BH17EZ Insertion of Endotracheal Airway into Trachea, Via Natural or Artificial Opening (ICD-10-PCS; principal; 2018-09-12 14:15)
PROC: 5A1955Z Respiratory Ventilation, Greater than 96 Consecutive Hours (ICD-10-PCS; 2018-09-12 14:15)
PROC: 0W993ZZ Drainage of Right Pleural Cavity, Percutaneous Approach (ICD-10-PCS; 2018-09-12 14:15)
PROC: 06HM33Z Insertion of Infusion Device into Right Femoral Vein, Percutaneous Approach (ICD-10-PCS; 2018-09-12 14:15)
PROC: 0DH63UZ Insertion of Feeding Device into Stomach, Percutaneous Approach (ICD-10-PCS; 2018-09-12 14:15)
PROC: 5A1D70Z Performance of Urinary Filtration, Intermittent, Less than 6 Hours Per Day (ICD-10-PCS; 2018-09-12 14:15)
DX: A41.9 Sepsis, unspecified organism (principal); J18.9 Pneumonia, unspecified organism; N18.6 End stage renal disease; G92 Toxic encephalopathy; I21.A1 Myocardial infarction type 2; J96.01 Acute respiratory failure with hypoxia; N17.0 Acute kidney failure with tubular necrosis; J69.0 Pneumonitis due to inhalation of food and vomit; R65.21 Severe sepsis with septic shock; I50.43 Acute on chronic combined systolic (congestive) and diastolic (congestive) heart failure; I82.401 Acute embolism and thrombosis of unspecified deep veins of right lower extremity; E87.0 Hyperosmolality and hypernatremia; I13.2 Hypertensive heart and chronic kidney disease with heart failure and with stage 5 chronic kidney disease, or end stage renal disease; J98.11 Atelectasis; Z99.2 Dependence on renal dialysis; E83.52 Hypercalcemia; I25.10 Atherosclerotic heart disease of native coronary artery without angina pectoris; Z79.02 Long term (current) use of antithrombotics/antiplatelets; F03.90 Unspecified dementia, unspecified severity, without behavioral disturbance, psychotic disturbance, mood disturbance, and anxiety; E87.5 Hyperkalemia; R13.10 Dysphagia, unspecified; I95.9 Hypotension, unspecified; Z66 Do not resuscitate; Z95.5 Presence of coronary angioplasty implant and graft
CPT/HCPCS: 31500; 32555; 36415; 36600; 71045; 71250; 74018; 80048; 80053; 80061; 80202; 82306; 82533; 82550; 82553; 82803; 82945; 82962; 83036; 83605; 83615; 83735; 84100; 84157; 84443; 84484; 85025; 85610; 85730; 86706; 87040-91; 87070; 87081; 87102; 87116; 87340; 88104; 88107; 88305; 89051; 90935; 92507; 92526; 92610; 93005; 93306; 94002; 94003; 94640; 94667; 94668; 94770; 96374; 96375; 97110; 97116; 97163; 97164; 97530; 99291-25

== ENCOUNTER 2018-10-10 22:32 | Inpatient (IN) | payer OTHER ==
[2018-10-10 23:37] LABS: ADD MAN DIFF? NO
[2018-10-10 23:45] LABS: WHITE BLOOD COUNT 14.6 10^3/ul (4.8-10.8)
[2018-10-10 23:45] LABS: BASOPHILS % 0.2 % (0.0-2.0); EOSINOPHILS # 0.1 10^3/ul (0.0-0.5); EOSINOPHILS % 0.6 % (0.0-7.0); HEMATOCRIT 23.8 % (42.0-52.0); HEMOGLOBIN 8.2 g/dl (14.0-18.0); LYMPHOCYTES # 1.2 10^3/ul (0.8-2.9); MEAN CORPUSCULAR HEMOGLOBIN 33.1 pg (29.0-33.0); MEAN CORPUSCULAR HGB CONC 34.5 g/dl (32.0-37.0); MEAN PLATELET VOLUME 10.8 fl (7.4-10.4); MONOCYTE # 1.4 10^3/ul (0.3-0.9); MONOCYTES % 9.6 % (0.0-11.0); NEUTROPHIL # 11.7 10^3/ul (1.6-7.5); NEUTROPHILS % 80.5 % (39.0-77.0); PLATELET COUNT 186 10^3/UL (140-415); RED BLOOD COUNT 2.48 10^6/ul (4.70-6.10); RED CELL DISTRIBUTION WIDTH 15.4 % (11.5-14.5)
[2018-10-11 00:04] LABS: ANION GAP 23 (5-13); CALCIUM 7.6 mg/dl (8.4-10.2); CARBON DIOXIDE 18 mmol/L (21-31); CHLORIDE 80 mmol/L (97-110); CREATININE 9.41 mg/dl (0.61-1.24); GLUCOSE 90 mg/dl (70-220); POTASSIUM 3.5 mmol/L (3.5-5.1); SODIUM 121 mmol/L (135-144)
[2018-10-11 00:11] LABS: BLOOD UREA NITROGEN 207 mg/dl (7-20)
[2018-10-11 00:24] LABS: TROPONIN-I 0.155 ng/ml (0.000-0.120)
[2018-10-11] MEDS ORDERED: ONDANSETRON 4 MG INJ IV (02:00)
[2018-10-11] MEDS: NACL 3% 500 ML IV (04:13)
[2018-10-11 05:43] LABS: ADD MAN DIFF? NO
[2018-10-11 05:48] LABS: WHITE BLOOD COUNT 14.5 10^3/ul (4.8-10.8)
[2018-10-11 05:48] LABS: BASOPHILS % 0.1 % (0.0-2.0); EOSINOPHILS # 0.1 10^3/ul (0.0-0.5); EOSINOPHILS % 0.5 % (0.0-7.0); HEMATOCRIT 24.2 % (42.0-52.0); HEMOGLOBIN 8.2 g/dl (14.0-18.0); LYMPHOCYTES % 6.7 % (15.0-51.0); MEAN CORPUSCULAR HEMOGLOBIN 32.5 pg (29.0-33.0); MEAN CORPUSCULAR HGB CONC 33.9 g/dl (32.0-37.0); MEAN PLATELET VOLUME 10.1 fl (7.4-10.4); MONOCYTE # 1.3 10^3/ul (0.3-0.9); MONOCYTES % 8.9 % (0.0-11.0); NEUTROPHILS % 82.7 % (39.0-77.0); PLATELET COUNT 183 10^3/UL (140-415); POSITIVE DIFF @See below; RED BLOOD COUNT 2.52 10^6/ul (4.70-6.10); RED CELL DISTRIBUTION WIDTH 15.4 % (11.5-14.5)
[2018-10-11 06:12] LABS: URIC ACID 7.1 mg/dl (3.1-7.9)
[2018-10-11 06:14] LABS: ALANINE AMINOTRANSFERASE 21 IU/L (13-69); ALBUMIN 2.3 g/dl (3.3-4.9); ALBUMIN/GLOBULIN RATIO 0.79; ALKALINE PHOSPHATASE 250 IU/L (42-121); ANION GAP 22 (5-13); ASPARTATE AMINO TRANSFERASE 39 IU/L (15-46); CALCIUM 7.5 mg/dl (8.4-10.2); CARBON DIOXIDE 16 mmol/L (21-31); CHLORIDE 86 mmol/L (97-110); CREATINE KINASE 36 IU/L (23-200); CREATININE 9.67 mg/dl (0.61-1.24); GLUCOSE 82 mg/dl (70-220); POTASSIUM 3.6 mmol/L (3.5-5.1); SODIUM 124 mmol/L (135-144); TOTAL PROTEIN 5.2 g/dl (6.1-8.1)
[2018-10-11] MEDS: SOD CHLORIDE 0.9% 250 ML IV ×2 (06:14→06:30)
[2018-10-11] MEDS: SOD CHLORIDE 0.9% 1,000 ML IV ×2 (06:14→21:31)
[2018-10-11 06:24] LABS: BLOOD UREA NITROGEN 205 mg/dl (7-20); CK INDEX 4.7; CK-MB 1.69 ng/ml (0.0-2.4); TROPONIN-I 0.145 ng/ml (0.000-0.120)
[2018-10-11] MEDS: PANTOPRAZOLE 40 MG INJ IV (06:27)
[2018-10-11] MEDS: MIDODRINE 5 MG TAB PO ×4 (06:27→20:43)
[2018-10-11] MEDS: SOD CHLORIDE 0.9% 500 ML IV (06:31)
[2018-10-11 07:05] LABS: ANISOCYTOSIS 1+ (0-0); BAND NEUTROPHILS #M 3.1 10^3/ul (0.0-0.6); BAND NEUTROPHILS % (M) 22 % (0-4); BURR CELLS 1+ (0-0); EOSINOPHILS % (M) 1 % (0-7); LYMPHOCYTES #M 1.3 10^3/ul (0.8-2.9); LYMPHOCYTES % (M) 9 % (15-51); MONOCYTE #M 1.1 10^3/ul (0.3-0.9); MONOCYTES % (M) 8 % (0-11); OVALOCYTES 1+ (0-0); PLATELET ESTIMATE NORMAL; POIKILOCYTOSIS 1+ (0-0); POLYCHROMASIA 3+ (0-0); SEG NEUT #M 9.1 10^3/ul (1.6-7.5); SEGMENTED NEUTROPHILS (M) % 60 % (39-77); SMUDGE%M 5 % (0-0)
[2018-10-11 07:43] LABS: OSMOLALITY 326 mOsm/kg (280-295)
[2018-10-11] MEDS: NORepinephrine 8MG/250 ML (PMX 250 ML IV ×2 (08:31→23:19)
[2018-10-11] MEDS: SODIUM CHLORIDE 1 GM TAB PO ×3 (09:30→21:00)
[2018-10-11] MEDS: MEMANTINE 5 MG TAB PO (09:30)
[2018-10-11] MEDS ORDERED: VANCOMYCIN IV PER PHARMACY XX (11:00)
[2018-10-11 11:26] LABS: CREATINE KINASE 71 IU/L (23-200)
[2018-10-11] MEDS: ALBUMIN HUMAN 25% 100 ML IV ×2 (11:27→19:55)
[2018-10-11] MEDS: CEFEPIME 1GM/50 ML (PMX) 50 ML IVPB (11:28)
[2018-10-11] MEDS: LACTOBACILLUS RHAMNOSUS CAP PO ×2 (11:28→21:00)
[2018-10-11 11:33] LABS: LACTIC ACID 1.9 mmol/L (0.5-2.0)
[2018-10-11 11:38] LABS: CK INDEX 4.3
[2018-10-11 11:42] LABS: CK-MB 3.04 ng/ml (0.0-2.4); TROPONIN-I 0.149 ng/ml (0.000-0.120)
[2018-10-11] MEDS: VANCOMYCIN HCL 1.5 GM in SOD CHLORIDE 0.9% 250 ML IVPB (12:46)
[2018-10-11] MEDS: VANCOMYCIN HCL 250 MG/5ML POSYG PO (15:25)
[2018-10-11] MEDS: LIDOCAINE 1% (MPF) 5 ML VIAL SC ×2 (16:00→19:00)
[2018-10-11] MEDS: EPOETIN ALFA-EPBX (ESRD) 10,000 UNIT/ML VIAL SC (17:42)
[2018-10-11 18:22] LABS: AADO2 Arterial 626.3 mmHg (7.0-24.0); Allen Test ACCEPTAB; Arterial Base Excess -23.1 mmol/L (-3.0-3); Arterial Blood Gas Oxygen Sat 59.5 mmHG (95.0-100.0); Arterial COHb 0.3 % (0.0-3.0); Arterial HCO3 8.1 mmol/L (22.0-26.0); Arterial MetHb 0.5 % (0.0-1.5); Arterial pCO2 39.5 mmhg (35-45); MODE MASK - NRB; Site Right Radial
[2018-10-11 18:24] LABS: HEPATITIS B SURFACE ANTIGEN NEGATIVE (NEGATIVE)
[2018-10-11 18:26] LABS: ADD MAN DIFF? NO
[2018-10-11 18:27] LABS: BASOPHILS % 0.1 % (0.0-2.0); HEMATOCRIT 25.2 % (42.0-52.0); HEMOGLOBIN 8.1 g/dl (14.0-18.0); LYMPHOCYTES # 1.1 10^3/ul (0.8-2.9); LYMPHOCYTES % 7.5 % (15.0-51.0); MEAN CORPUSCULAR HEMOGLOBIN 33.6 pg (29.0-33.0); MEAN CORPUSCULAR HGB CONC 32.1 g/dl (32.0-37.0); MEAN CORPUSCULAR VOLUME 104.6 fl (82.0-101.0); MEAN PLATELET VOLUME 11.1 fl (7.4-10.4); MONOCYTE # 0.8 10^3/ul (0.3-0.9); MONOCYTES % 4.9 % (0.0-11.0); NEUTROPHILS % 85.5 % (39.0-77.0); PLATELET COUNT 183 10^3/UL (140-415); POSITIVE DIFF @See below; RED BLOOD COUNT 2.41 10^6/ul (4.70-6.10); RED CELL DISTRIBUTION WIDTH 16.1 % (11.5-14.5)
[2018-10-11 18:27] LABS: WHITE BLOOD COUNT 15.2 10^3/ul (4.8-10.8)
[2018-10-11] MEDS ORDERED: NA BICARBONATE 8.4% 50 ML SYG (18:34)
[2018-10-11 18:47] LABS: ANION GAP 26 (5-13); CHLORIDE 98 mmol/L (97-110); CREATININE 9.65 mg/dl (0.61-1.24); GLUCOSE 78 mg/dl (70-220); INR 2.27; MAGNESIUM 3.2 mg/dl (1.7-2.5); PARTIAL THROMBOPLASTIN TIME 39.7 Sec (23.0-35.0); POTASSIUM 5.5 mmol/L (3.5-5.1); PROTIME 25.1 Sec (11.9-14.9); SODIUM 132 mmol/L (135-144)
[2018-10-11 18:56] LABS: BLOOD UREA NITROGEN 190 mg/dl (7-20); CARBON DIOXIDE 8 mmol/L (21-31); PHOSPHORUS 12.2 mg/dl (2.5-4.9)
[2018-10-11] MEDS: NA BICARBONATE 8.4% 50 ML SYG IV (19:04)
[2018-10-11] MEDS: MANNITOL 25% 50 ML IV ×2 (19:13→19:32)
[2018-10-11 19:40] LABS: ANISOCYTOSIS 1+ (0-0); BAND NEUTROPHILS #M 0.3 10^3/ul (0.0-0.6); BAND NEUTROPHILS % (M) 2 % (0-4); BURR CELLS 1+ (0-0); GIANT THROMBO% (M) 1 % (0-0); LYMPHOCYTES #M 1.2 10^3/ul (0.8-2.9); LYMPHOCYTES % (M) 8 % (15-51); MONOCYTE #M 0.7 10^3/ul (0.3-0.9); MONOCYTES % (M) 5 % (0-11); SEGMENTED NEUTROPHILS (M) % 85 % (39-77); SMUDGE%M 6 % (0-0)
[2018-10-11] MEDS: VASOPRESSIN 60 UNIT in DEXTROSE 5% 57 ML IV (20:30)
[2018-10-11] MEDS: PHENYLephrine 20MG IN 250 ML 250 ML IV (20:43)
[2018-10-11] MEDS: QUETIAPINE 25 MG TAB PO (21:00)
[2018-10-11] MEDS: HEPARIN 1000 UNITS/ML 10 ML INJ CATHETER (21:18)
[2018-10-12 02:13] LABS: AADO2 Arterial 633.2 mmHg (7.0-24.0); Arterial Base Excess -10.3 mmol/L (-3.0-3); Arterial Blood Gas Oxygen Sat 52.5 mmHG (95.0-100.0); Arterial COHb 0.3 % (0.0-3.0); Arterial Fraction of Oxyhgb 52.1 % (93.0-99.0); Arterial HCO3 17.1 mmol/L (22.0-26.0); Arterial MetHb 0.5 % (0.0-1.5); Arterial pCO2 44.6 mmhg (35-45); Blood Gas IEPAP 18/8; Blood Gas PS 10; MODE MASK - BIPAP; Site Right Brachial
[2018-10-12] MEDS: ALBUMIN HUMAN 25% 100 ML IV (03:00)
[2018-10-12 05:28] LABS: ABNORMAL IP MESSAGE 1; HEMATOCRIT 20.4 % (42.0-52.0); MEAN CORPUSCULAR HEMOGLOBIN 32.8 pg (29.0-33.0); MEAN CORPUSCULAR HGB CONC 32.8 g/dl (32.0-37.0); MEAN PLATELET VOLUME 11.3 fl (7.4-10.4); PLATELET COUNT 149 10^3/UL (140-415); POSITIVE DIFF @See below; RED BLOOD COUNT 2.04 10^6/ul (4.70-6.10); RED CELL DISTRIBUTION WIDTH 16.3 % (11.5-14.5)
[2018-10-12 05:28] LABS: WHITE BLOOD COUNT 10.4 10^3/ul (4.8-10.8)
[2018-10-12] MEDS: VANCOMYCIN HCL 250 MG/5ML POSYG PO ×4 (05:37→18:05)
[2018-10-12] MEDS: PANTOPRAZOLE 40 MG INJ IV (05:37)
[2018-10-12] MEDS: NORepinephrine 8MG/250 ML (PMX 250 ML IV ×3 (05:43→22:42)
[2018-10-12 05:47] LABS: ADD MAN DIFF? YES
[2018-10-12 05:48] LABS: HEMOGLOBIN 6.7 g/dl (14.0-18.0)
[2018-10-12 05:53] LABS: ANION GAP 21 (5-13); BLOOD UREA NITROGEN 117 mg/dl (7-20); CALCIUM 7.7 mg/dl (8.4-10.2); CARBON DIOXIDE 13 mmol/L (21-31); CHLORIDE 107 mmol/L (97-110); CREATININE 5.63 mg/dl (0.61-1.24); GLUCOSE 144 mg/dl (70-220); MAGNESIUM 2.3 mg/dl (1.7-2.5); PHOSPHORUS 7.9 mg/dl (2.5-4.9); POTASSIUM 3.4 mmol/L (3.5-5.1); SODIUM 141 mmol/L (135-144)
[2018-10-12] MEDS: POTASSIUM CHLORIDE 100 ML IVPB ×2 (08:00→11:42)
[2018-10-12] MEDS: VASOPRESSIN 60 UNIT in DEXTROSE 5% 57 ML IV ×2 (08:30→20:06)
[2018-10-12 08:55] LABS: ANISOCYTOSIS 1+ (0-0); BAND NEUTROPHILS #M 0.8 10^3/ul (0.0-0.6); BAND NEUTROPHILS % (M) 8 % (0-4); BURR CELLS 1+ (0-0); LYMPHOCYTES #M 0.2 10^3/ul (0.8-2.9); LYMPHOCYTES % (M) 2 % (15-51); MONOCYTE #M 0.5 10^3/ul (0.3-0.9); MONOCYTES % (M) 5 % (0-11); OVALOCYTES 1+ (0-0); PLATELET ESTIMATE NORMAL; POIKILOCYTOSIS 2+ (0-0); POLYCHROMASIA 3+ (0-0); SEG NEUT #M 8.9 10^3/ul (1.6-7.5); SEGMENTED NEUTROPHILS (M) % 85 % (39-77); SMUDGE%M 2 % (0-0)
[2018-10-12] MEDS: SODIUM CHLORIDE 1 GM TAB PO (09:00)
[2018-10-12] MEDS: MIDODRINE 5 MG TAB PO ×3 (09:00→21:52)
[2018-10-12] MEDS: MEMANTINE 5 MG TAB PO (09:00)
[2018-10-12] MEDS: LACTOBACILLUS RHAMNOSUS CAP PO ×2 (09:00→21:52)
[2018-10-12 10:12] LABS: AADO2 Arterial 412.5 mmHg (7.0-24.0); Allen Test ACCEPTAB; Arterial Blood Gas Oxygen Sat 98.9 mmHG (95.0-100.0); Arterial COHb 0.2 % (0.0-3.0); Arterial Fraction of Oxyhgb 98.3 % (93.0-99.0); Arterial HCO3 15.9 mmol/L (22.0-26.0); Arterial MetHb 0.4 % (0.0-1.5); Arterial pCO2 30.4 mmhg (35-45); Blood Gas IEPAP 20/8; Blood Gas PS 12; MODE MASK - BIPAP; Site Right Radial
[2018-10-12] MEDS: PHENYLephrine 20MG IN 250 ML 250 ML IV (11:05)
[2018-10-12] MEDS: CEFEPIME 1GM/50 ML (PMX) 50 ML IVPB (11:06)
[2018-10-12] MEDS: BALSAM PERU/CASTOR OIL 60 GM TUBE TOP ×2 (11:06→21:51)
[2018-10-12] MEDS: SOD CHLORIDE 0.9% 1,000 ML IV (14:13)
[2018-10-12] MEDS: MANNITOL 25% 50 ML IV ×2 (14:51→16:05)
[2018-10-12 16:05] LABS: IMMEDIATE SPIN CROSSMATCH 1 2
[2018-10-12] MEDS: HEPARIN 1000 UNITS/ML 10 ML INJ CATHETER (17:59)
[2018-10-12] MEDS: QUETIAPINE 25 MG TAB PO (21:52)
[2018-10-13] MEDS: VANCOMYCIN HCL 250 MG/5ML POSYG PO ×4 (00:35→18:06)
[2018-10-13] MEDS: PHENYLephrine 20MG IN 250 ML 250 ML IV ×2 (02:36→19:03)
[2018-10-13] MEDS: SOD CHLORIDE 0.9% 1,000 ML IV ×2 (02:38→16:51)
[2018-10-13 05:05] LABS: ADD MAN DIFF? NO
[2018-10-13 05:12] LABS: BASOPHILS % 0.2 % (0.0-2.0); HEMATOCRIT 27.5 % (42.0-52.0); HEMOGLOBIN 9.4 g/dl (14.0-18.0); LYMPHOCYTES # 0.7 10^3/ul (0.8-2.9); LYMPHOCYTES % 6.2 % (15.0-51.0); MEAN CORPUSCULAR HEMOGLOBIN 32.3 pg (29.0-33.0); MEAN CORPUSCULAR HGB CONC 34.2 g/dl (32.0-37.0); MEAN CORPUSCULAR VOLUME 94.5 fl (82.0-101.0); MEAN PLATELET VOLUME 11.4 fl (7.4-10.4); MONOCYTE # 0.8 10^3/ul (0.3-0.9); MONOCYTES % 7.1 % (0.0-11.0); NEUTROPHIL # 9.3 10^3/ul (1.6-7.5); NEUTROPHILS % 85.3 % (39.0-77.0); NUCLEATED RED BLOOD CELLS% 0.2 /100WBC (0.0-0.0); PLATELET COUNT 133 10^3/UL (140-415); RED BLOOD COUNT 2.91 10^6/ul (4.70-6.10); RED CELL DISTRIBUTION WIDTH 19.2 % (11.5-14.5)
[2018-10-13 05:12] LABS: WHITE BLOOD COUNT 10.9 10^3/ul (4.8-10.8)
[2018-10-13 05:37] LABS: ANION GAP 14 (5-13); BLOOD UREA NITROGEN 86 mg/dl (7-20); CARBON DIOXIDE 20 mmol/L (21-31); CHLORIDE 107 mmol/L (97-110); CREATININE 3.86 mg/dl (0.61-1.24); GLUCOSE 187 mg/dl (70-220); POTASSIUM 3.5 mmol/L (3.5-5.1); SODIUM 141 mmol/L (135-144)
[2018-10-13 05:37] LABS: VANCOMYCIN,RANDOM 12.6 ug/ml
[2018-10-13] MEDS: PANTOPRAZOLE 40 MG INJ IV (06:05)
[2018-10-13 07:27] LABS: AADO2 Arterial 88.6 mmHg (7.0-24.0); Allen Test ACCEPTAB; Arterial Base Excess -3.8 mmol/L (-3.0-3); Arterial Blood Gas Oxygen Sat 97.7 mmHG (95.0-100.0); Arterial COHb 0.2 % (0.0-3.0); Arterial Fraction of Oxyhgb 97.2 % (93.0-99.0); Arterial HCO3 20.3 mmol/L (22.0-26.0); Arterial MetHb 0.3 % (0.0-1.5); Arterial pCO2 33.6 mmhg (35-45); Blood Gas IEPAP 20/8; Blood Gas PS 12; MODE MASK - BIPAP; Site Right Radial
[2018-10-13] MEDS: NORepinephrine 8MG/250 ML (PMX 250 ML IV (07:48)
[2018-10-13] MEDS: VASOPRESSIN 60 UNIT in DEXTROSE 5% 57 ML IV ×2 (08:30→20:30)
[2018-10-13 08:49] LABS: INR 1.74; PROTIME 20.4 Sec (11.9-14.9); PT RATIO 1.6
[2018-10-13 08:50] LABS: PARTIAL THROMBOPLASTIN TIME 36.6 Sec (23.0-35.0)
[2018-10-13 09:09] LABS: CREATINE KINASE 100 IU/L (23-200)
[2018-10-13 09:12] LABS: CK INDEX 34.9
[2018-10-13] MEDS: BALSAM PERU/CASTOR OIL 60 GM TUBE TOP ×2 (09:28→21:21)
[2018-10-13] MEDS: MULTIVIT/CA CARB/B CMPLX/FA TAB NGT (09:29)
[2018-10-13] MEDS: MIDODRINE 5 MG TAB PO (09:29)
[2018-10-13] MEDS: LACTOBACILLUS RHAMNOSUS CAP PO (09:29)
[2018-10-13] MEDS: HEPARIN 1000 UNITS/ML 10 ML INJ CATHETER (11:29)
[2018-10-13] MEDS: CEFEPIME 1GM/50 ML (PMX) 50 ML IVPB (11:38)
[2018-10-13] MEDS: MIDODRINE 5 MG TAB GTB ×2 (13:33→21:20)
[2018-10-13] MEDS: VANCOMYCIN 1 GM 250 ML IVPB (16:47)
[2018-10-13] MEDS: EPOETIN ALFA-EPBX (ESRD) 10,000 UNIT/ML VIAL SC (16:53)
[2018-10-13] MEDS ORDERED: AMIKACIN 350 MG in DEXTROSE 5% 100 ML IVPB (17:30)
[2018-10-13] MEDS: metroNIDAZOLE 500 MG TAB PO ×2 (18:06→21:21)
[2018-10-13] MEDS: AMIKACIN 500 MG in DEXTROSE 5% 100 ML IVPB (18:58)
[2018-10-13] MEDS: LACTOBACILLUS RHAMNOSUS CAP GTB (21:20)
[2018-10-14] MEDS: VANCOMYCIN HCL 250 MG/5ML POSYG PO ×4 (00:24→18:58)
[2018-10-14] MEDS: metroNIDAZOLE 500 MG TAB PO ×3 (05:03→21:14)
[2018-10-14] MEDS: LANSOPRAZOLE 30 MG CAP GTB (05:03)
[2018-10-14 05:08] LABS: ADD MAN DIFF? NO
[2018-10-14 05:10] LABS: WHITE BLOOD COUNT 12.4 10^3/ul (4.8-10.8)
[2018-10-14 05:10] LABS: BASOPHILS % 0.2 % (0.0-2.0); EOSINOPHILS # 0.2 10^3/ul (0.0-0.5); EOSINOPHILS % 1.2 % (0.0-7.0); HEMATOCRIT 28.2 % (42.0-52.0); HEMOGLOBIN 9.4 g/dl (14.0-18.0); LYMPHOCYTES # 0.9 10^3/ul (0.8-2.9); LYMPHOCYTES % 7.3 % (15.0-51.0); MEAN CORPUSCULAR HGB CONC 33.3 g/dl (32.0-37.0); MEAN CORPUSCULAR VOLUME 95.9 fl (82.0-101.0); MEAN PLATELET VOLUME 11.1 fl (7.4-10.4); MONOCYTE # 0.9 10^3/ul (0.3-0.9); MONOCYTES % 6.9 % (0.0-11.0); NEUTROPHIL # 10.3 10^3/ul (1.6-7.5); NEUTROPHILS % 83.3 % (39.0-77.0); NUCLEATED RED BLOOD CELLS% 0.2 /100WBC (0.0-0.0); PLATELET COUNT 102 10^3/UL (140-415); RED BLOOD COUNT 2.94 10^6/ul (4.70-6.10); RED CELL DISTRIBUTION WIDTH 19.9 % (11.5-14.5)
[2018-10-14 05:40] LABS: MAGNESIUM 1.9 mg/dl (1.7-2.5)
[2018-10-14 05:40] LABS: PHOSPHORUS 1.4 mg/dl (2.5-4.9)
[2018-10-14 05:42] LABS: ANION GAP 10 (5-13); BLOOD UREA NITROGEN 68 mg/dl (7-20); CALCIUM 7.8 mg/dl (8.4-10.2); CARBON DIOXIDE 23 mmol/L (21-31); CHLORIDE 106 mmol/L (97-110); CREATININE 2.76 mg/dl (0.61-1.24); GLUCOSE 139 mg/dl (70-220); SODIUM 139 mmol/L (135-144)
[2018-10-14] MEDS: VASOPRESSIN 60 UNIT in DEXTROSE 5% 57 ML IV ×2 (08:30→20:24)
[2018-10-14] MEDS: POTASSIUM CHLORIDE 100 ML IVPB ×2 (08:53→10:52)
[2018-10-14] MEDS: MIDODRINE 5 MG TAB GTB ×3 (09:05→21:14)
[2018-10-14] MEDS: MULTIVIT/CA CARB/B CMPLX/FA TAB NGT (09:05)
[2018-10-14] MEDS: LACTOBACILLUS RHAMNOSUS CAP GTB ×2 (09:08→21:14)
[2018-10-14] MEDS: BALSAM PERU/CASTOR OIL 60 GM TUBE TOP ×2 (09:09→21:14)
[2018-10-14] MEDS ORDERED: POTASSIUM CHLORIDE 20 MEQ POWDER FOR ORAL SOLN GTB (12:00)
[2018-10-14] MEDS: SODIUM PHOSPHATE 15 MMOL in SOD CHLORIDE 0.9% 250 ML IVPB (13:53)
[2018-10-15] MEDS: VANCOMYCIN HCL 250 MG/5ML POSYG PO ×4 (00:19→18:18)
[2018-10-15 02:36] LABS: ANION GAP 10 (5-13); BLOOD UREA NITROGEN 86 mg/dl (7-20); CALCIUM 7.8 mg/dl (8.4-10.2); CARBON DIOXIDE 22 mmol/L (21-31); CHLORIDE 108 mmol/L (97-110); CREATININE 3.46 mg/dl (0.61-1.24); GLUCOSE 135 mg/dl (70-220); MAGNESIUM 1.9 mg/dl (1.7-2.5); POTASSIUM 3.4 mmol/L (3.5-5.1); SODIUM 140 mmol/L (135-144)
[2018-10-15 02:50] LABS: CK-MB 4.31 ng/ml (0.0-2.4)
[2018-10-15 05:10] LABS: AADO2 Arterial 86.6 mmHg (7.0-24.0); Allen Test ACCEPTAB; Arterial Base Excess -3.2 mmol/L (-3.0-3); Arterial Blood Gas Oxygen Sat 94.6 mmHG (95.0-100.0); Arterial COHb 0.3 % (0.0-3.0); Arterial HCO3 20.3 mmol/L (22.0-26.0); Arterial MetHb 0.3 % (0.0-1.5); Arterial pCO2 30.8 mmhg (35-45); MODE NASAL CANNULA; Site Right Radial
[2018-10-15 05:38] LABS: ADD MAN DIFF? NO
[2018-10-15 05:49] LABS: WHITE BLOOD COUNT 10.8 10^3/ul (4.8-10.8)
[2018-10-15 05:49] LABS: BASOPHILS % 0.1 % (0.0-2.0); EOSINOPHILS # 0.2 10^3/ul (0.0-0.5); EOSINOPHILS % 1.5 % (0.0-7.0); HEMATOCRIT 28.4 % (42.0-52.0); HEMOGLOBIN 9.3 g/dl (14.0-18.0); LYMPHOCYTES # 1.3 10^3/ul (0.8-2.9); LYMPHOCYTES % 11.6 % (15.0-51.0); MEAN CORPUSCULAR HEMOGLOBIN 32.2 pg (29.0-33.0); MEAN CORPUSCULAR HGB CONC 32.7 g/dl (32.0-37.0); MEAN CORPUSCULAR VOLUME 98.3 fl (82.0-101.0); MEAN PLATELET VOLUME 11.7 fl (7.4-10.4); MONOCYTE # 0.9 10^3/ul (0.3-0.9); MONOCYTES % 8.7 % (0.0-11.0); NEUTROPHIL # 8.2 10^3/ul (1.6-7.5); NEUTROPHILS % 76.1 % (39.0-77.0); NUCLEATED RED BLOOD CELLS # 0.1 10^3/ul (0.0-0.0); NUCLEATED RED BLOOD CELLS% 0.6 /100WBC (0.0-0.0); PLATELET COUNT 111 10^3/UL (140-415); RED BLOOD COUNT 2.89 10^6/ul (4.70-6.10); RED CELL DISTRIBUTION WIDTH 19.7 % (11.5-14.5)
[2018-10-15] MEDS: LANSOPRAZOLE 30 MG CAP GTB (06:07)
[2018-10-15] MEDS: metroNIDAZOLE 500 MG TAB PO ×3 (06:07→21:08)
[2018-10-15] MEDS: POTASSIUM PHOSPHATE 30 MM in SOD CHLORIDE 0.9% 250 ML IVPB (06:07)
[2018-10-15 06:10] LABS: LACTIC ACID 1.2 mmol/L (0.5-2.0)
[2018-10-15] MEDS: VASOPRESSIN 60 UNIT in DEXTROSE 5% 57 ML IV (08:30)
[2018-10-15] MEDS: MULTIVIT/CA CARB/B CMPLX/FA TAB NGT (10:01)
[2018-10-15] MEDS: LACTOBACILLUS RHAMNOSUS CAP GTB ×2 (10:01→20:53)
[2018-10-15] MEDS: MIDODRINE 5 MG TAB GTB ×3 (10:02→20:54)
[2018-10-15] MEDS: BALSAM PERU/CASTOR OIL 60 GM TUBE TOP ×2 (10:02→20:55)
[2018-10-15 10:15] LABS: ANION GAP 11 (5-13); BLOOD UREA NITROGEN 93 mg/dl (7-20); CALCIUM 7.6 mg/dl (8.4-10.2); CARBON DIOXIDE 21 mmol/L (21-31); CHLORIDE 107 mmol/L (97-110); CREATININE 3.71 mg/dl (0.61-1.24); GLUCOSE 109 mg/dl (70-220); MAGNESIUM 1.9 mg/dl (1.7-2.5); PHOSPHORUS 5.1 mg/dl (2.5-4.9); POTASSIUM 4.5 mmol/L (3.5-5.1); SODIUM 139 mmol/L (135-144)
[2018-10-15] MEDS: HYDROmorphONE 0.5 MG/0.5 ML SYG IV (15:23)
[2018-10-15] MEDS ORDERED: NORepinephrine 8MG/250 ML (PMX 250 ML IV (20:30)
[2018-10-15] MEDS: ALBUMIN HUMAN 25% 100 ML IV (20:30)
[2018-10-15] MEDS: SOD CHLORIDE 0.9% 100 ML IV (20:52)
[2018-10-16] MEDS: VANCOMYCIN HCL 250 MG/5ML POSYG PO ×5 (06:46→23:35)
[2018-10-16] MEDS: LANSOPRAZOLE 30 MG CAP GTB (06:47)
[2018-10-16] MEDS: metroNIDAZOLE 500 MG TAB PO ×3 (06:47→21:47)
[2018-10-16] MEDS: MIDODRINE 5 MG TAB GTB ×3 (09:47→18:29)
[2018-10-16] MEDS: MULTIVIT/CA CARB/B CMPLX/FA TAB NGT (09:47)
[2018-10-16] MEDS: LACTOBACILLUS RHAMNOSUS CAP GTB ×2 (09:47→21:46)
[2018-10-16] MEDS: BALSAM PERU/CASTOR OIL 60 GM TUBE TOP ×2 (09:47→21:46)
[2018-10-16] MEDS: AMIKACIN 350 MG in DEXTROSE 5% 100 ML IVPB (12:51)
[2018-10-16 14:28] LABS: PT RATIO 1.4
[2018-10-16 14:57] LABS: INR 1.46; PROTIME 17.8 Sec (11.9-14.9)
[2018-10-16 14:58] LABS: PARTIAL THROMBOPLASTIN TIME 33.5 Sec (23.0-35.0)
[2018-10-16] MEDS: VANCOMYCIN 1 GM 250 ML IVPB (15:22)
[2018-10-16] MEDS: HYDROmorphONE 0.5 MG/0.5 ML SYG IV (18:29)
[2018-10-16] MEDS: EPOETIN ALFA-EPBX (ESRD) 10,000 UNIT/ML VIAL SC (23:35)
[2018-10-17 05:45] LABS: WHITE BLOOD COUNT 7.8 10^3/ul (4.8-10.8)
[2018-10-17 05:45] LABS: ADD MAN DIFF? NO; BASOPHILS % 0.1 % (0.0-2.0); EOSINOPHILS % 0.1 % (0.0-7.0); LYMPHOCYTES # 0.7 10^3/ul (0.8-2.9); LYMPHOCYTES % 8.6 % (15.0-51.0); MEAN CORPUSCULAR HEMOGLOBIN 32.7 pg (29.0-33.0); MONOCYTE # 0.9 10^3/ul (0.3-0.9); MONOCYTES % 11.2 % (0.0-11.0); NUCLEATED RED BLOOD CELLS # 0.4 10^3/ul (0.0-0.0); NUCLEATED RED BLOOD CELLS% 4.9 /100WBC (0.0-0.0); PLATELET COUNT 160 10^3/UL (140-415); RED BLOOD COUNT 2.45 10^6/ul (4.70-6.10); RED CELL DISTRIBUTION WIDTH 19.2 % (11.5-14.5)
[2018-10-17] MEDS: ALTEPLASE (CATHFLO) 2 MG INJ CATHETER ×2 (06:03→06:05)
[2018-10-17] MEDS: LANSOPRAZOLE 30 MG CAP GTB (06:04)
[2018-10-17] MEDS: metroNIDAZOLE 500 MG TAB PO ×3 (06:04→22:29)
[2018-10-17] MEDS: VANCOMYCIN HCL 250 MG/5ML POSYG PO ×4 (06:05→23:53)
[2018-10-17] MEDS: HYDROmorphONE 0.5 MG/0.5 ML SYG IV (06:16)
[2018-10-17 06:25] LABS: ANION GAP 14 (5-13); BLOOD UREA NITROGEN 75 mg/dl (7-20); CALCIUM 7.7 mg/dl (8.4-10.2); CARBON DIOXIDE 20 mmol/L (21-31); CHLORIDE 105 mmol/L (97-110); CREATININE 2.81 mg/dl (0.61-1.24); GLUCOSE 154 mg/dl (70-220); MAGNESIUM 1.8 mg/dl (1.7-2.5); PHOSPHORUS 3.5 mg/dl (2.5-4.9); SODIUM 139 mmol/L (135-144)
[2018-10-17] MEDS: MIDODRINE 5 MG TAB GTB ×3 (09:57→22:29)
[2018-10-17] MEDS: LACTOBACILLUS RHAMNOSUS CAP GTB ×2 (09:57→22:29)
[2018-10-17] MEDS: MULTIVIT/CA CARB/B CMPLX/FA TAB NGT (09:57)
[2018-10-17] MEDS: BALSAM PERU/CASTOR OIL 60 GM TUBE TOP ×2 (09:58→21:00)
[2018-10-18] MEDS: metroNIDAZOLE 500 MG TAB PO ×3 (05:58→20:31)
[2018-10-18] MEDS: LANSOPRAZOLE 30 MG CAP GTB (05:58)
[2018-10-18] MEDS: VANCOMYCIN HCL 250 MG/5ML POSYG PO ×4 (05:58→22:54)
[2018-10-18] MEDS: BALSAM PERU/CASTOR OIL 60 GM TUBE TOP ×2 (09:00→22:54)
[2018-10-18] MEDS: LACTOBACILLUS RHAMNOSUS CAP GTB ×2 (10:58→20:31)
[2018-10-18] MEDS: MULTIVIT/CA CARB/B CMPLX/FA TAB NGT (10:58)
[2018-10-18] MEDS: MIDODRINE 5 MG TAB GTB ×3 (10:59→20:31)
[2018-10-18] MEDS: HEPARIN 1000 UNITS/ML 10 ML INJ CATHETER (17:14)
[2018-10-18] MEDS: EPOETIN ALFA-EPBX (ESRD) 10,000 UNIT/ML VIAL SC (18:22)
[2018-10-18] MEDS: AMIKACIN 350 MG in DEXTROSE 5% 100 ML IVPB (18:23)
[2018-10-18] MEDS: AMIKACIN IV PER PHARMACY XX (18:23)
[2018-10-19] MEDS: metroNIDAZOLE 500 MG TAB PO ×2 (04:46→13:53)
[2018-10-19] MEDS: LANSOPRAZOLE 30 MG CAP GTB (04:46)
[2018-10-19] MEDS: VANCOMYCIN HCL 250 MG/5ML POSYG PO ×3 (04:46→18:59)
[2018-10-19] MEDS: MULTIVIT/CA CARB/B CMPLX/FA TAB NGT (11:10)
[2018-10-19] MEDS: LACTOBACILLUS RHAMNOSUS CAP GTB ×2 (11:10→20:49)
[2018-10-19] MEDS: BALSAM PERU/CASTOR OIL 60 GM TUBE TOP ×2 (11:11→20:49)
[2018-10-19] MEDS: ALBUMIN HUMAN 25% 100 ML IV (11:12)
[2018-10-19] MEDS: MIDODRINE 5 MG TAB GTB ×3 (11:21→20:49)
[2018-10-20 00:16] LABS: AADO2 Arterial 59.2 mmHg (7.0-24.0); Allen Test ACCEPTAB; Arterial Base Excess 1.3 mmol/L (-3.0-3); Arterial Blood Gas Oxygen Sat 97.6 mmHG (95.0-100.0); Arterial COHb 0.3 % (0.0-3.0); Arterial Fraction of Oxyhgb 97.1 % (93.0-99.0); Arterial HCO3 25.5 mmol/L (22.0-26.0); Arterial MetHb 0.2 % (0.0-1.5); Arterial pCO2 39.1 mmhg (35-45); Blood Gas IEPAP 20/8; MODE MASK - BIPAP; Site Right Radial
[2018-10-20] MEDS: VANCOMYCIN HCL 250 MG/5ML POSYG PO ×4 (00:27→17:08)
[2018-10-20] MEDS: LANSOPRAZOLE 30 MG CAP GTB (05:02)
[2018-10-20] MEDS: LACTOBACILLUS RHAMNOSUS CAP GTB ×2 (08:29→20:18)
[2018-10-20] MEDS: MULTIVIT/CA CARB/B CMPLX/FA TAB NGT (08:29)
[2018-10-20] MEDS: MIDODRINE 5 MG TAB GTB ×3 (08:30→20:19)
[2018-10-20] MEDS: BALSAM PERU/CASTOR OIL 60 GM TUBE TOP ×2 (08:31→20:19)
[2018-10-20] MEDS: HEPARIN 1000 UNITS/ML 10 ML INJ CATHETER (15:56)
[2018-10-20] MEDS: EPOETIN ALFA-EPBX (ESRD) 10,000 UNIT/ML VIAL SC (17:09)
[2018-10-20] MEDS: traMADol 50 MG TAB GTB (17:10)
[2018-10-21] MEDS: VANCOMYCIN HCL 250 MG/5ML POSYG PO ×3 (00:50→12:11)
[2018-10-21] MEDS: LANSOPRAZOLE 30 MG CAP GTB (05:53)
[2018-10-21] MEDS: MIDODRINE 5 MG TAB GTB ×3 (08:09→21:22)
[2018-10-21] MEDS: LACTOBACILLUS RHAMNOSUS CAP GTB ×2 (08:09→21:22)
[2018-10-21] MEDS: MULTIVIT/CA CARB/B CMPLX/FA TAB NGT (08:09)
[2018-10-21] MEDS: BALSAM PERU/CASTOR OIL 60 GM TUBE TOP ×2 (08:10→21:22)
[2018-10-22] MEDS: ALBUTEROL/IPRATROPIUM (NEB) 3 ML AMP NEB (02:39)
[2018-10-22] MEDS: LANSOPRAZOLE 30 MG CAP GTB (05:41)
[2018-10-22 06:00] LABS: ADD MAN DIFF? NO
[2018-10-22 06:11] LABS: ABNORMAL IP MESSAGE 1; BASOPHILS % 0.3 % (0.0-2.0); EOSINOPHILS % 0.1 % (0.0-7.0); HEMATOCRIT 30.1 % (42.0-52.0); HEMOGLOBIN 9.2 g/dl (14.0-18.0); LYMPHOCYTES # 0.7 10^3/ul (0.8-2.9); LYMPHOCYTES % 7.1 % (15.0-51.0); MEAN CORPUSCULAR HEMOGLOBIN 33.8 pg (29.0-33.0); MEAN CORPUSCULAR HGB CONC 30.6 g/dl (32.0-37.0); MEAN CORPUSCULAR VOLUME 110.7 fl (82.0-101.0); MEAN PLATELET VOLUME 11.9 fl (7.4-10.4); MONOCYTE # 0.7 10^3/ul (0.3-0.9); MONOCYTES % 7.1 % (0.0-11.0); NEUTROPHIL # 8.5 10^3/ul (1.6-7.5); NUCLEATED RED BLOOD CELLS # 0.8 10^3/ul (0.0-0.0); NUCLEATED RED BLOOD CELLS% 7.8 /100WBC (0.0-0.0); PLATELET COUNT 221 10^3/UL (140-415); POSITIVE DIFF @See below; RED BLOOD COUNT 2.72 10^6/ul (4.70-6.10); RED CELL DISTRIBUTION WIDTH 24.6 % (11.5-14.5)
[2018-10-22 06:11] LABS: WHITE BLOOD COUNT 10.1 10^3/ul (4.8-10.8)
[2018-10-22 06:36] LABS: ANION GAP 12 (5-13); BLOOD UREA NITROGEN 98 mg/dl (7-20); CALCIUM 8.2 mg/dl (8.4-10.2); CARBON DIOXIDE 23 mmol/L (21-31); CHLORIDE 100 mmol/L (97-110); GLUCOSE 160 mg/dl (70-220); MAGNESIUM 2.4 mg/dl (1.7-2.5); PHOSPHORUS 4.8 mg/dl (2.5-4.9); POTASSIUM 3.6 mmol/L (3.5-5.1); SODIUM 135 mmol/L (135-144)
[2018-10-22] MEDS: MIDODRINE 5 MG TAB GTB ×3 (08:11→20:14)
[2018-10-22] MEDS: LACTOBACILLUS RHAMNOSUS CAP GTB ×2 (08:11→20:14)
[2018-10-22] MEDS: MULTIVIT/CA CARB/B CMPLX/FA TAB NGT (08:11)
[2018-10-22] MEDS: BALSAM PERU/CASTOR OIL 60 GM TUBE TOP ×2 (08:12→20:30)
[2018-10-22] MEDS: HEPARIN 1000 UNITS/ML 10 ML INJ CATHETER (18:35)
[2018-10-22] MEDS ORDERED: LORAZEPAM 2 MG INJ IM (20:00)
[2018-10-22] MEDS: LORAZEPAM 2 MG INJ IV (20:30)
[2018-10-23] MEDS: LANSOPRAZOLE 30 MG CAP GTB (05:44)
[2018-10-23] MEDS: LACTOBACILLUS RHAMNOSUS CAP GTB ×2 (08:53→21:00)
[2018-10-23] MEDS: MULTIVIT/CA CARB/B CMPLX/FA TAB NGT (08:54)
[2018-10-23] MEDS: MIDODRINE 5 MG TAB GTB ×3 (08:55→20:56)
[2018-10-23] MEDS: FUROSEMIDE 20 MG INJ IV (13:08)
[2018-10-23] MEDS: BALSAM PERU/CASTOR OIL 60 GM TUBE TOP ×2 (13:59→21:50)
[2018-10-23] MEDS: VANCOMYCIN HCL 250 MG/5ML POSYG PO ×2 (20:00)
[2018-10-24 05:59] LABS: ADD MAN DIFF? NO
[2018-10-24 06:04] LABS: ABNORMAL IP MESSAGE 1; BASOPHILS % 0.2 % (0.0-2.0); EOSINOPHILS % 0.2 % (0.0-7.0); HEMATOCRIT 30.1 % (42.0-52.0); HEMOGLOBIN 9.3 g/dl (14.0-18.0); LYMPHOCYTES # 1.1 10^3/ul (0.8-2.9); LYMPHOCYTES % 12.6 % (15.0-51.0); MEAN CORPUSCULAR HGB CONC 30.9 g/dl (32.0-37.0); MEAN CORPUSCULAR VOLUME 113.2 fl (82.0-101.0); MEAN PLATELET VOLUME 11.7 fl (7.4-10.4); MONOCYTE # 1.1 10^3/ul (0.3-0.9); MONOCYTES % 12.7 % (0.0-11.0); NEUTROPHIL # 6.2 10^3/ul (1.6-7.5); NEUTROPHILS % 72.4 % (39.0-77.0); NUCLEATED RED BLOOD CELLS # 2.3 10^3/ul (0.0-0.0); NUCLEATED RED BLOOD CELLS% 26.9 /100WBC (0.0-0.0); PLATELET COUNT 212 10^3/UL (140-415); POSITIVE DIFF @See below; RED BLOOD COUNT 2.66 10^6/ul (4.70-6.10); RED CELL DISTRIBUTION WIDTH 27.1 % (11.5-14.5)
[2018-10-24 06:04] LABS: WHITE BLOOD COUNT 8.6 10^3/ul (4.8-10.8)
[2018-10-24] MEDS: VANCOMYCIN HCL 250 MG/5ML POSYG PO ×3 (06:30→12:38)
[2018-10-24] MEDS: LANSOPRAZOLE 30 MG CAP GTB (06:35)
[2018-10-24 06:37] LABS: ANION GAP 12 (5-13); BLOOD UREA NITROGEN 93 mg/dl (7-20); CALCIUM 8.3 mg/dl (8.4-10.2); CARBON DIOXIDE 25 mmol/L (21-31); CHLORIDE 98 mmol/L (97-110); CREATININE 2.81 mg/dl (0.61-1.24); GLUCOSE 138 mg/dl (70-220); POTASSIUM 4.3 mmol/L (3.5-5.1); SODIUM 135 mmol/L (135-144)
[2018-10-24] MEDS: MULTIVIT/CA CARB/B CMPLX/FA TAB NGT (09:02)
[2018-10-24] MEDS: LACTOBACILLUS RHAMNOSUS CAP GTB (09:02)
[2018-10-24] MEDS: MIDODRINE 5 MG TAB GTB ×2 (09:02→12:38)
[2018-10-24] MEDS: BALSAM PERU/CASTOR OIL 60 GM TUBE TOP (09:03)
[2018-10-24] MEDS: ALBUTEROL/IPRATROPIUM (NEB) 3 ML AMP NEB (12:57)
[2018-10-24] MEDS ORDERED: morphine 2 MG INJ IV (15:00)
[2018-10-24] MEDS ORDERED: LORAZEPAM 2 MG INJ IV (15:30)
[2018-10-24] MEDS: morphine 2 MG INJ IV (15:32)
[2018-10-24] MEDS ORDERED: morphine (DRIP) 100 MG/100 ML 100 ML IV (16:00)
[2018-10-24] MEDS: EPOETIN ALFA-EPBX (ESRD) 10,000 UNIT/ML VIAL SC (16:48)
== END 2018-10-24 15:45 | disposition expired | DRG 871 ==
LOC: 6WM 10-17 20:54 → 2NE 10-24 00:26 → E/R 22:32 → ICU 10-11 01:39
PROVIDERS: Pediatrics
PROC: 02HV33Z Insertion of Infusion Device into Superior Vena Cava, Percutaneous Approach (ICD-10-PCS; principal; 2018-10-11)
PROC: 5A1D70Z Performance of Urinary Filtration, Intermittent, Less than 6 Hours Per Day (ICD-10-PCS; 2018-10-11)
PROC: 5A09457 Assistance with Respiratory Ventilation, 24-96 Consecutive Hours, Continuous Positive Airway Pressure (ICD-10-PCS; 2018-10-11)
PROC: 30233N1 Transfusion of Nonautologous Red Blood Cells into Peripheral Vein, Percutaneous Approach (ICD-10-PCS; 2018-10-12)
DX: A41.9 Sepsis, unspecified organism (principal); R65.21 Severe sepsis with septic shock; J96.01 Acute respiratory failure with hypoxia; N18.6 End stage renal disease; J69.0 Pneumonitis due to inhalation of food and vomit; G92 Toxic encephalopathy; E87.1 Hypo-osmolality and hyponatremia; I42.9 Cardiomyopathy, unspecified; E87.2 Acidosis; A04.72 Enterocolitis due to Clostridium difficile, not specified as recurrent; I12.0 Hypertensive chronic kidney disease with stage 5 chronic kidney disease or end stage renal disease; I82.502 Chronic embolism and thrombosis of unspecified deep veins of left lower extremity; E87.70 Fluid overload, unspecified; F03.90 Unspecified dementia, unspecified severity, without behavioral disturbance, psychotic disturbance, mood disturbance, and anxiety; D63.1 Anemia in chronic kidney disease; I25.10 Atherosclerotic heart disease of native coronary artery without angina pectoris; I73.9 Peripheral vascular disease, unspecified; L89.152 Pressure ulcer of sacral region, stage 2; L89.629 Pressure ulcer of left heel, unspecified stage; L89.619 Pressure ulcer of right heel, unspecified stage; L89.899 Pressure ulcer of other site, unspecified stage; R13.10 Dysphagia, unspecified; Y95 Nosocomial condition; Z99.2 Dependence on renal dialysis; Z66 Do not resuscitate; Z93.1 Gastrostomy status
CPT/HCPCS: 36430; 36569; 36600; 70450; 71045; 76604; 76937; 80048; 80053; 80202; 82550; 82553; 82803; 82962; 83605; 83735; 83930; 84100; 84484; 84560; 85025; 85610; 85730; 86644; 86850; 86900; 86901; 86920; 86945; 87040-91; 87045; 87075; 87081; 87340; 90935; 92610; 93005; 94640; 94660; 94664; 97110; 97163; 97530; 99285-25